=== PATIENT | female | born 1955 | race Two or more races ===

== ENCOUNTER 2024-09-15 20:29 | Emergency (ER) | payer OTHER, MEDICAID ==
[~2024-09-15] VITALS: Ht 162.6 cm; Wt 68.1 kg
--- NOTE | 2024-09-15 20:43 | ED.PDOC ---
History of Present Illness HPI Comments 69-year-old female who came to ER via EMS for hyperglycemia. Patient does have history of diabetes. Patient was picked at urgent care, were in patient was being checked up or episodes of nausea and vomiting for the past 4 days, along with some upper back pains. Currently being treated for urinary tract infe ction. Blood sugar was 331. 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 Family History Family History: Reviewed,noncontributory to illness Social History Smoker: Non-Smoker Alcohol: Denies ETOH Use Drugs: Denies Drug Use Lives In: Home Constitutional: reports: fatigue, weakness; denies: chills, diaphoresis, fever, malaise, sweats, others EENTM: denies: blurred vision, double vision, ear bleeding, ear discharge, ear drainage, ear pain, ear ringing, eye pain, eye redness, hearing loss, mouth pain, mouth swelling, nasal discharge, nose bleeding, nose congestion, nose pain, photophobia, tearing, throat pain, throat swelling, voice changes, others Respiratory: denies: cough, hemoptysis, orthopnea, SOB at rest, shortness of breath, SOB with excertion, stridor, wheezing, others Cardiovascular: denies: chest pain, dizzy spells, diaphoresis, Dyspnea on exertion, edema, irregular heart beat, left arm pain, lightheadedness, palpitations, PND, syncope, others Gastrointestinal: reports: nausea, vomiting; denies: abdomen distended, a bdominal pain, blood streaked bowels, constipated, diarrhea, dysphagia, difficulty swallowing, hematemesis, melena, poor appetite, poor fluid intake, rectal bleeding, rectal pain, others Genitourinary: denies: abnormal vagina bleeding, burning, dyspareunia, dysuria, flank pain, frequency, hematuria, incontinence, pain, , vagina discharge, urgency, others Neurological: denies: dizziness, fainting, headache, left sided numbness, left sided weakness, numbness, paresthesia, pre-existing deficit, right sided numbness, right sided weakness, seizure, speech problems, tingling, tremors, we akness, others Musculoskeletal: reports: back pain; denies: gout, joint pain, joint swelling, muscle pain, muscle stiffness, neck pain, others Integumetry: denies: bruises, change in color, change in hair/nails, dryness, laceration, lesions, lumps, rash, wounds, others Allergic/Immunocompromised: denies: Difficulty Healing, Frequent Infections, Hives, Itching, others Hematologic/Lymphatic: denies: anemia, blood clots, easy bleeding, easy bruising, swollen glands, others Endocrine: denies: excessive hunger, excessive sweating, excessive thirst, excessive urination, flushing, intolerance to cold, intolerance to heat, unexplained weight gain, unexplained weight loss, others Psychiatric: denies: anxiety, bipolar disorder, depression, hopeless, panic disorder, schizophrenia, sleepless, suicidal, others Physical Exam General Appearance: No Apparent Distress, Normal HEENT: Normal ENT Inspection, Pharynx Normal, TMs Normal Neck: Full Range of Motion, Non-Tender, Normal, Normal Inspection Respiratory: Chest Non-Tender, Lungs Clear, No Accessory Muscle Use, No Respiratory Distress, Normal Breath Sounds Cardiovascular: No Edema, No JVD, No Murmur, No Gallop, Normal Peripheral Pulses, Regular Rate/Rhythm Breast Exam: Deferred Gastrointestinal: No Organomegaly, Non Tender, No Pulsatile Mass, Normal Bowel Sounds, Soft Genitalia: Deferred Pelvic: Deferred Rectal: Deferred Extremities: No calf tenderness, Normal capillary refill, Normal inspection, Normal range of motion, Non-tender, No pedal edema Musculoskeletal : Apperance: Normal Neurologic: Alert, 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 Was a procedure done?: No Differential Dx Considerations may include: Gastritis, urinary tract infection, hyperglycemia, diabetic ketoacidosis, electrolyte imbalance X-Ray, Labs, Meds, VS Vital Signs Date Time Temp Pulse Resp B/P (MAP) Pulse Ox O2 Delivery O2 Flow Rate FiO2 09/15/24 22:13 81 20 100 Room Air 09/15/24 22:13 98.8 81 20 146/83 (104) 100 98.8 09/15/24 20:35 99.1 83 16 152/58 (89) 95 Lab Test 09/15/24 21:51 09/15/24 20:56 Range/Units Troponin I High Sensitivity < 3 L < 3 L </=34 ng/L White Blood Count 9.4 4.4-10.8 10^3/uL Red Blood Count 5.39 H 4.0-5.20 10^6/uL Hemoglobin 15.5 12.2-16.2 g/dL Hematocrit 45.5 36.0-46.0 % Mean Corpuscular Volume 84.3 80.0-100.0 fL Mean Corpuscular Hemoglobin 28.7 28.0-32.0 pg Mean Corpuscular Hemoglobin Concent 34.0 32.0-36.0 g/dL Red Cell Distribution Width 14.4 H 11.8-14.3 % Platelet Count 255 140-450 10^3/uL Mean Platelet Volume 7.5 6.9-10.8 fL Neutrophils (%) (Auto) 57.6 37.0-80.0 % Lymphocytes (%) (Auto) 36.6 10.0-50.0 % Monocytes (%) (Auto) 4.4 0.0-12.0 % Eosinophils (%) (Auto) 0.7 0.0-7.0 % Basophils (%) (Auto) 0.7 0.0-2.0 % Neutrophils # (Auto) 5.4 1.6-8.6 10 ^3/uL Lymphocytes # (Auto) 3.4 0.4-5.4 10 ^3/uL Monocytes # (Auto) 0.4 0-1.3 10 ^3/uL Eosinophils # (Auto) 0.1 0-0.8 10 ^3/uL Basophils # (Auto) 0.1 0-0.2 10 ^3/uL Nucleated Red Blood Cells 0.0 % Sodium Level 135 L 136-145 mmol/L Potassium Level 3.7 3.5-5.1 mmol/L Chloride Level 97 L 98-107 mmol/L Carbon Dioxide Level 24 20-31 mmol/L Anion Gap 14 5-15 Blood Urea Nitrogen 18 9-23 mg/dL Creatinine 0.82 0.550-1.02 mg/dL Glomerular Filtration Rate Calc 78 >90 mL/min BUN/Creatinine Ratio 22.0 H 10.0-20.0 Serum Glucose 289 H 74-106 mg/dL Calcium Level 10.7 H 8.7-10.4 mg/dL Total Bilirubin 0.8 0.2-1.0 mg/dL Aspartate Amino Transferase (AST) 27 13-40 U/L Alanine Aminotransferase (ALT) 35 7-40 U/L Alkaline Phosphatase 123 H 46-116 U/L Total Protein 7.6 5.7-8.2 g/dL Albumin 4.7 3.2-4.8 g/dL Current Medications Medications (Trade) Dose Ordered Sig/Tim Route Start Time Stop Time Status Last Admin Sodium Chloride 1,000 ml @ 1,000 mls/hr Q1H ONCE IV 09/15/24 20:45 09/15/24 21:44 DC 09/15/24 22:00 Ondansetron HCl (Zofran) 4 mg ONCE ONCE IV 09/15/24 20:45 09/15/24 20:46 DC 09/15/24 21:59 Ceftriaxone Sodium 50 ml @ 100 mls/hr ONCE ONCE IV 09/15/24 20:45 09/15/24 21:14 DC 09/15/24 22:00 Ketorolac Tromethamine (Toradol Injection) 30 mg ONCE ONCE IV 09/15/24 20:45 09/15/24 20:46 DC 09/15/24 22:00 Acetaminophen (Tylenol Tablet) 650 mg ONCE ONCE PO 09/15/24 20:45 09/15/24 20:46 DC 09/15/24 22:00 Exam: CT CT AB PEL WO CON-NO ORAL OR IV Findings: Lung Bases: No acute or significant lung base finding. Normal heart size. No pleural or pericardial effusion. Liver: The liver is normal in size. No focal lesions. Gallbladder and Biliary Tree: Gallbladder is been surgically removed. Spleen: Unremarkable Pancreas: The pancreas is grossly normal in appearance. Adrenal Glands: Unremarkable Kidneys: Kidneys are grossly normal without calculi or hydronephrosis. Small 2 cm hypodense cortical lesion left kidney most likely a cyst. Bladder: Grossly unremarkable for degree of distention. Bowel: The stomach is grossly normal in appearance. Small bowel and colon are normal in caliber and distribution. The appendix is not visualized; however, no secondary findings of acute appendicitis identified. Ascites: Absent Lymphadenopathy: No mesenteric, retroperitoneal or periportal lymphadenopathy. Abdominal Wall and Mesentery: Unremarkable. Vasculature: The visualized abdominal aorta is normal in size and caliber. Evaluation of abdominal and pelvic vessels is limited due to lack of intravenous contrast. Pelvic Organs: Unremarkable Musculoskeletal: No aggressive focal bony lesions, acute fractures or dislocation. Soft tissues: Unremarkable IMPRESSION: 1. Gallbladder has been surgically removed. 2. No abnormally dilated bowel to suggest bowel obstruction. 3. Small 2 cm cyst left kidney 4. No nephrolithiasis or hydronephrosis. CHEST RADIOGRAPH FINDINGS: Lines and Tubes: None Lungs: Clear Pleura: No effusion. No pneumothorax. Cardiomediastinal contours: Unremarkable Bones: Unremarkable IMPRESSION: 1. Clear lungs. First and 2nd troponin is three. EKG shows no signs of ischemia. CBC is normal. CMP is essentially normal. Itself the blood sugar is 289 The patient will be discharged to follow up with the primary care physician she can return to the emergency room and continue antibiotics which she was given by the urgent care. Time of 1ST Reevaluation: 20:40 Reevaluation 1ST: Unchanged Patient Education/Counseling: Diagnosis, Treatment Family Education/Counseling: No Family Present Departure 1 Departure Time of Disposition: 23:19 Impression: Primary Impression: Hyperglycemia Additional Impressions: Gastroenteritis UTI (urinary tract infection) Disposition: 01 HOME / SELF CARE / HOMELESS Condition: Stable Additional Instructions: Reassessed patient, vital signs stable. Denies any new symptoms. Patient is able to tolerate PO and ambulate/be mobile at their baseline without concern. Risks and benefits of all medications given or prescribed, if any, discussed. All lab work, imaging and diagnostic studies were reviewed by me. The patient was counseled extensively on my clinical impression, diagnosis, expected course of the disease, and plan, including their follow-up care. Will discharge patient. Patient instructed to follow up with Primary Care Physician within 24-48 hours. Strict return precautions given for further exacerbation of symptoms or for new symptoms. The patient was given the opportunity to ask questions and all questions were answered by myself and the nursing/tech staff. Patient is in agreement with the care plan. The patient verbally expressed understanding of the discharge instructions, including the reasons to return to the Emergency Department. Discharged With: Self Critical Care Note Critical Care Time?: Yes (35 min-critical care time only) Critical care comment: Hyperglycemia Stability Stability form required: No Heart Score Heart Score: Heart Score Response (Comments) Value History N/A 0 EKG N/A 0 Age N/A 0 Risk Factors N/A 0 Troponin N/A 0 Total 0 I personally scribed for BUCK MARTI MD ([email or web address]) on 09/15/24 at 20:43. Electronically submitted by Kendell Piedra ([email or web address]). I personally scribed for BUCK MARTI MD ([email or web address]) on 09/15/24 at 22:43. Electronically submitted by Kendell Piedra ([email or web address]). BUCK MARTI MD Sep 15, 2024 20:43
[2024-09-15 21:13] LABS: Basophils # (auto) 0.1 10 ^3/uL (0-0.2); Basophils % (auto) 0.7 % (0.0-2.0); Eosinophils # (auto) 0.1 10 ^3/uL (0-0.8); Eosinophils % (auto) 0.7 % (0.0-7.0); Hematocrit 45.5 % (36.0-46.0); Hemoglobin 15.5 g/dL (12.2-16.2); Lymphocytes # (auto) 3.4 10 ^3/uL (0.4-5.4); Lymphocytes % (auto) 36.6 % (10.0-50.0); Mean Corpuscular Hemoglobin 28.7 pg (28.0-32.0); Mean Corpuscular Volume 84.3 fL (80.0-100.0); Monocytes # (auto) 0.4 10 ^3/uL (0-1.3); Monocytes % (auto) 4.4 % (0.0-12.0); Neutrophils # (auto) 5.4 10 ^3/uL (1.6-8.6); Neutrophils % (auto) 57.6 % (37.0-80.0); Platelet Count (auto) 255 10^3/uL (140-450); Red Blood Cells 5.39 10^6/uL (4.0-5.20); Red Cell Distribution Width 14.4 % (11.8-14.3); White Blood Cell 9.4 10^3/uL (4.4-10.8)
[2024-09-15 21:34] LABS: Alanine Aminotransferase 35 U/L (7-40); Albumin 4.7 g/dL (3.2-4.8); Anion Gap 14 (5-15); Aspartate Aminotransferase 27 U/L (13-40); Bilirubin, Total 0.8 mg/dL (0.2-1.0); Blood Urea Nitrogen 18 mg/dL (9-23); Carbon Dioxide 24 mmol/L (20-31); Potassium 3.7 mmol/L (3.5-5.1)
[2024-09-15 21:35] LABS: Total Protein 7.6 g/dL (5.7-8.2)
[2024-09-15 21:42] LABS: Chloride 97 mmol/L (98-107); Sodium 135 mmol/L (136-145)
--- NOTE | 2024-09-15 21:46 | DVH ---
CHEST RADIOGRAPH Indication: N/V Technique: Single frontal view of the chest was obtained Comparison: None FINDINGS: Lines and Tubes: None Lungs: Clear Pleura: No effusion. No pneumothorax. Cardiomediastinal contours: Unremarkable Bones: Unremarkable IMPRESSION: 1. Clear lungs.
[2024-09-15 21:48] LABS: Alkaline Phosphatase 123 U/L (46-116); Calcium 10.7 mg/dL (8.7-10.4); Glucose 289 mg/dL (74-106)
[2024-09-15] MEDS: ONDANSETRON HCL 4 MG/2 ML VIAL IV ONE (21:59)
[2024-09-15] MEDS: ACETAMINOPHEN 325 MG TAB PO ONE (22:00)
[2024-09-15] MEDS: SODIUM CHLORIDE 0.9% 1,000 ML IV ONE (22:00)
[2024-09-15] MEDS: cefTRIAXone 1GM/50ML D5W 50 ML IV ONE (22:00)
[2024-09-15] MEDS: KETOROLAC TROMETH 30 MG/ML 1ML VIAL IV ONE (22:00)
--- NOTE | 2024-09-15 22:03 | DVH ---
Exam: CT CT AB PEL WO CON-NO ORAL OR IV History: n/v Comparison Study: None available at time of dictation. TECHNIQUE: Multidetector CT of the abdomen was performed from lung bases to pubic symphysis. Imaging was performed without IV contrast. Axial, coronal and sagittal multiplanar reformats were obtained fr om the axial data set by the technologist. Radiation Dose Information: CT Dose: CTDI volume is 11.72 mGy. Dose-length product is 672.48 mGy*cm FINDINGS: Evaluation of solid organs is limited due to lack of intravenous contrast use. Findings: Lung Bases: No acute or significant lung base finding. Normal heart size. No pleural or pericardial effusion. Liver: The liver is normal in size. No focal lesions. Gallbladder and Biliary Tree: Gallbladder is been surgically removed. Spleen: Unremarkable Pancreas: The pancreas is grossly normal in appearance. Adrenal Glands: Unremarkable Kidneys: Kidneys are grossly normal without calculi or hydronephrosis. Small 2 cm hypodense cortical lesion left kidney most likely a cyst. Bladder: Grossly unremarkable for degree of distention. Bowel: The stomach is grossly normal in appearance. Small bowel and colon are normal in caliber and d istribution. The appendix is not visualized; however, no secondary findings of acute appendicitis id entified. Ascites: Absent Lymphadenopathy: No mesenteric, retroperitoneal or periportal lymphadenopathy. Abdominal Wall and Mesentery: Unremarkable. Vasculature: The visualized abdominal aorta is normal in size and caliber. Evaluation of abdominal a nd pelvic vessels is limited due to lack of intravenous contrast. Pelvic Organs: Unremarkable Musculoskeletal: No aggressive focal bony lesions, acute fractures or dislocation. Soft tissues: Unremarkable IMPRESSION: 1. Gallbladder has been surgically removed. 2. No abnormally dilated bowel to suggest bowel obstruction. 3. Small 2 cm cyst left kidney 4. No nephrolithiasis or hydronephrosis. Radiation optimization: All CT scans at this facility use at least one of these dose optimization te chniques: automated exposure control mA and/or kV adjustment per patient size (includes targeted exa ms where dose is matched to clinical indication) or iterative reconstruction.
[2024-09-15 22:13] VITALS: BP 146/83; PULSE 81; RESP 20; TEMP 98.8; O2SAT 100
[2024-09-16] MEDS ORDERED: LEVO500T91 PO (01:20)
[2024-09-16] MEDS ORDERED: ZOFR4T SL (01:20)
== END 2024-09-16 01:35 | disposition home or self-care (01) ==
LOC: EDBD 20:29 → EDUNIT# 20:29 → ER 20:36
DX: E11.65 Type 2 diabetes mellitus with hyperglycemia (principal); K52.9 Noninfective gastroenteritis and colitis, unspecified; N39.0 Urinary tract infection, site not specified; Z88.1 Allergy status to other antibiotic agents; Z90.49 Acquired absence of other specified parts of digestive tract; Z90.710 Acquired absence of both cervix and uterus
CPT/HCPCS: 36415; 71045; 74176; 80053; 82947; 84484; 85025; 96365; 96375; 99285; J0696; J1885; J2405; J7030

== ENCOUNTER 2025-02-05 20:41 | Inpatient (IN) | payer OTHER, MEDICAID ==
[~2025-02-05] VITALS: Ht 165.1 cm; Wt 79.8 kg
[~2025-02-05 20:41] MED LIST: LEVO500T91 PO; ZOFR4T SL
--- NOTE | 2025-02-05 20:55 | ED.PDOC ---
History of Present Illness HPI Comments 69-year-old female brought in by EMS presents with a chief complaint of dizziness and headache x onset 0800 this morning. Patient states that she has been having dizziness since this morning and thought that it would go away on its own, but it has not. Patient denies any falls or trauma recently. Patient reports that she is nauseated, but denies any active vomiting. Patient also mentions that she is currently battling a UTI and as foul odor to her urine. Chief Complaint: Dizziness Time Seen by MD: 20:44 Primary Care Provider: Dr. Alicia Reviewed Notes: Medications, Allergies Allergies: Coded Allergies: Azithromycin (Verified Allergy, Unknown, 09/15/24) Cyclobenzaprine (Verified Allergy, Unknown, 02/05/25) Nitrofurantoin (Verified Allergy, Unknown, 02/05/25) Penicillins (Verified Allergy, Unknown, 02/05/25) Sulfa Antibiotics (Verified Allergy, Unknown, 02/05/25) Home Meds Active Scripts Ondansetron Odt 4MG Tab (ZOFRAN PO) 4 Mg Tb, 4 MG SL QIDPRN, #20 TAB ODT TAB-DISSOLVE IN MOUTH, THEN SWALLOW Prov:BUCK MARTI MD 09/16/24 Levofloxacin Hemihydrate (LEVAQUIN 500 MG) 500 Mg Tab, 500 MG PO DAILY for 7 Days, #7 TAB Prov:BUCK MARTI MD 09/16/24 Information Source: Patient, Emergency Med Personnel Mode of Arrival: EMS Severity: Moderate Timing: Hours Duration: Since onset 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 No acute distress. Skin: Skin in warm, dry and intact. Appropriate color for ethnicity. HEENT: The head is normocephalic and atraumatic. Conjunctivae are clear without exudates or hemorrhage. Sclera is non-icteric. EOM are intact. No signs of nystagmus. Eyelids are normal in appearance without swelling or lesions. Oral mucosa is pink and moist Neck: The neck is supple with normal range of motion. No JVD. Cardiac: Heart rate and rhythm are normal. No murmurs, gallops, or rubs are auscultated. Respiratory: No signs of respiratory distress. Lung sounds are clear in all lobes bilaterally without rales, rhonchi, or wheezes. Abdominal: Abdomen is soft, non-tender without distention. Bowel sounds are present and normoactive in all four quadrants. Extremities: Upper and lower extremities are atraumatic in appearance without deformity or edema. Neurological: The patient is awake, alert and oriented to person, place, and time with normal speech. Speech is clear. There is no facial asymmetry. No upper or lower extremity drift. Psychiatric: Appropriate mood and affect. Good judgement and insight. Review of Systems: REVIEW OF SYSTEMS: No fever, positive chills, or fatigue HEENT: No sore throat, no earache, no congestion, no neck pain. Cardiac: No chest pain. Positive palpitations. Lungs: No shortness of breath, no cough. GI: Positive nausea, no vomiting, no diarrhea, no constipation, no abdominal pain : Positive dysuria, frequency, or urgency. No hematuria. Positive urine odor. Musculoskeletal: No joint pain , no joint swelling, no extremity edema. Positive back pain Skin: No rash, no itching. 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 Was a procedure done?: No EKG EKG : Pulse Rate (adult): 69 [place]: Normal Cardiac Rhythm: NSR Block: None Hypertrophy: None ST: Normal Comments Nonspecific ST change. No STEMI Differential Dx Considerations may include: Differential diagnoses considered include but are not limited to cardiac structural disease, arrhythmia, acute coronary syndrome, orthostasis, pulmonary embolism, dissection, seizure, basilar stroke, other. X-Ray, Labs, Meds, VS Vital Signs Date Time Temp Pulse Resp B/P (MAP) Pulse Ox O2 Delivery O2 Flow Rate FiO2 02/05/25 21:16 98.6 89 16 127/87 (100) 96 98.6 02/05/25 20:56 69 02/05/25 20:49 98.8 66 16 139/83 (101) 99 98.8 02/05/25 20:45 69 Lab Test 02/05/25 22:06 02/05/25 21:06 02/05/25 00:00 Range/Units Troponin I High Sensitivity 3 L 3 L </=34 ng/L White Blood Count 7.0 4.4-10.8 10^3/uL Red Blood Count 4.78 4.0-5.20 10^6/uL Hemoglobin 13.3 12.2-16.2 g/dL Hematocrit 37.6 36.0-46.0 % Mean Corpuscular Volume 78.7 L 80.0-100.0 fL Mean Corpuscular Hemoglobin 27.8 L 28.0-32.0 pg Mean Corpuscular Hemoglobin Concent 35.3 32.0-36.0 g/dL Red Cell Distribution Width 14.3 11.8-14.3 % Platelet Count 235 140-450 10^3/uL Mean Platelet Volume 7.1 6.9-10.8 fL Neutrophils (%) (Auto) 59.9 37.0-80.0 % Lymphocytes (%) (Auto) 31.7 10.0-50.0 % Monocytes (%) (Auto) 5.1 0.0-12.0 % Eosinophils (%) (Auto) 2.5 0.0-7.0 % Basophils (%) (Auto) 0.8 0.0-2.0 % Neutrophils # (Auto) 4.2 1.6-8.6 10 ^3/uL Lymphocytes # (Auto) 2.2 0.4-5.4 10 ^3/uL Monocytes # (Auto) 0.4 0-1.3 10 ^3/uL Eosinophils # (Auto) 0.2 0-0.8 10 ^3/uL Basophils # (Auto) 0.1 0-0.2 10 ^3/uL Nucleated Red Blood Cells 0.0 % Sodium Level 137 136-145 mmol/L Potassium Level 3.7 3.5-5.1 mmol/L Chloride Level 99 98-107 mmol/L Carbon Dioxide Level 30 20-31 mmol/L Anion Gap 8 5-15 Blood Urea Nitrogen 13 9-23 mg/dL Creatinine 0.70 0.550-1.02 mg/dL Glomerular Filtration Rate Calc 95 >90 mL/min BUN/Creatinine Ratio 18.6 10.0-20.0 Serum Glucose 327 H 74-106 mg/dL Calcium Level 9.7 8.7-10.4 mg/dL Magnesium Level 1.4 L 1.6-2.6 mg/dL Total Bilirubin 0.7 0.2-1.0 mg/dL Aspartate Amino Transferase (AST) 23 13-40 U/L Alanine Aminotransferase (ALT) 37 7-40 U/L Alkaline Phosphatase 131 H 46-116 U/L B-Type Natriuretic Peptide 12.44 0-100 pg/mL Total Protein 6.8 5.7-8.2 g/dL Albumin 4.1 3.2-4.8 g/dL Urine Color Light-yellow Yellow Urine Clarity Clear Clear Urine pH 7.0 5.0-9.0 Urine Specific [place] 1.025 1.001-1.035 Urine Protein Negative Negative Urine Ketones Negative Negative Urine Blood Negative Negative /uL Urine Nitrite 2+ H Negative Urine Bilirubin Negative Negative Urine Urobilinogen Normal Negative mg/dL Urine Leukocyte Esterase 3+ Negative /uL Urine RBC 3 0 - 4 /hpf Urine Microscopic WBC 64 H 0-5 /HPF Urine Squamous Epithelial Cells Few <5 /hpf Urine Bacteria Few H None Seen /hpf Urine Mucus Few None Seen Urine Glucose 4+ H Normal mg/dL Current Medications Medications (Trade) Dose Ordered Sig/Tim Route Start Time Stop Time Status Last Admin Sodium Chloride 1,000 ml @ 1,000 mls/hr Q1H ONCE IV 02/05/25 21:00 02/05/25 21:59 DC 02/05/25 21:13 Meclizine HCl (Antivert Tablet) 50 mg ONCE ONCE PO 02/05/25 21:00 02/05/25 21:01 DC 02/05/25 21:16 Magnesium Sulfate/ Dextrose 100 ml @ 100 mls/hr ONCE ONCE IV 02/05/25 22:15 02/05/25 23:14 DC 02/05/25 22:34 Time of 1ST Reevaluation: 21:14 Reevaluation 1ST: Unchanged Patient Education/Counseling: Need For Follow Up Family Education/Counseling: No Family Present Departure 1 Departure Time of Disposition: 23:21 Impression: Primary Impression: UTI (urinary tract infection) Additional Impression: Dizziness Disposition: 09 ADMITTED INPATIENT Condition: Stable Comments PATIENT ADMITTED TO HOSPITALIST SERVICE FOR FURTHER TREATMENT, EVALUATION AND MONITORING. Critical Care Note Critical Care Time?: No Stability Stability form required: No Heart Score Heart Score: Heart Score Response (Comments) Value History N/A 0 EKG N/A 0 Age N/A 0 Risk Factors N/A 0 Troponin N/A 0 Total 0 I personally scribed for UGO SOTELO MD ([email or web address]) on 02/05/25 at 20:55. Electronically submitted by Khris Smith ([email or web address]). I personally scribed for UGO SOTELO MD ([email or web address]) on 02/05/25 at 20:56. Elec tronically submitted by Khris Smith ([email or web address]). UGO SOTELO MD February 05, 2025 20:55
[2025-02-05] MEDS: SODIUM CHLORIDE 0.9% 1,000 ML IV ONE (21:13)
[2025-02-05 21:14] LABS: Basophils # (auto) 0.1 10 ^3/uL (0-0.2); Basophils % (auto) 0.8 % (0.0-2.0); Eosinophils # (auto) 0.2 10 ^3/uL (0-0.8); Eosinophils % (auto) 2.5 % (0.0-7.0); Hematocrit 37.6 % (36.0-46.0); Hemoglobin 13.3 g/dL (12.2-16.2); Lymphocytes # (auto) 2.2 10 ^3/uL (0.4-5.4); Lymphocytes % (auto) 31.7 % (10.0-50.0); Mean Corpuscular Hemoglobin 27.8 pg (28.0-32.0); Mean Corpuscular Hgb Conc. 35.3 g/dL (32.0-36.0); Mean Corpuscular Volume 78.7 fL (80.0-100.0); Monocytes # (auto) 0.4 10 ^3/uL (0-1.3); Monocytes % (auto) 5.1 % (0.0-12.0); Neutrophils # (auto) 4.2 10 ^3/uL (1.6-8.6); Neutrophils % (auto) 59.9 % (37.0-80.0); Platelet Count (auto) 235 10^3/uL (140-450); Red Blood Cells 4.78 10^6/uL (4.0-5.20); Red Cell Distribution Width 14.3 % (11.8-14.3)
[2025-02-05] MEDS: MECLIZINE HCL 25 MG TAB PO ONE (21:16)
[2025-02-05 21:32] LABS: Alanine Aminotransferase 37 U/L (7-40); Albumin 4.1 g/dL (3.2-4.8); Anion Gap 8 (5-15); Aspartate Aminotransferase 23 U/L (13-40); BUN/Creatinine Ratio 18.6 (10.0-20.0); Bilirubin, Total 0.7 mg/dL (0.2-1.0); Blood Urea Nitrogen 13 mg/dL (9-23); Calcium 9.7 mg/dL (8.7-10.4); Carbon Dioxide 30 mmol/L (20-31); Chloride 99 mmol/L (98-107); Potassium 3.7 mmol/L (3.5-5.1); Sodium 137 mmol/L (136-145); Total Protein 6.8 g/dL (5.7-8.2)
[2025-02-05 21:34] LABS: Alkaline Phosphatase 131 U/L (46-116); Glucose 327 mg/dL (74-106)
[2025-02-05] MEDS: MAGNESIUM SULFATE 1GM/100ML 100 ML IV ONE (22:34)
[2025-02-05 23:01] LABS: Urine Bacteria FEW /hpf (None Seen); Urine Blood Negative /uL (Negative); Urine Clarity Clear (Clear); Urine Color Light-Yellow (Yellow); Urine Mucus FEW (None Seen); Urine Protein, UAD Negative (Negative); Urine Specific Gravity 1.025 (1.001-1.035); Urine Squamous Epithelial Cell FEW /hpf (<5); Urine Urobilinogen Normal (Negative); Urine WBC 64 /HPF (0-5)
[2025-02-06] MEDS: levoFLOXacin 500MG 100 ML IV ONE (00:27)
[2025-02-06] MEDS ORDERED: ACETAMINOPHEN 325 MG TAB PO PRN (01:45)
[2025-02-06] MEDS ORDERED: DEXTROSE (50%) 50ML SYRG IV PRN (01:45)
[2025-02-06] MEDS ORDERED: ONDANSETRON HCL 4 MG/2 ML VIAL IV PRN (01:45)
[2025-02-06] MEDS ORDERED: HYDROcodone-ACET 5/325MG TAB PO PRN (01:45)
[2025-02-06] MEDS ORDERED: MORPHINE SULFATE INJ 2 MG/ml SYRG IV PRN (01:45)
[2025-02-06] MEDS ORDERED: NITROGLYCERIN 0.4 MG SL TAB SL PRN (01:45)
[2025-02-06] MEDS: SODIUM CHLORIDE 0.9% 1,000 ML IV SCH (02:20)
[2025-02-06 02:27] VITALS: RESP 20; O2SAT 96
--- NOTE | 2025-02-06 04:17 | DVHHP2 ---
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 States she has been dealing with UTI for the past four months. Is scheduled for bladder biopsy with Dr. Mandujano on . At this time patient denies any fevers, chills, headaches, falls, shortness of breath, chest pain,Nausea, vomiting. Cardiovascular: HTN Endocrine: Diabetes Smoke: No Review of Systems Constitutional: Yes: Weakness, Malaise; No: Fever, Chills, Sweats, Other Eyes: No: Pain, Vision change, Conjunctivae inflammation, Eyelid inflammation, Other, Redness ENT: No: Ear pain, Ear discharge, Nose pain, Nose discharge, Nose congestion, Mouth pain, Mouth swelling, Throat pain, Throat swelling, Other Respiratory: No: Cough, Dry, Shortness of breath, SOB with excertion, Wheezing, Hemoptysis, Pleuritic Pain, Sputum, Wheezing, Other Cardiovascular: No: Chest Pain, Palpitations, Orthopnea, Paroxysmal Noc. Dyspnea, Edema, Lt Headedness, Other Gastrointestinal: No: Nausea, Vomiting, Abdominal Pain, Diarrhea, Constipation, Melena, Hematochezia, Other Genitourinary: Dysuria; No Frequency, No Incontinence, No Hematuria, No Retention, No Other Musculoskeletal: No: other, neck pain, shoulder pain, arm pain, back pain, hand pain, leg pain, foot pain Skin: No: Rash, Lesions, Jaundice, Bruising, Other Neurological: Weakness; No: Numbness, Incoordination, Change in speech, Confusion, Seizures, Other Allergies: Coded Allergies: Azithromycin (Verified Allergy, Unknown, 09/15/24) Cyclobenzaprine (Verified Allergy, Unknown, 02/05/25) Nitrofurantoin (Verified Allergy, Unknown, 02/05/25) Penicillins (Verified Allergy, Unknown, 02/05/25) Sulfa Antibiotics (Verified Allergy, Unknown, 02/05/25) Medications Current Medications Medications Dose Ordered Sig/Tim Route Start Time Stop Time Status Last Admin Dose Admin Sodium Chloride 1,000 ml @ 75 mls/hr [id number] IV 02/06/25 01:45 Acetaminophen 650 mg Q6HP PRN PO 02/06/25 01:45 Acetaminophen/ Hydrocodone Bitart 1 tab Q4HP PRN PO 02/06/25 01:45 Ondansetron HCl 4 mg Q4HP PRN IV 02/06/25 01:45 Nitroglycerin 0.4 mg Q5MINP PRN SL 02/06/25 01:45 Morphine Sulfate 2 mg Q30M PRN IV 02/06/25 01:45 Diagnostic Test (Pha) 1 strip ACHS 02/06/25 07:00 Insulin Human Regular HS SC 02/06/25 22:00 Insulin Human Regular AC SC 02/06/25 07:00 Dextrose 50 ml UD PRN IV 02/06/25 01:45 Meclizine HCl 25 mg TIDP PRN PO 02/06/25 01:45 Levofloxacin/ Dextrose 100 ml @ 100 mls/hr DAILY IV 02/06/25 10:00 UNV Exam Vital Signs Vital Signs Date Time Temp Pulse Resp B/P (MAP) Pulse Ox O2 Delivery O2 Flow Rate FiO2 02/06/25 02:33 98.3 72 20 136/56 (82) 96 98.3 02/06/25 02:27 Room Air* 0 21 General Appearance: Alert, Oriented X3, Cooperative, mild distress, Other (Ill appearing) HEENT: Atraumatic, PERRLA, EOMI Respiratory: Clear to auscultation, Normal air movement Cardiovascular: Regular rate, Normal S1, Normal S2 Abdominal: Normal bowel sounds, Soft, No tenderness Extremities: No clubbing, No cyanosis, No edema Skin: No rashes, No breakdown Neuro: Normal speech, Strength at 02/05 X4 ext Psych/Mental Status: Mental status NL, Mood NL Labs/Xrays Labs Test 02/05/25 22:06 02/05/25 21:06 02/05/25 00:00 Range/Units Troponin I High Sensitivity 3 L </=34 ng/L White Blood Count 7.0 4.4-10.8 10^3/uL Red Blood Count 4.78 4.0-5.20 10^6/uL Hemoglobin 13.3 12.2-16.2 g/dL Hematocrit 37.6 36.0-46.0 % Mean Corpuscular Volume 78.7 L 80.0-100.0 fL Mean Corpuscular Hemoglobin 27.8 L 28.0-32.0 pg Mean Corpuscular Hemoglobin Concent 35.3 32.0-36.0 g/dL Red Cell Distribution Width 14.3 11.8-14.3 % Platelet Count 235 140-450 10^3/uL Mean Platelet Volume 7.1 6.9-10.8 fL Neutrophils (%) (Auto) 59.9 37.0-80.0 % Lymphocytes (%) (Auto) 31.7 10.0-50.0 % Monocytes (%) (Auto) 5.1 0.0-12.0 % Eosinophils (%) (Auto) 2.5 0.0-7.0 % Basophils (%) (Auto) 0.8 0.0-2.0 % Neutrophils # (Auto) 4.2 1.6-8.6 10 ^3/uL Lymphocytes # (Auto) 2.2 0.4-5.4 10 ^3/uL Monocytes # (Auto) 0.4 0-1.3 10 ^3/uL Eosinophils # (Auto) 0.2 0-0.8 10 ^3/uL Basophils # (Auto) 0.1 0-0.2 10 ^3/uL Nucleated Red Blood Cells 0.0 % Sodium Level 137 136-145 mmol/L Potassium Level 3.7 3.5-5.1 mmol/L Chloride Level 99 98-107 mmol/L Carbon Dioxide Level 30 20-31 mmol/L Anion Gap 8 5-15 Blood Urea Nitrogen 13 9-23 mg/dL Creatinine 0.70 0.550-1.02 mg/dL Glomerular Filtration Rate Calc 95 >90 mL/min BUN/Creatinine Ratio 18.6 10.0-20.0 Serum Glucose 327 H 74-106 mg/dL Calcium Level 9.7 8.7-10.4 mg/dL Magnesium Level 1.4 L 1.6-2.6 mg/dL Total Bilirubin 0.7 0.2-1.0 mg/dL Aspartate Amino Transferase (AST) 23 13-40 U/L Alanine Aminotransferase (ALT) 37 7-40 U/L Alkaline Phosphatase 131 H 46-116 U/L B-Type Natriuretic Peptide 12.44 0-100 pg/mL Total Protein 6.8 5.7-8.2 g/dL Albumin 4.1 3.2-4.8 g/dL Urine Color Light-yellow Yellow Urine Clarity Clear Clear Urine pH 7.0 5.0-9.0 Urine Specific [place] 1.025 1.001-1.035 Urine Protein Negative Negative Urine Ketones Negative Negative Urine Blood Negative Negative /uL Urine Nitrite 2+ H Negative Urine Bilirubin Negative Negative Urine Urobilinogen Normal Negative mg/dL Urine Leukocyte Esterase 3+ Negative /uL Urine RBC 3 0 - 4 /hpf Urine Microscopic WBC 64 H 0-5 /HPF Urine Squamous Epithelial Cells Few <5 /hpf Urine Bacteria Few H None Seen /hpf Urine Mucus Few None Seen Urine Glucose 4+ H Normal mg/dL Assessment/Plan Assessment/Plan Dizziness Complicated UTI Hypomanesemia DM with hyperglycemia Plan Admit to telemetry Urology consult ( pt scheduled for bladder biopsy with dr mandujano) Monitor BMP. Correct electrolytes as needed. Urine culture pending. IVF. As needed meclizine. IV ABX Blood glucose checks ACHS with regular insulin sliding scale coverage GI ppx pepcid / dvt ppx scd Plan discussed with: Patient My Orders Orders - NOE GLASGOW NP Procedure Category Date Status Time Admit ADMIT 02/06/25 Transmitted 01:35 Code Status CODE 02/06/25 Transmitted 01:35 Vital Signs OFELIA 02/06/25 In Process 01:35 Review Orders With OFELIA 02/06/25 In Process Adm. 01:35 Encourage Activity As OFELIA 02/06/25 In Process Tolerate 01:35 Consistent DIET 02/06/25 Transmitted Carb(Ccho)Diabetes Breakfast Sodium Chloride 0.9% PHA 02/06/25 In Process 01:45 Oxygen By Face Mask RT 02/06/25 Transmitted 01:35 Acetaminophen Tablet PHA 02/06/25 In Process (Tylenol Tablet) 01:45 Notify Of Changes OFELIA 02/06/25 In Process From Base 01:35 Advance Directive OFELIA 02/06/25 In Process 01:35 Basic Metabolic Panel LAB 02/06/25 Logged 05:00 Basic Metabolic Panel LAB 02/07/25 Verified 05:00 Basic Metabolic Panel LAB 02/08/25 Verified 05:00 Basic Metabolic Panel LAB 02/09/25 Verified 05:00 Basic Metabolic Panel LAB 02/10/25 Verified 05:00 Complete Blood Count LAB 02/06/25 Logged 05:00 Complete Blood Count LAB 02/07/25 Verified 05:00 Complete Blood Count LAB 02/08/25 Verified 05:00 Complete Blood Count LAB 02/09/25 Verified 05:00 Complete Blood Count LAB 02/10/25 Verified 05:00 Patient Condition ORDERS 02/06/25 Transmitted 01:35 Allergies OFELIA 02/06/25 In Process 01:35 Hydrocodone-Acet PHA 02/06/25 In Process 5/325mg Tab ([place] 01:45 Ondansetron Hcl PHA 02/06/25 In Process (Zofran) 01:45 Nitroglycerin PHA 02/06/25 In Process Sublingual (Ntrostat 01:45 Morphine Sulfate PHA 02/06/25 In Process Injection 01:45 Stat Ekg For Chest OFELIA 02/06/25 In Process Pain 01:35 Notify Md Of Changes OFELIA 02/06/25 In Process From Base 01:35 Milking Machine Technician For OFELIA 02/06/25 In Process 24 Hours 01:35 Emergency Dysrhythmia OFEILA 02/06/25 In Process Protocol 01:35 Rhythm Strips Once OFELIA 02/06/25 In Process Every Shift 01:35 Oxygen By Nasal RT 02/06/25 Transmitted Cannula 01:35 Glucose Blood PHA 02/06/25 In Process (Accu-Chek Comfort 07:00 Insulin R (Human) PHA 02/06/25 In Process (Insulin R) 22:00 Insulin R (Human) PHA 02/06/25 In Process (Insulin R) 07:00 Dextrose 50% Syringe PHA 02/06/25 In Process 01:45 Urine Bacterial AUBREY 02/06/25 In Process Culture 01:35 * Urology Consult CONS 02/06/25 Transmitted 01:35 Meclizine Tablet PHA 02/06/25 In Process (Antivert Tablet) 01:45 Levofloxacin 500mg PHA 02/06/25 Pending (Levaquin 500mg/ 100m 10:[address] 02/06/25 Logged 04:07 Date of Service: February 06, 2025 Billing Provider: RACHEL HAZEL MD Common Visit Codes: NOT BILLABLE RACHEL HAZEL MD 02/06/25 1225: Review of Systems Allergies: Coded Allergies: Azithromycin (Verified Allergy, Unknown, 09/15/24) Cyclobenzaprine (Verified Allergy, Unknown, 02/05/25) Nitrofurantoin (Verified Allergy, Unknown, 02/05/25) Penicillins (Verified Allergy, Unknown, 02/05/25) Sulfa Antibiotics (Verified Allergy, Unknown, 02/05/25) Assessment/Plan Assessment/Plan Patient's chart is reviewed and discussed with the nurse practitioner. I agree with the nurse practitioner's evaluation, documentation, assessment and care plan as outlined. NOE GLASGOW NP February 06, 2025 04:17 RACHEL HAZEL MD February 06, 2025 12:25
[2025-02-06 05:31] LABS: Basophils # (auto) 0 10 ^3/uL (0-0.2); Basophils % (auto) 0.2 % (0.0-2.0); Eosinophils # (auto) 0.2 10 ^3/uL (0-0.8); Eosinophils % (auto) 2.4 % (0.0-7.0); Hematocrit 35.2 % (36.0-46.0); Hemoglobin 12.7 g/dL (12.2-16.2); Lymphocytes # (auto) 2.4 10 ^3/uL (0.4-5.4); Lymphocytes % (auto) 28.8 % (10.0-50.0); Mean Corpuscular Hemoglobin 28.3 pg (28.0-32.0); Mean Corpuscular Hgb Conc. 36.1 g/dL (32.0-36.0); Mean Corpuscular Volume 78.4 fL (80.0-100.0); Monocytes # (auto) 0.5 10 ^3/uL (0-1.3); Neutrophils # (auto) 5.1 10 ^3/uL (1.6-8.6); Neutrophils % (auto) 62.6 % (37.0-80.0); Nucleated Red Blood Cells % 0.1 %; Platelet Count (auto) 233 10^3/uL (140-450); Red Blood Cells 4.49 10^6/uL (4.0-5.20); Red Cell Distribution Width 14.1 % (11.8-14.3); White Blood Cell 8.2 10^3/uL (4.4-10.8)
[2025-02-06 05:48] LABS: Calcium 9.3 mg/dL (8.7-10.4); Chloride 104 mmol/L (98-107); Sodium 139 mmol/L (136-145)
[2025-02-06 05:49] LABS: Anion Gap 7 (5-15); Carbon Dioxide 28 mmol/L (20-31)
--- NOTE | 2025-02-06 05:52 | DVH ---
EXAM: CT Head Without Intravenous Contrast CLINICAL INDICATION: dizziness TECHNIQUE: Axial computed tomography images of the head/brain without intravenous contrast. This CT exam was performed using one or more of the following dose reduction techniques: automated exposure control, adjustment of the mA and/or kV according to patient size, and/or use of iterative reconstru ction technique. CONTRAST: RADIATION DOSE: CTDIvol = 56.61 mGy, DLP = 794.27 mGy-cm COMPARISON: None FINDINGS: BRAIN AND EXTRA-AXIAL SPACES: No acute intracranial hemorrhage, midline shift or mass effect. If sy mptoms persist, further evaluation with MRI is recommended. No significant white matter disease. BONES/JOINTS: Unremarkable. No acute fracture. SOFT TISSUES: Unremarkable. SINUSES: Unremarkable as visualized. No acute sinusitis. MASTOID AIR CELLS: Unremarkable as visualized. No mastoid effusion. OTHER FINDINGS: . IMPRESSION: No acute intracranial hemorrhage, midline shift or mass effect. If symptoms persist, further evaluat ion with MRI is recommended.
[2025-02-06 05:54] LABS: BUN/Creatinine Ratio 18.3 (10.0-20.0); Blood Urea Nitrogen 11 mg/dL (9-23)
[2025-02-06 06:05] LABS: Glucose 216 mg/dL (74-106)
--- NOTE | 2025-02-06 06:58 | ECG ---
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
[2025-02-06] MEDS: InsuLIN REG 1unit/0.01ml Soln (100units/ml) SC SCH ×2 (07:19→21:37)
[2025-02-06] MEDS: ACCU-CHEK COMFORT CURVE STRIP VI SCH (07:19)
[2025-02-06 08:41] VITALS: PULSE 61; RESP 13; O2SAT 94
[2025-02-06 10:54] LABS: Cholesterol 143 mg/dL (< 200)
[2025-02-06 10:56] LABS: HDL Cholesterol 34 mg/dL (40-59); Triglycerides 489 mg/dL (< 150)
[2025-02-06] MEDS: IOHEXOL 300 MG/ML 100ML BOTTLE IJ ONE (11:10)
[2025-02-06 11:50] LABS: INR 1.03 (0.9-1.15); Partial Thromboplastin Time 28.9 SEC (24.5-34.5); Prothrombin Time 10.9 sec (9.3-11.8)
--- NOTE | 2025-02-06 11:54 | DVH ---
Exam: CT CT AB PEL WITH IV CON ONLY History: bladder problem with hx of hematuria COMPARISON: None Technique: Multidetector spiral CT of the abdomen and pelvis was performed from lung bases to pubic symphysis. Intravenous contrast was administered during this examination. Portal venous imaging was obtained. Axial, coronal and sagittal multiplanar reformats were performed by the technologist on a separate workstation. Radiation Dose : Abdomen/Pelvis: CTDIvol 14.1 mGy, DLP 842.49 mGy*cm. CONTRAST: Type of contrast: Omni 300 Contrast injected: 80 mL Findings: Lung Bases: No acute or significant lung base finding. Normal heart size. No pleural or pericardial effusion. Liver: The liver is normal in size. No focal lesions. Normal hepatic vascular enhancement. Gallbladder and biliary Tree: Gallbladder is surgically absent. Spleen: Unremarkable Pancreas: The pancreas is normal in appearance without focal lesions or abnormal enhancement. Adrenal Glands: Unremarkable Kidneys: Bilateral renal cysts. No hydronephrosis. Bladder: Unremarkable Bowel: The stomach is grossly normal in appearance. Small bowel and colon are normal in caliber and d istribution. The appendix is not visualized; however, no secondary findings of acute appendicitis christiano ntified. Ascites: Absent Lymphadenopathy: No mesenteric, retroperitoneal or periportal lymphadenopathy. Abdominal wall and Mesentery: Fat containing bilateral inguinal hernia. Vasculature: The visualized abdominal aorta is normal in size and caliber. Abdominal and pelvic vess els demonstrate normal enhancement. Pelvic Organs: Right ovarian cyst measuring up to 29 mm. Musculoskeletal: Grade 1 anterolisthesis of L4 on L5. Multilevel degenerative disease. IMPRESSION: 1. No acute abdominal or pelvic finding. Bilateral renal cysts. No hydronephrosis. Fat containing serina ateral inguinal hernias. Right ovarian cyst. Radiation optimization: All CT scans at this facility use at least one of these dose optimization carol hniques: Automated exposure control mA and/or kV adjustment per patient size (includes targeted exams where dose is matched to clinical indication) or iterative reconstruction. HS:Y
[2025-02-06 17:25] VITALS: BP 159/70; PULSE 68; RESP 16; TEMP 98.8; O2SAT 95
[2025-02-06 17:32] VITALS: BP 159/70; PULSE 68; RESP 16; TEMP 98.8; O2SAT 95
[2025-02-06] MEDS ORDERED: TRAZ-181 PO (18:04)
[2025-02-06] MEDS ORDERED: SITA100T7 PO (18:04)
[2025-02-06] MEDS ORDERED: LISI20TA56 PO (18:04)
[2025-02-06] MEDS ORDERED: LEVO175T4 PO (18:04)
[2025-02-06] MEDS ORDERED: ATOR20TA50 PO (18:04)
[2025-02-06 20:00] VITALS: PULSE 68; PULSE 69; RESP 17; O2SAT 95
[2025-02-06 21:00] VITALS: BP 148/65; PULSE 68; RESP 17; TEMP 98.1; O2SAT 95
[2025-02-06] MEDS: levoFLOXacin 500MG 100 ML IV SCH (21:21)
[2025-02-07] VITALS (10 sets, daily range): BP systolic 133–163; BP diastolic 66–92; PULSE 18–75; RESP 16–18; TEMP 97.9–98.5; O2SAT 97–99
[2025-02-07 08:04] LABS: Basophils # (auto) 0 10 ^3/uL (0-0.2); Basophils % (auto) 0.2 % (0.0-2.0); Eosinophils # (auto) 0.2 10 ^3/uL (0-0.8); Eosinophils % (auto) 3.5 % (0.0-7.0); Hemoglobin 12.7 g/dL (12.2-16.2); Lymphocytes # (auto) 2.7 10 ^3/uL (0.4-5.4); Lymphocytes % (auto) 37.7 % (10.0-50.0); Mean Corpuscular Hemoglobin 27.8 pg (28.0-32.0); Mean Corpuscular Hgb Conc. 35.3 g/dL (32.0-36.0); Mean Corpuscular Volume 78.7 fL (80.0-100.0); Monocytes # (auto) 0.4 10 ^3/uL (0-1.3); Monocytes % (auto) 5.5 % (0.0-12.0); Neutrophils # (auto) 3.8 10 ^3/uL (1.6-8.6); Neutrophils % (auto) 53.1 % (37.0-80.0); Nucleated Red Blood Cells % 0.3 %; Platelet Count (auto) 226 10^3/uL (140-450); Red Blood Cells 4.58 10^6/uL (4.0-5.20); Red Cell Distribution Width 14.3 % (11.8-14.3); White Blood Cell 7.2 10^3/uL (4.4-10.8)
[2025-02-07 08:09] LABS: Calcium 9.4 mg/dL (8.7-10.4); Chloride 105 mmol/L (98-107); Potassium 3.9 mmol/L (3.5-5.1); Sodium 140 mmol/L (136-145)
[2025-02-07 08:10] LABS: Anion Gap 8 (5-15); Carbon Dioxide 27 mmol/L (20-31)
[2025-02-07 08:15] LABS: BUN/Creatinine Ratio 15.5 (10.0-20.0); Blood Urea Nitrogen 9 mg/dL (9-23)
[2025-02-07 08:16] LABS: Glucose 172 mg/dL (74-106)
--- NOTE | 2025-02-07 14:16 | DVHPN2 ---
Progress Note - Dictate Date Seen: February 07, 2025 Medical Necessity Reason Pt with a Central, PICC or Fol: No Subjective She is clinically stable. Dizziness is resolved. Had a small bowel movement but complains of constipation. Scheduled to undergo bladder cystoscopy with a apparently biopsy by Urology tomorrow. No complaints of chest pain dizziness or lightheadedness. No shortness a breath. Other review of systems reviewed normal. vital signs Vital Sign Date Time Temp Pulse Resp B/P (MAP) Pulse Ox O2 Delivery O2 Flow Rate FiO2 02/07/25 13:10 75 142/73 (96) 02/07/25 13:00 98.5 16 97 98.5 02/07/25 08:15 Room Air* 0 21 Total Intake and Output 02/06/25 02/06/25 02/07/25 15:00 23:00 07:00 Intake Total 175 ml 1100 ml Balance 175 ml 1100 ml medications Current Medications Medications Dose Ordered Sig/Tim Route Start Time Stop Time Status Last Admin Dose Admin Sodium Chloride 1,000 ml @ 75 mls/hr [id number] IV 02/06/25 01:45 02/07/25 06:17 75 MLS/HR Acetaminophen 650 mg Q6HP PRN PO 02/06/25 01:45 Acetaminophen/ Hydrocodone Bitart 1 tab Q4HP PRN PO 02/06/25 01:45 Ondansetron HCl 4 mg Q4HP PRN IV 02/06/25 01:45 Nitroglycerin 0.4 mg Q5MINP PRN SL 02/06/25 01:45 Morphine Sulfate 2 mg Q30M PRN IV 02/06/25 01:45 Diagnostic Test (Pha) 1 strip ACHS 02/06/25 07:00 02/07/25 11:30 1 STRIP Insulin Human Regular HS SC 02/06/25 22:00 02/06/25 21:37 4 UNITS Insulin Human Regular AC SC 02/06/25 07:00 02/07/25 11:30 9 UNITS Dextrose 50 ml UD PRN IV 02/06/25 01:45 Meclizine HCl 25 mg TIDP PRN PO 02/06/25 01:45 Levofloxacin/ Dextrose 100 ml @ 100 mls/hr HS IV 02/06/25 22:00 02/06/25 21:21 100 MLS/HR objective Comfortable in bed without distress. HEENT neck supple no JVD. Heart regular rate and rhythm S1-S2. Lungs fair air movement without rales wheezes. Abdomen soft nontender positive bowel sounds. Extremities no edema positive pulses. Neurologically no deficits. laboratory and microbiology Laboratory Tests 02/07/25 06:06 Test 02/07/25 06:06 Range/Units Serum Glucose 172 H 74-106 mg/dL Assessment/Plan Patient is medically stable. She is at average risk for perioperative and postop complications. Discussed this with the patient. She does not have any acute cardiac or pulmonary issues at present. We will order a 2D echocardiogram and a preop cardiac evaluation today. NPO after midnight. Proceed with a urological procedure as scheduled for tomorrow. I will give her laxatives for constipation. Otherwise continue rest of supportive care and treatment and further clinical management per clinical course and postop recovery. Discussed with the patient as well as the nurse regarding care plan. Problems(with codes): (1) Hyperglycemia (2) Dizziness (3) UTI (urinary tract infection) Plan discussed with: Patient, Other RACHEL HAZEL MD February 07, 2025 14:16
[2025-02-07] MEDS: LACTULOSE 20Gm/30ML SOLN PO ONE (15:05)
--- NOTE | 2025-02-07 15:30 | DVH ---
EXAM: XY CHEST PORTABLE TECHNIQUE: Single frontal chest radiograph CLINICAL HISTORY: preop eval COMPARISON: XY CHEST PORTABLE on DOS: 09/15/24 Findings/Impression: Frontal chest radiograph demonstrates no acute osseous or superficial soft tissue abnormalities. The trachea is midline. The cardiac silhouette and mediastinum are within normal limits. No pneumothorax, pleural effusions, or consolidations.
--- NOTE | 2025-02-07 15:47 | DVHSR ---
APPROVED REPORT EXAM: Two-dimensional and M-mode echocardiogram with Doppler, color Doppler and Bubble Study. Blood Pressure: 160/71 mmHg INDICATION Hypertension RISK FACTORS Height: 5'5", Weight: 163 DIMENSIONS LVDd4.9 (3.8-5.7cm)LA (2D)3.7 (1.9-4.0cm)Aortic Root2.7 (2.0-3.7cm) LVDs2.9 (2.5-4.0cm)LA (MM) (1.9-4.0cm)Aortic Cusp Exc1.9 (1.5-2.0cm) EF (%) 70.0 (55-70%)Rt. Atrium3.7 (1.9-4.0cm)Asc. Aorta2.9 cm IVSd0.8 (0.7-1.1cm)RV (D)3.3 (1.8-2.4cm) PWd0.8 (0.7-1.1cm) Mitral Valve MitralMitral Stenosis E wave0.90m/sMV Mean GR.mmHg A wave0.96m/sMV Peak GR.mmHg E/A ratio0.92D MVAcm2 DECEL [id number] 1/2 Timems Aortic Valve Aortic ValveAortic Stenosis V11.06m/Jameel Mean GR.4mmHg V21.44m/Jameel Peak GR.8mmHg LVOT Diameter1.9 (1.8-2.4cm)Doppler AVA2.09cm2 Pulmonic Valve V20.84m/s Tricuspid Valve TR Velocity2.29m/s [id number] Other Information Quality : Technically LimitedRhythm : Technically limited study due to body habitus. Conclusion Technically good study. Sinus rhythm. Normal chamber sizes. Valves are normal. EF of 60% with normal RV function. Dopplers unremarkable. No pericardial effusion masses or vegetations.
--- NOTE | 2025-02-07 16:21 | DVHINCON2 ---
Date Seen: February 07, [address] Resendez Reason for Consultation Cardiac clearance History of Present Illness History of recurrent UTIs. Patient require cystoscopy. No cardiac anomalies noted. Past Medical History History of recurrent UTIs. Hypertension diabetes. No history of angina or congestive heart failure. Past Surgical History Noncontributory. Family History: Diabetes mellitus G8 MOTHER G8 FATHER Hypertension G8 MOTHER G8 FATHER Allergies: Coded Allergies: Azithromycin (Verified Allergy, Unknown, 09/15/24) Cyclobenzaprine (Verified Allergy, Unknown, 02/05/25) Nitrofurantoin (Verified Allergy, Unknown, 02/05/25) Penicillins (Verified Allergy, Unknown, 02/05/25) Sulfa Antibiotics (Verified Allergy, Unknown, 02/05/25) Home Meds Active Scripts Ondansetron Odt 4MG Tab (ZOFRAN PO) 4 Mg Tb, 4 MG SL QIDPRN, #20 TAB ODT TAB-DISSOLVE IN MOUTH, THEN SWALLOW Prov:BUCK MARTI MD 09/16/24 Levofloxacin Hemihydrate (LEVAQUIN 500 MG) 500 Mg Tab, 500 MG PO DAILY for 7 Days, #7 TAB Prov:BUCK MARTI MD 09/16/24 Reported Medications Sitagliptin Phosphate (Januvia) 100 Mg Tab, 1 TAB PO DAILY, #30 TAB 5 Refills 02/06/25 Atorvastatin Calcium (ATORVASTATIN CALCIUM) 20 Mg Tab, 1 TAB PO DAILY, #30 TAB 5 Refills 02/06/25 Lisinopril (Lisinopril) 20 Mg Tab, 1 TAB PO DAILY, #30 TAB 5 Refills 02/06/25 Trazodone HCl (Trazodone Hydrochloride) 50 Mg Tab, 50 MG PO HS, TAB 02/06/25 Levothyroxine Sodium (Levothyroxine Sodium) 175 Mcg Tab, 175 MCG PO QAM for 30 Days, MCG 02/06/25 Current Medications Current Medications Medications (Trade) Dose Ordered Sig/Tim Route PRN Reason Start Time Stop Time Status Last Admin Insulin Human Regular (InsuLIN R) HS SC 02/06/25 22:00 02/06/25 21:37 Levofloxacin/ Dextrose 100 ml @ 100 mls/hr HS IV 02/06/25 22:00 02/06/25 21:21 Review of Systems No constitutional symptoms of fevers chills or weight loss. Cardiac and respiratory negative. GI negative. as noted above with a history of recurrent UTIs requiring cystoscopy. Musculoskeletal hematologic and oncologic negative. Endocrine noted for history of diabetes mellitus. Vital Signs Vital Signs Date Time Temp Pulse Resp B/P (MAP) Pulse Ox O2 Delivery O2 Flow Rate FiO2 02/07/25 13:10 75 142/73 (96) 02/07/25 13:00 98.5 16 97 98.5 02/07/25 08:15 Room Air* 0 21 Physical Exam Awake alert oriented in no acute distress. HEENT examination is unremarkable. Lungs are clear. Heart exam is regular. Extremities are well perfused. Neurologically intact. Integumentary is normal. Labs/Diagnostic Data Labs Test 02/07/25 11:59 02/07/25 06:06 02/06/25 11:05 02/06/25 05:13 Range/Units POC Glucose 271 H 70-106 mg/dl White Blood Count 7.2 4.4-10.8 10^3/uL Red Blood Count 4.58 4.0-5.20 10^6/uL Hemoglobin 12.7 12.2-16.2 g/dL Hematocrit 36.0 36.0-46.0 % Mean Corpuscular Volume 78.7 L 80.0-100.0 fL Mean Corpuscular Hemoglobin 27.8 L 28.0-32.0 pg Mean Corpuscular Hemoglobin Concent 35.3 32.0-36.0 g/dL Red Cell Distribution Width 14.3 11.8-14.3 % Platelet Count 226 140-450 10^3/uL Mean Platelet Volume 7.2 6.9-10.8 fL Neutrophils (%) (Auto) 53.1 37.0-80.0 % Lymphocytes (%) (Auto) 37.7 10.0-50.0 % Monocytes (%) (Auto) 5.5 0.0-12.0 % Eosinophils (%) (Auto) 3.5 0.0-7.0 % Basophils (%) (Auto) 0.2 0.0-2.0 % Neutrophils # (Auto) 3.8 1.6-8.6 10 ^3/uL Lymphocytes # (Auto) 2.7 0.4-5.4 10 ^3/uL Monocytes # (Auto) 0.4 0-1.3 10 ^3/uL Eosinophils # (Auto) 0.2 0-0.8 10 ^3/uL Basophils # (Auto) 0 0-0.2 10 ^3/uL Nucleated Red Blood Cells 0.3 % Sodium Level 140 136-145 mmol/L Potassium Level 3.9 3.5-5.1 mmol/L Chloride Level 105 98-107 mmol/L Carbon Dioxide Level 27 20-31 mmol/L Anion Gap 8 5-15 Blood Urea Nitrogen 9 9-23 mg/dL Creatinine 0.58 0.550-1.02 mg/dL Glomerular Filtration Rate Calc 99 >90 mL/min BUN/Creatinine Ratio 15.5 10.0-20.0 Serum Glucose 172 H 74-106 mg/dL Calcium Level 9.4 8.7-10.4 mg/dL Prothrombin Time 10.9 9.3-11.8 sec Prothrombin Time INR 1.03 0.9-1.15 Activated Partial Thromboplast Time 28.9 24.5-34.5 SEC Hemoglobin A1c 9.8 H <5.7 % A1C Triglycerides Level 489 H < 150 mg/dL Cholesterol Level 143 < 200 mg/dL LDL Cholesterol < 100 mg/dL HDL Cholesterol 34 L 40-59 mg/dL Test 02/05/25 22:06 02/05/25 21:06 02/05/25 00:00 Range/Units Troponin I High Sensitivity 3 L </=34 ng/L Magnesium Level 1.4 L 1.6-2.6 mg/dL Total Bilirubin 0.7 0.2-1.0 mg/dL Aspartate Amino Transferase (AST) 23 13-40 U/L Alanine Aminotransferase (ALT) 37 7-40 U/L Alkaline Phosphatase 131 H 46-116 U/L B-Type Natriuretic Peptide 12.44 0-100 pg/mL Total Protein 6.8 5.7-8.2 g/dL Albumin 4.1 3.2-4.8 g/dL Urine Color Light-yellow Yellow Urine Clarity Clear Clear Urine pH 7.0 5.0-9.0 Urine Specific [place] 1.025 1.001-1.035 Urine Protein Negative Negative Urine Ketones Negative Negative Urine Blood Negative Negative /uL Urine Nitrite 2+ H Negative Urine Bilirubin Negative Negative Urine Urobilinogen Normal Negative mg/dL Urine Leukocyte Esterase 3+ Negative /uL Urine RBC 3 0 - 4 /hpf Urine Microscopic WBC 64 H 0-5 /HPF Urine Squamous Epithelial Cells Few <5 /hpf Urine Bacteria Few H None Seen /hpf Urine Mucus Few None Seen Urine Glucose 4+ H Normal mg/dL Microbiology Date/Time Source Procedure Growth Status 02/05/25 00:00 Urine - Midstream Clean Catch Urine Culture - Preliminary Resulted EKG shows sinus rhythm nonspecific changes. Echocardiogram shows normal left ventricular function. EF of 60%. Assessment Recurrent UTIs. Rule out bladder anomaly. Rule out structural defects. Associated history of diabetes and hypertension that has been stable. Asymptomatic cardiac status. No chest pain or congestive heart failure with an excellent functional capacity. Plan/Recommendation Given her asymptomatic condition of the recommend proceeding with urologic evaluation and cystoscopy if need be. No further cardiac testing needed at this time. Plan discussed with: Patient, Daughter NYHA Physical activity limitations: Class1(None)absent sob, Date of Service: February 07, 2025 Billing Provider: TUNG MULTANI Sr., MD Cardiology Common Codes: 74058-QRSRIAP INP/OBS CARE (High) TUNG MULTANI Sr., MD February 07, 2025 16:20
--- NOTE | 2025-02-07 19:22 | DVHINCON2 ---
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 She has had multiple Urinary tract infections in the recent past. She is here for discussion of treatment options. CT A/P NC was negative for findings. Multiple cultures postive past few months. ESBL E coli. Patient underwent cystoscopy with suspicious lesion found and scheduled for cystoscopy with biopsy on 02/07/25. But, patient is admitted to [facility] for dizziness. She has been cleared by her admitting physician to proceed with surgery. Urinary Incontinence Q: Assessment Assessment: Absent. Q: Plan of care documented Plan of care documented: No, reason not specified. Past Medical History Type 2 diabetes mellitus with other diabetic kidney complication Hypertensive heart disease without heart failure Allergies/Intolerance: Sulfa Antibiotics Erythromycin Macrobid Past Surgical History neck surgery gallbladder removal Family History: Diabetes mellitus G8 MOTHER G8 FATHER Hypertension G8 MOTHER G8 FATHER Allergies: Coded Allergies: Azithromycin (Verified Allergy, Unknown, 09/15/24) Cyclobenzaprine (Verified Allergy, Unknown, 02/05/25) Nitrofurantoin (Verified Allergy, Unknown, 02/05/25) Penicillins (Verified Allergy, Unknown, 02/05/25) Sulfa Antibiotics (Verified Allergy, Unknown, 02/05/25) Home Meds Active Scripts Ondansetron Odt 4MG Tab (ZOFRAN PO) 4 Mg Tb, 4 MG SL QIDPRN, #20 TAB ODT TAB-DISSOLVE IN MOUTH, THEN SWALLOW Prov:BUCK MARTI MD 09/16/24 Levofloxacin Hemihydrate (LEVAQUIN 500 MG) 500 Mg Tab, 500 MG PO DAILY for 7 Days, #7 TAB Prov:BUCK MARTI MD 09/16/24 Reported Medications Sitagliptin Phosphate (Januvia) 100 Mg Tab, 1 TAB PO DAILY, #30 TAB 5 Refills 02/06/25 Atorvastatin Calcium (ATORVASTATIN CALCIUM) 20 Mg Tab, 1 TAB PO DAILY, #30 TAB 5 Refills 02/06/25 Lisinopril (Lisinopril) 20 Mg Tab, 1 TAB PO DAILY, #30 TAB 5 Refills 02/06/25 Trazodone HCl (Trazodone Hydrochloride) 50 Mg Tab, 50 MG PO HS, TAB 02/06/25 Levothyroxine Sodium (Levothyroxine Sodium) 175 Mcg Tab, 175 MCG PO QAM for 30 Days, MCG 02/06/25 Current Medications Current Medications Medications (Trade) Dose Ordered Sig/Tim Route PRN Reason Start Time Stop Time Status Last Admin Insulin Human Regular (InsuLIN R) HS SC 02/06/25 22:00 02/06/25 21:37 Levofloxacin/ Dextrose 100 ml @ 100 mls/hr HS IV 02/06/25 22:00 02/06/25 21:21 Review of Systems ROS: General/Constitutional Chills denies. Fatigue denies. Fever denies. Weight loss denies. Ophthalmologic Blurred vision denies. Discharge denies. Itching and redness denies. Pain denies. ENT Decreased hearing denies. Respiratory Cough denies. Shortness of breath at rest denies. Shortness of breath with exertion denies. Wheezing denies. Cardiovascular Chest pain at rest denies. Chest pain with exertion denies. Palpitations denies. Gastrointestinal Abdominal pain denies. Diarrhea denies. Nausea denies. Hematology Dizziness denies. Prolonged bleeding denies. Weight loss denies. Urinary Blood in urine denies. Frequent urination admits. Painful urination denies. Musculoskeletal Painful joints denies. Swollen joints denies. Peripheral Vascular Cold extremities denies. Pain/cramping in legs after exertion denies. Skin Rash denies. Skin lesion(s) denies. Skin oozing denies. Neurologic Gait abnormality denies. Tingling/Numbness denies. Vital Signs Vital Signs Date Time Temp Pulse Resp B/P (MAP) Pulse Ox O2 Delivery O2 Flow Rate FiO2 02/07/25 17:00 97.9 54 16 150/66 (94) 97 97.9 02/07/25 08:15 Room Air* 0 21 Physical Exam * General Examination GENERAL APPEARANCE: pleasant, in no acute distress, well nourished. HEAD: normocephalic, atraumatic. EYES* pupils equal, round, reactive to light and accommodation, sclera non-icteric. EARS: normal. ORAL CAVITY: mucosa moist. NECK/THYROID: neck supple, full range of motion, thyroid normal. LYMPH NODES: no lymphadenopathy. SKIN: warm and dry, no suspicious lesions. HEART: regular rate and rhythm, no murmurs, rubs, gallops. LUNGS: clear to auscultation bilaterally. ABDOMEN: soft, nontender, nondistended, bowel sounds present, normal; PELVIC: deferred until time of cystoscopy. EXTREMITIES: no edema. NEUROLOGIC: alert and oriented, normal exam. PVR 0ML. Labs/Diagnostic Data Labs Test 02/07/25 17:52 02/07/25 06:06 02/06/25 11:05 02/06/25 05:13 Range/Units POC Glucose 187 H 70-106 mg/dl White Blood Count 7.2 4.4-10.8 10^3/uL Red Blood Count 4.58 4.0-5.20 10^6/uL Hemoglobin 12.7 12.2-16.2 g/dL Hematocrit 36.0 36.0-46.0 % Mean Corpuscular Volume 78.7 L 80.0-100.0 fL Mean Corpuscular Hemoglobin 27.8 L 28.0-32.0 pg Mean Corpuscular Hemoglobin Concent 35.3 32.0-36.0 g/dL Red Cell Distribution Width 14.3 11.8-14.3 % Platelet Count 226 140-450 10^3/uL Mean Platelet Volume 7.2 6.9-10.8 fL Neutrophils (%) (Auto) 53.1 37.0-80.0 % Lymphocytes (%) (Auto) 37.7 10.0-50.0 % Monocytes (%) (Auto) 5.5 0.0-12.0 % Eosinophils (%) (Auto) 3.5 0.0-7.0 % Basophils (%) (Auto) 0.2 0.0-2.0 % Neutrophils # (Auto) 3.8 1.6-8.6 10 ^3/uL Lymphocytes # (Auto) 2.7 0.4-5.4 10 ^3/uL Monocytes # (Auto) 0.4 0-1.3 10 ^3/uL Eosinophils # (Auto) 0.2 0-0.8 10 ^3/uL Basophils # (Auto) 0 0-0.2 10 ^3/uL Nucleated Red Blood Cells 0.3 % Sodium Level 140 136-145 mmol/L Potassium Level 3.9 3.5-5.1 mmol/L Chloride Level 105 98-107 mmol/L Carbon Dioxide Level 27 20-31 mmol/L Anion Gap 8 5-15 Blood Urea Nitrogen 9 9-23 mg/dL Creatinine 0.58 0.550-1.02 mg/dL Glomerular Filtration Rate Calc 99 >90 mL/min BUN/Creatinine Ratio 15.5 10.0-20.0 Serum Glucose 172 H 74-106 mg/dL Calcium Level 9.4 8.7-10.4 mg/dL Prothrombin Time 10.9 9.3-11.8 sec Prothrombin Time INR 1.03 0.9-1.15 Activated Partial Thromboplast Time 28.9 24.5-34.5 SEC Hemoglobin A1c 9.8 H <5.7 % A1C Triglycerides Level 489 H < 150 mg/dL Cholesterol Level 143 < 200 mg/dL LDL Cholesterol < 100 mg/dL HDL Cholesterol 34 L 40-59 mg/dL Test 02/05/25 22:06 02/05/25 21:06 02/05/25 00:00 Range/Units Troponin I High Sensitivity 3 L </=34 ng/L Magnesium Level 1.4 L 1.6-2.6 mg/dL Total Bilirubin 0.7 0.2-1.0 mg/dL Aspartate Amino Transferase (AST) 23 13-40 U/L Alanine Aminotransferase (ALT) 37 7-40 U/L Alkaline Phosphatase 131 H 46-116 U/L B-Type Natriuretic Peptide 12.44 0-100 pg/mL Total Protein 6.8 5.7-8.2 g/dL Albumin 4.1 3.2-4.8 g/dL Urine Color Light-yellow Yellow Urine Clarity Clear Clear Urine pH 7.0 5.0-9.0 Urine Specific [place] 1.025 1.001-1.035 Urine Protein Negative Negative Urine Ketones Negative Negative Urine Blood Negative Negative /uL Urine Nitrite 2+ H Negative Urine Bilirubin Negative Negative Urine Urobilinogen Normal Negative mg/dL Urine Leukocyte Esterase 3+ Negative /uL Urine RBC 3 0 - 4 /hpf Urine Microscopic WBC 64 H 0-5 /HPF Urine Squamous Epithelial Cells Few <5 /hpf Urine Bacteria Few H None Seen /hpf Urine Mucus Few None Seen Urine Glucose 4+ H Normal mg/dL Microbiology Date/Time Source Procedure Growth Status 02/05/25 00:00 Urine - Midstream Clean Catch Urine Culture - Preliminary Resulted Assessment Urethral syndrome, 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
[2025-02-08] VITALS (9 sets, daily range): BP systolic 144–158; BP diastolic 62–72; PULSE 62–89; RESP 13–17; TEMP 97.5–98.7; O2SAT 97–100
[2025-02-08 06:59] LABS: Basophils # (auto) 0 10 ^3/uL (0-0.2); Basophils % (auto) 0.2 % (0.0-2.0); Eosinophils # (auto) 0.2 10 ^3/uL (0-0.8); Eosinophils % (auto) 3.4 % (0.0-7.0); Hematocrit 36.1 % (36.0-46.0); Hemoglobin 12.5 g/dL (12.2-16.2); Lymphocytes # (auto) 2.3 10 ^3/uL (0.4-5.4); Lymphocytes % (auto) 30.7 % (10.0-50.0); Mean Corpuscular Hemoglobin 27.2 pg (28.0-32.0); Mean Corpuscular Hgb Conc. 34.8 g/dL (32.0-36.0); Mean Corpuscular Volume 78.4 fL (80.0-100.0); Monocytes # (auto) 0.4 10 ^3/uL (0-1.3); Monocytes % (auto) 5.4 % (0.0-12.0); Neutrophils # (auto) 4.5 10 ^3/uL (1.6-8.6); Neutrophils % (auto) 60.3 % (37.0-80.0); Nucleated Red Blood Cells % 0.1 %; Platelet Count (auto) 221 10^3/uL (140-450); Red Cell Distribution Width 14.4 % (11.8-14.3); White Blood Cell 7.4 10^3/uL (4.4-10.8)
[2025-02-08 07:10] LABS: Anion Gap 9 (5-15); Carbon Dioxide 26 mmol/L (20-31); Chloride 104 mmol/L (98-107); Potassium 3.9 mmol/L (3.5-5.1); Sodium 139 mmol/L (136-145)
[2025-02-08 07:12] LABS: Calcium 9.6 mg/dL (8.7-10.4)
[2025-02-08 07:17] LABS: Blood Urea Nitrogen 11 mg/dL (9-23)
[2025-02-08 07:19] LABS: Glucose 217 mg/dL (74-106)
[2025-02-08] MEDS ORDERED: fentaNYL CITRATE 100 MCG/2 ML VL ONE (07:33)
[2025-02-08] MEDS ORDERED: MIDAZOLAM HCL 2MG/2ML 2ml VIAL (1mg/ml) ONE (07:33)
[2025-02-08] MEDS ORDERED: ePHEDrine SULFATE 50 MG/ML AMP ONE (07:34)
[2025-02-08] MEDS ORDERED: LIDOCAINE 2% (LOCAL ANESTH.) PF 5ml SDV ONE (07:34)
[2025-02-08] MEDS ORDERED: KETOROLAC TROMETH 30 MG/ML 1ML VIAL ONE (07:34)
[2025-02-08] MEDS ORDERED: GLYCOPYRROLATE 0.2 MG/ML 1ML VIAL ONE (07:34)
[2025-02-08] MEDS ORDERED: PROPOFOL 10 MG/ML 20 ML IV ONE (07:34)
[2025-02-08] MEDS ORDERED: ONDANSETRON HCL 4 MG/2 ML VIAL ONE (07:34)
--- NOTE | 2025-02-08 09:29 | DVHNC2 ---
Procedure - OPERATIVE REPORT Pre-op. Diagnosis: Bladder lesion Recurrent UTIs Post-op. Diagnosis: Same as pre-op diagnosis Operation: Cystoscopy with biopsy and fulguration of minor lesions Anesthesia: General Indications: Patient has recurrent UTIs and irritative voiding symptoms. Recent cystoscopy showed suspicious lesion. Indications, risks, complications, alternatives and benefits of cystoscopy with biopsy of bladder and other indicated procedures are discussed with patient. All questions were encouraged and answered. Details of Procedure: Patient is taken to Operating suite and given appropriate anesthesia. After prepping and draping the patient in the lithotomy position, a 21F rigid cystoscope is utilized to inspect the bladder. Biopsy of the lesion in question is taken and area is fulgurated for hemostasis. Patient tolerated the procedure well. Specimens: Posterior wall cystic lesion Complications: None Findings: DISPOSITION: Await for the pathology report. PARKER KOHLER MD February 08, 2025 09:29
[2025-02-08] MEDS ORDERED: HYDROmorphone HCL 2 MG/ML VL/or syr IV PRN (09:30)
--- NOTE | 2025-02-08 14:52 | DVHDS2 ---
Discharge Summary Date of Admission February 06, 2025 at 01:35 Date of Discharge: February 08, 2025 Admitting Diagnosis 69-year-old female with past history of DM, hypertension Presents with complaints of Dizziness and generalized weakness times one day.Patient endorses having difficulty trying to stand up. States she has been dealing with UTI for the past four months. Is scheduled for bladder biopsy with Dr. Redman on . At this time patient denies any fevers, chills, headaches, falls, shortness of breath, chest pain,Nausea, vomiting. Labs/Diagnostic Data: Laboratory Results Test 02/08/25 12:17 02/08/25 06:39 02/06/25 11:05 02/06/25 05:13 POC Glucose 220 mg/dl (70-106) White Blood Count 7.4 10^3/uL (4.4-10.8) Red Blood Count 4.60 10^6/uL (4.0-5.20) Hemoglobin 12.5 g/dL (12.2-16.2) Hematocrit 36.1 % (36.0-46.0) Mean Corpuscular Volume 78.4 fL (80.0-100.0) Mean Corpuscular Hemoglobin 27.2 pg (28.0-32.0) Mean Corpuscular Hemoglobin Concent 34.8 g/dL (32.0-36.0) Red Cell Distribution Width 14.4 % (11.8-14.3) Platelet Count 221 10^3/uL (140-450) Mean Platelet Volume 6.9 fL (6.9-10.8) Neutrophils (%) (Auto) 60.3 % (37.0-80.0) Lymphocytes (%) (Auto) 30.7 % (10.0-50.0) Monocytes (%) (Auto) 5.4 % (0.0-12.0) Eosinophils (%) (Auto) 3.4 % (0.0-7.0) Basophils (%) (Auto) 0.2 % (0.0-2.0) Neutrophils # (Auto) 4.5 10 ^3/uL (1.6-8.6) Lymphocytes # (Auto) 2.3 10 ^3/uL (0.4-5.4) Monocytes # (Auto) 0.4 10 ^3/uL (0-1.3) Eosinophils # (Auto) 0.2 10 ^3/uL (0-0.8) Basophils # (Auto) 0 10 ^3/uL (0-0.2) Nucleated Red Blood Cells 0.1 % Sodium Level 139 mmol/L (136-145) Potassium Level 3.9 mmol/L (3.5-5.1) Chloride Level 104 mmol/L (98-107) Carbon Dioxide Level 26 mmol/L (20-31) Anion Gap 9 (5-15) Blood Urea Nitrogen 11 mg/dL (9-23) Creatinine 0.55 mg/dL (0.550-1.02) Glomerular Filtration Rate Calc 100 mL/min (>90) BUN/Creatinine Ratio 20.0 (10.0-20.0) Serum Glucose 217 mg/dL (74-106) Calcium Level 9.6 mg/dL (8.7-10.4) Prothrombin Time 10.9 sec (9.3-11.8) Prothrombin Time INR 1.03 (0.9-1.15) Activated Partial Thromboplast Time 28.9 SEC (24.5-34.5) Hemoglobin A1c 9.8 % A1C (<5.7) Triglycerides Level 489 mg/dL (< 150) Cholesterol Level 143 mg/dL (< 200) LDL Cholesterol mg/dL (< 100) HDL Cholesterol 34 mg/dL (40-59) Test 02/05/25 22:06 02/05/25 21:06 02/05/25 00:00 Troponin I High Sensitivity 3 ng/L (</=34) Magnesium Level 1.4 mg/dL (1.6-2.6) Total Bilirubin 0.7 mg/dL (0.2-1.0) Aspartate Amino Transferase (AST) 23 U/L (13-40) Alanine Aminotransferase (ALT) 37 U/L (7-40) Alkaline Phosphatase 131 U/L (46-116) B-Type Natriuretic Peptide 12.44 pg/mL (0-100) Total Protein 6.8 g/dL (5.7-8.2) Albumin 4.1 g/dL (3.2-4.8) Urine Color Light-yellow (Yellow) Urine Clarity Clear (Clear) Urine pH 7.0 (5.0-9.0) Urine Specific [place] 1.025 (1.001-1.035) Urine Protein Negative (Negative) Urine Ketones Negative (Negative) Urine Blood Negative /uL (Negative) Urine Nitrite 2+ (Negative) Urine Bilirubin Negative (Negative) Urine Urobilinogen Normal mg/dL (Negative) Urine Leukocyte Esterase 3+ /uL (Negative) Urine RBC 3 /hpf (0 - 4) Urine Microscopic WBC 64 /HPF (0-5) Urine Squamous Epithelial Cells Few /hpf (<5) Urine Bacteria Few /hpf (None Seen) Urine Mucus Few (None Seen) Urine Glucose 4+ mg/dL (Normal) Other Laboratory Tests 02/08/25 06:39 Brief Hx & Hospital Course: 69-year-old female with past history of DM, hypertension Presents with complaints of Dizziness and generalized weakness times one day.Patient endorses having difficulty trying to stand up. States she has been dealing with UTI for the past four months. Is scheduled for bladder biopsy with Dr. Redman on . At this time patient denies any fevers, chills, headaches, falls, shortness of breath, chest pain,Nausea, vomiting. She is admitted and evaluated by her urologist. Patient received empiric IV fluids antibiotics while in the hospital. She underwent successful bladder biopsy procedure per Urology recommendations. Postop her hospital clinical course is uneventful/unremarkable. Patient is clinically stable. Therefore it is felt she could be safely discharged home with close outpatient follow up with Dr. Cote her urologist for bladder biopsy results and further evaluation and management as deemed appropriate. Patient has verbalized understanding of this, verbalized understanding over hospital diagnosis, treatment she received, discharge medications, discharge instructions and agree with the follow up plan of care as outlined. Consults/Reason for consult CONSULTATION REPORT . ................................................................................ ............................................................................... 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 She has had multiple Urinary tract infections in the recent past. She is here for discussion of treatment options. CT A/P NC was negative for findings. Multiple cultures postive past few months. ESBL E coli. Patient underwent cystoscopy with suspicious lesion found and scheduled for cystoscopy with biopsy on 02/07/25. But, patient is admitted to [facility] for dizziness. She has been cleared by her admitting physician to proceed with surgery. 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 Blood Pressure: 160/71 mmHg INDICATION Hypertension RISK FACTORS Height: 5'5", Weight: 163 DIMENSIONS LVDd 4.9 (3.8-5.7cm) LA (2D) 3.7 (1.9-4.0cm) Aortic Root 2.7 (2.0- 3.7cm) LVDs 2.9 (2.5-4.0cm) LA (MM) (1.9-4.0cm) Aortic Cusp Exc 1.9 (1.5- 2.0cm) EF (%) 70.0 (55-70%) Rt. Atrium 3.7 (1.9-4.0cm) Asc. Aorta 2.9 cm IVSd 0.8 (0.7-1.1cm) RV (D) 3.3 (1.8-2.4cm) PWd 0.8 (0.7-1.1cm) Mitral Valve Mitral Mitral Stenosis E wave 0.90m/s MV Mean GR. mmHg A wave 0.96m/s MV Peak GR. mmHg E/A ratio 0.9 2D MVA cm2 DECEL Time 149ms PRESS 1/2 Time ms Aortic Valve Aortic Valve Aortic Stenosis V1 1.06m/s AO Mean GR. 4mmHg V2 1.44m/s AO Peak GR. 8mmHg LVOT Diameter 1.9 (1.8-2.4cm) Doppler ALVIN 2.09cm2 Pulmonic Valve V2 0.84m/s Tricuspid Valve TR Velocity 2.29m/s RVSP 24mmHg Other Information Quality : Technically Limited Rhythm : Technically limited study due to body habitus. Conclusion Technically good study. Sinus rhythm. Normal chamber sizes. Valves are normal. EF of 60% with normal RV function. Dopplers unremarkable. No pericardial effusion masses or vegetations. SIGNED BY: TUNG MULTANI Sr., MD SIGNED DATE/TIME: 02/07/25 6551 Operations or Procedures Procedure - OPERATIVE REPORT Pre-op. Diagnosis: Bladder lesion Recurrent UTIs Post-op. Diagnosis: Same as pre-op diagnosis Operation: Cystoscopy with biopsy and fulguration of minor lesions Anesthesia: General Indications: Patient has recurrent UTIs and irritative voiding symptoms. Recent cystoscopy showed suspicious lesion. Indications, risks, complications, alternatives and benefits of cystoscopy with biopsy of bladder and other indicated procedures are discussed with patient. All questions were encouraged and answered. Details of Procedure: Patient is taken to Operating suite and given appropriate anesthesia. After prepping and draping the patient in the lithotomy position, a 21F rigid cystoscope is utilized to inspect the bladder. Biopsy of the lesion in question is taken and area is fulgurated for hemostasis. Patient tolerated the procedure well. Specimens: Posterior wall cystic lesion Complications: None Findings: DISPOSITION: Await for the pathology report. 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) Urinary tract infection, site not specified - N39.0 Feeling of incomplete bladder emptying - R39.14 Acute cystitis without hematuria - N30.00 Discharge Disposition: Home Discharge Instruct/Medications Diet: Consistent carbohydrate, Cardiac 2g Na,low cholest Activity: No Restrictions, As Tolerated Follow Up/Referral: Dr.Samuel Redman urologist in 10-14 days for bladder biopsy results and management of UTIs Medications: home meds Continued Medications: Atorvastatin Calcium (Atorvastatin Calcium) 20 Mg Tab 1 TAB PO DAILY, #30 TAB 5 Refills Levothyroxine Sodium (Levothyroxine Sodium) 175 Mcg Tab 175 MCG PO QAM for 30 Days, MCG Lisinopril (Lisinopril) 20 Mg Tab 1 TAB PO DAILY, #30 TAB 5 Refills Ondansetron Odt 4MG Tab (Zofran Po) 4 Mg Tb 4 MG SL QIDPRN, #20 TAB ODT TAB-DISSOLVE IN MOUTH, THEN SWALLOW Sitagliptin Phosphate (Januvia) 100 Mg Tab 1 TAB PO DAILY, #30 TAB 5 Refills Trazodone HCl (Trazodone Hydrochloride) 50 Mg Tab 50 MG PO HS, TAB Discontinued Medications: Levofloxacin Hemihydrate (Levaquin 500 Mg) 500 Mg Tab 500 MG PO DAILY for 7 Days, #7 TAB Discharge Statement: "Patient was advised to return to the ER or call 911 if any headaches, dizziness, shortness of breath, chest pain, abdominal pain, bleeding, fevers, or worsening of medical condition. Patient was counseled about treatment plan, medications, possible side effects, patient�verbalized understanding. All questions were answered to the best of my ability. This discharge took greater then 30 minutes in planning, reviewing documentation, counseling the patient, and discussing with other team members." ASSESSMENT ASSESSMENT Assessment recurrent utis s/p cystoscopy with bladder biopsy RACHEL HAZEL MD February 08, 2025 14:51
[2025-02-08] MEDS: MECLIZINE HCL 25 MG TAB PO PRN (16:41)
== END 2025-02-08 18:40 | disposition home or self-care (01) | DRG 670 ==
LOC: ER 20:41 → EDUNIT# 20:41 → EDBD 20:41 → OVERFLOW 02-06 01:35 → TELE-WESTW 02-06 17:13
PROVIDERS: ADMIT Nurse Practitioner Family; ATTEND Nurse Practitioner Family
PROC: 0T5B8ZZ Destruction of Bladder, Via Natural or Artificial Opening Endoscopic (ICD-10-PCS; 2025-02-08)
PROC: 0TBB8ZX Excision of Bladder, Via Natural or Artificial Opening Endoscopic, Diagnostic (ICD-10-PCS; principal; 2025-02-08 08:29)
DX: N30.00 Acute cystitis without hematuria (principal); N32.9 Bladder disorder, unspecified; N34.3 Urethral syndrome, unspecified; R39.14 Feeling of incomplete bladder emptying; E11.65 Type 2 diabetes mellitus with hyperglycemia; E83.42 Hypomagnesemia; K59.00 Constipation, unspecified; Z88.1 Allergy status to other antibiotic agents; Z88.0 Allergy status to penicillin; Z88.8 Allergy status to other drugs, medicaments and biological substances; Z79.899 Other long term (current) drug therapy; Z82.49 Family history of ischemic heart disease and other diseases of the circulatory system; Z83.3 Family history of diabetes mellitus; Z90.710 Acquired absence of both cervix and uterus
CPT/HCPCS: 36415; 70450; 71045; 74177; 80048; 80053; 80061; 81001; 82962; 83036; 83735; 83880; 84484; 85025; 85610; 85730; 87086; 93005; 93306; 96360; G0378; J1815; J1885; J1956; J2003; J2250; J2405; J2704

== ENCOUNTER 2025-07-14 16:25 | Emergency (ER) | payer OTHER, MEDICAID ==
[~2025-07-14] VITALS: Ht 165.1 cm; Wt 72.0 kg
[~2025-07-14 16:25] MED LIST changes: +ATOR20TA50 PO; +LEVO175T4 PO; -LEVO500T91 PO; +LISI20TA56 PO; +SITA100T7 PO; +TRAZ-181 PO
[2025-07-14 17:29] LABS: Hematocrit 36.5 % (36.0-46.0); Hemoglobin 12.9 g/dL (12.2-16.2); Mean Corpuscular Hemoglobin 28.0 pg (28.0-32.0); Mean Corpuscular Volume 79.6 fL (80.0-100.0); Nucleated Red Blood Cells % 0.0 %
--- NOTE | 2025-07-14 17:35 | ED.PDOC ---
History of Present Illness HPI Comments 70 y/o F presents with c/c of nonradiating, RUQ abdominal pain, nausea, vomiting, poor appetite, and generalized weakness for 1x week. Significant history for DM, UTI's, cholecystectomy, and hysterectomy. She reports becoming sick during her trip to [place] [facility] 1x week ago. No reported known sick contact, spoiled food consumption, or further pertinent events or history. Denial of further acute symptoms. Patient was hypertensive at arrival. Chief Complaint: Nausea/Vomiting Time Seen by MD: 17:00 Primary Care Provider: Dr. Alicia Reviewed Notes: Nurses Notes, Medications, Allergies Allergies: Coded Allergies: Azithromycin (Verified Allergy, Unknown, 09/15/24) Cyclobenzaprine (Verified Allergy, Unknown, 02/05/25) Erythromycin (Verified Allergy, Unknown, rash, 02/08/25) Nitrofurantoin (Verified Allergy, Unknown, 02/05/25) Penicillins (Verified Allergy, Unknown, 02/05/25) Sulfa Antibiotics (Verified Allergy, Unknown, 02/05/25) Home Meds Active Scripts Ondansetron Odt 4MG Tab (ZOFRAN PO) 4 Mg Tb, 4 MG SL QIDPRN, #20 TAB ODT TAB-DISSOLVE IN MOUTH, THEN SWALLOW Prov:BUCK MARTI MD 09/16/24 Reported Medications Sitagliptin Phosphate (Januvia) 100 Mg Tab, 1 TAB PO DAILY, #30 TAB 5 Refills 02/06/25 Atorvastatin Calcium (ATORVASTATIN CALCIUM) 20 Mg Tab, 1 TAB PO DAILY, #30 TAB 5 Refills 25 Lisinopril (Lisinopril) 20 Mg Tab, 1 TAB PO DAILY, #30 TAB 5 Refills 25 Trazodone HCl (Trazodone Hydrochloride) 50 Mg Tab, 50 MG PO HS, TAB 02/06/25 Levothyroxine Sodium (Levothyroxine Sodium) 175 Mcg Tab, 175 MCG PO QAM for 30 Days, MCG 02/06/25 Information Source: Patient, Friend Mode of Arrival: Ambulatory Severity: Moderate Timing: Hours Duration: Since onset Prehospital treatment: None Past Medical History PAST MEDICAL HISTORY: DM, UTI'S Surgical History: Cholecystectomy, Hysterectomy UNHAIRER History: Denies all UNHAIRER Hx Family History Family History: Reviewed,noncontributory to illness Social History Smoker: Non-Smoker Alcohol: Denies ETOH Use Drugs: Denies Drug Use Lives In: Home Constitutional: reports: fatigue, weakness; denies: chills, diaphoresis, fever, malaise, sweats, others EENTM: denies: blurred vision, double vision, ear bleeding, ear discharge, ear drainage, ear pain, ear ringing, eye pain, eye redness, hearing loss, mouth pain, mouth swelling, nasal discharge, nose bleeding, nose congestion, nose pain, photophobia, tearing, throat pain, throat swelling, voice changes, others Respiratory: denies: cough, hemoptysis, orthopnea, SOB at rest, shortness of breath, SOB with excertion, stridor, wheezing, others Cardiovascular: denies: chest pain, dizzy spells, diaphoresis, Dyspnea on exertion, edema, irregular heart beat, left arm pain, lightheadedness, palpitations, PND, syncope, others Gastrointestinal: reports: abdominal pain, nausea, vomiting; denies: abdomen distended, blood streaked bowels, constipated, diarrhea, dysphagia, difficulty swallowing, hematemesis, melena, poor appetite, poor fluid intake, rectal bleeding, rectal pain, others Genitourinary: denies: abnormal vagina bleeding, burning, dyspareunia, dysuria, flank pain, frequency, hematuria, incontinence, pain, , vagina discharge, urgency, others Neurological: reports: dizziness; denies: fainting, headache, left sided numbness, left sided weakness, numbness, paresthesia, pre-existing deficit, right sided numbness, right sided weakness, seizure, speech problems, tingling, tremors, weakness, others Musculoskeletal: denies: back pain, gout, joint pain, joint swelling, muscle pain, muscle stiffness, neck pain, others Integumetry: denies: bruises, change in color, change in hair/nails, dryness, laceration, lesions, lumps, rash, wounds, others Allergic/Immunocompromised: denies: Difficulty Healing, Frequent Infections, Hives, Itching, others Hematologic/Lymphatic: denies: anemia, blood clots, easy bleeding, easy bruising, swollen glands, others Endocrine: denies: excessive hunger, excessive sweating, excessive thirst, excessive urination, flushing, intolerance to cold, intolerance to heat, unexplained weight gain, unexplained weight loss, others Psychiatric: denies: anxiety, bipolar disorder, depression, hopeless, panic disorder, schizophrenia, sleepless, suicidal, others All Other Systems: Reviewed and Negative (Comprehensive review of systems are negative unless stated in HPI) Physical Exam General Appearance: Moderate Distress (Moderate distress due to abdominal pain concerns.), Obese HEENT: Normal ENT Inspection, Pharynx Normal, TMs Normal Neck: Full Range of Motion, Non-Tender, Normal, Normal Inspection Respiratory: Chest Non-Tender, Lungs Clear, No Accessory Muscle Use, No Respiratory Distress, Normal Breath Sounds Cardiovascular: No Edema, No JVD, No Murmur, No Gallop, Normal Peripheral Pulses, Regular Rate/Rhythm Breast Exam: Deferred Gastrointestinal: Other (Diffuse nonspecific right-sided upper and lower quadrant pain that extends throughout the pelvic region. Right-sided CVA tenderness appreciated. Difficult to assess due to body habitus. No pulsatile masses.) Genitalia: Deferred Pelvic: Deferred Rectal: Deferred Extremities: Normal capillary refill, Non-tender Neurologic: Alert Cerebellar Function: NOT DONE Reflexes: NOT DONE Skin: Dry, Normal Color, Warm Lymphatic: No Adenopathy Was a procedure done? Was a procedure done?: No Differential Dx Considerations may include: gastritis, gastroenteritis, GERD, cholelithiasis, cystitis, pyelonephritis, nephrolithiasis, viral syndrome, among others X-Ray, Labs, Meds, VS Vital Signs Date Time Temp Pulse Resp B/P (MAP) Pulse Ox O2 Delivery O2 Flow Rate FiO2 07/14/25 20:32 98.6 76 16 147/73 (97) 97 98.6 07/14/25 16:31 98.2 89 18 176/78 99 98.2 Lab Test 07/14/25 20:35 07/14/25 20:31 07/14/25 18:12 07/14/25 17:06 Range/Units Urine Color Light-orange Yellow Urine Clarity Turbid H Clear Urine pH 5.5 5.0-9.0 Urine Specific [place] 1.016 1.001-1.035 Urine Protein Trace H Negative Urine Ketones Negative Negative Urine Blood Negative Negative /uL Urine Nitrite 2+ H Negative Urine Bilirubin Negative Negative Urine Urobilinogen Normal Negative mg/dL Urine Leukocyte Esterase 3+ Negative /uL Urine RBC 1 0 - 4 /hpf Urine WBC Clumps Present None Seen /hpf Urine Microscopic WBC 253 H 0-5 /HPF Urine Squamous Epithelial Cells Few <5 /hpf Urine Bacteria Many H None Seen /hpf Urine Hyaline Casts Few 0 - 2 /lpf Urine Mucus Few None Seen Urine Glucose Trace Normal mg/dL POC Glucose 179 H 70-106 mg/dl Troponin I High Sensitivity 5 5 </=34 ng/L White Blood Count 7.1 4.4-10.8 10^3/uL Red Blood Count 4.59 4.0-5.20 10^6/uL Hemoglobin 12.9 12.2-16.2 g/dL Hematocrit 36.5 36.0-46.0 % Mean Corpuscular Volume 79.6 L 80.0-100.0 fL Mean Corpuscular Hemoglobin 28.0 28.0-32.0 pg Mean Corpuscular Hemoglobin Concent 35.2 32.0-36.0 g/dL Red Cell Distribution Width 14.6 H 11.8-14.3 % Platelet Count 266 140-450 10^3/uL Mean Platelet Volume 7.2 6.9-10.8 fL Neutrophils (%) (Auto) 67.5 37.0-80.0 % Lymphocytes (%) (Auto) 26.0 10.0-50.0 % Monocytes (%) (Auto) 5.2 0.0-12.0 % Eosinophils (%) (Auto) 1.0 0.0-7.0 % Basophils (%) (Auto) 0.3 0.0-2.0 % Neutrophils # (Auto) 4.8 1.6-8.6 10 ^3/uL Lymphocytes # (Auto) 1.8 0.4-5.4 10 ^3/uL Monocytes # (Auto) 0.4 0-1.3 10 ^3/uL Eosinophils # (Auto) 0.1 0-0.8 10 ^3/uL Basophils # (Auto) 0 0-0.2 10 ^3/uL Nucleated Red Blood Cells 0.0 % Sodium Level 138 136-145 mmol/L Potassium Level 3.7 3.5-5.1 mmol/L Chloride Level 98 98-107 mmol/L Carbon Dioxide Level 28 20-31 mmol/L Anion Gap 12 5-15 Blood Urea Nitrogen 10 9-23 mg/dL Creatinine 0.71 0.550-1.02 mg/dL Glomerular Filtration Rate Calc 93 >90 mL/min BUN/Creatinine Ratio 14.1 10.0-20.0 Serum Glucose 228 H 74-106 mg/dL Calcium Level 9.8 8.7-10.4 mg/dL B-Type Natriuretic Peptide 4.00 0-100 pg/mL X-Ray, Labs, Meds, VS Comment All studies performed the ED were evaluated by me personally. Serum studies were unremarkable for any systemic concerns other than poorly controlled glucose levels, but urinalysis confirmed a large bacterial content indicative of a pyelonephritis. Patient was given 1st dose of antibiotics tonight before discharge. Advised patient utilize antibiotics as directed until completion as well as additional medication as needed. Good hydration and healthy nutrition throughout. Patient should follow up with the primary care provider for discussions related to improved blood sugar management. Time of 1ST Reevaluation: 22:09 Reevaluation 1ST: Improved Consultation: PCP Patient Education/Counseling: Diagnosis, Treatment Family Education/Counseling: Diagnosis, Treatment, No Family Present SEPSIS Sepsis Screen Date sepsis recognized/suspect: Jul 14, 2025 Time Sepsis recognized/suspect: 1633 Recent Procedure: No On Antibiotic Therapy: No Respiratory Rate >20: No Heart Rate >90: No Temp<36 C (96.8 F) or >38.3 C: No SBP <90 or MAP <65 mmHG: No New Acute Mental Status Change: No Is the patient on CPAP, BIPAP,: No Physician Orders Chest Portable (07/14/25 16:58) Heplock Iv (07/14/25 16:58) Electrocardigram (07/14/25 16:58) Vital Signs Date Time Temp Pulse Resp B/P (MAP) Pulse Ox O2 Delivery O2 Flow Rate FiO2 07/14/25 20:32 98.6 76 16 147/73 (97) 97 98.6 07/14/25 16:31 98.2 89 18 176/78 99 98.2 Laboratory Tests Test 07/14/25 17:06 White Blood Count 7.1 10^3/uL (4.4-10.8) Departure 1 Departure Time of Disposition: 22:10 Impression: Primary Impression: Pyelonephritis Disposition: 01 HOME / SELF CARE / HOMELESS Condition: Stable Additional Instructions: Advised patient utilize antibiotics as directed until completion as well as additional medication as needed. Patient should practice good hydration and healthy nutrition throughout. e-Prescriptions Acetaminophen (Acetaminophen) 500 Mg Tab 500 MG PO Q4HP PRN, #30 TAB Prov: STACY,ROMI Inocente PAC 07/14/25 Ondansetron Odt 4MG Tab (ZOFRAN PO) 4 Mg Tb 4 MG PO Q6HP PRN, #15 TAB ODT TAB-DISSOLVE IN MOUTH, THEN SWALLOW Prov: ROMI KUMAR PAC 07/14/25 Ciprofloxacin Hcl (Cipro) 500 Mg Tab 1 TAB PO BID for 10 Days, #20 TAB Prov: STACYROMI AGUERO PAC 07/14/25 Discharged With: Self, Relative Critical Care Note Critical Care Time?: No Stability Stability form required: No Heart Score Heart Score: Heart Score Response (Comments) Value History N/A 0 EKG N/A 0 Age N/A 0 Risk Factors N/A 0 Troponin N/A 0 Total 0 I personally scribed for ROMI KUMAR PAC ([email or web address]) on 07/14/25 at 17:35. Electronically submitted by Alonso Potts [email or web address]). I personally scribed for ROMI KUMAR PAC ([email or web address]) on 07/14/25 at 17:54. Electronically submitted by Alonso Potts [email or web address]). ROMI KUMAR PAC Jul 14, 2025 17:35
[2025-07-14 17:49] LABS: Chloride 98 mmol/L (98-107); Potassium 3.7 mmol/L (3.5-5.1); Sodium 138 mmol/L (136-145)
[2025-07-14 17:50] LABS: Anion Gap 12 (5-15); Calcium 9.8 mg/dL (8.7-10.4); Carbon Dioxide 28 mmol/L (20-31)
[2025-07-14 17:55] LABS: BUN/Creatinine Ratio 14.1 (10.0-20.0); Blood Urea Nitrogen 10 mg/dL (9-23)
[2025-07-14 18:02] LABS: Glucose 228 mg/dL (74-106)
--- NOTE | 2025-07-14 18:45 | DVH ---
EXAM: XY CHEST PORTABLE CLINICAL HISTORY: Shortness of breath TECHNIQUE: Single AP view of the chest WID: COMPARISON: XY CHEST PORTABLE on DOS: 02/07/25 FINDINGS: Lines and tubes: None Chest: The heart size and pulmonary vasculature is within normal limits. No pleural effusion, pneumothorax, or consolidation. Linear bibasilar scarring or atelectasis. The osseous structures are grossly intact. IMPRESSION: 1. No acute cardiopulmonary abnormality.
[2025-07-14 20:32] VITALS: BP 147/73; PULSE 76; RESP 16; TEMP 98.6; O2SAT 97
[2025-07-14 21:48] LABS: Urine Protein, UAD TRACE (Negative); Urine WBC Clumps PRESENT /hpf (None Seen)
[2025-07-14] MEDS ORDERED: ACET500T58 PO (22:12)
[2025-07-14] MEDS ORDERED: CIPR-173 PO (22:12)
[2025-07-14] MEDS ORDERED: ZOFR4T PO (22:12)
[2025-07-14] MEDS: ONDANSETRON HCL 4 MG/2 ML VIAL IM ONE (22:15)
[2025-07-14] MEDS: CIPROFLOXACIN HCL 500 MG TAB PO ONE (22:15)
[2025-07-14] MEDS: SODIUM CHLORIDE 0.9% 1,000 ML IV ONE (22:30)
== END 2025-07-14 23:32 | disposition home or self-care (01) ==
LOC: ER 16:28
DX: N12 Tubulo-interstitial nephritis, not specified as acute or chronic (principal); E11.9 Type 2 diabetes mellitus without complications; I10 Essential (primary) hypertension; Z79.84 Long term (current) use of oral hypoglycemic drugs; Z79.899 Other long term (current) drug therapy; Z87.440 Personal history of urinary (tract) infections; Z90.49 Acquired absence of other specified parts of digestive tract; Z90.710 Acquired absence of both cervix and uterus; Z88.0 Allergy status to penicillin; Z88.1 Allergy status to other antibiotic agents; Z88.2 Allergy status to sulfonamides; Z88.8 Allergy status to other drugs, medicaments and biological substances
CPT/HCPCS: 36415; 71045; 80048; 81001; 82947; 83880; 84484; 85025; 96360; 96372; 99284; J2405; J7030; 82962

== ENCOUNTER 2025-07-23 17:42 | Inpatient (IN) | payer MEDICARE, MEDICAID ==
[~2025-07-23] VITALS: Ht 165.1 cm; Wt 80.8 kg
[~2025-07-23 17:42] MED LIST changes: +ACET500T58 PO; +CIPR-173 PO; +ZOFR4T PO
--- NOTE | 2025-07-23 19:28 | ED.PDOC ---
History of Present Illness HPI Comments Ms. Valdez a 70-year-old female with prior medical history of type 2 diabetes mellitus, hypertension, hyperlipidemia, cholelithiasis, and UTIs, who presents today with chief complaint of right-sided abdominal pain and nausea. The patient states that 2 weeks ago onset of stabbing pain in right lumbar region, n onradiating, 7-8/10 intensity, associated with fatigue, vomit, nausea, strong smelling urine. She denies visible hematuria, diarrhea, palpitations, chest pain, vomiting, chills, flank pain, and diaphoresis. She was seen at this institution on 07/14/2025, where she was sent home with patient of ciprofloxacin 500 mg p.o. b.i.d.. Additionally she states that her urologist, Dr. Redman, has her on Keflex 250 mg p.o. daily. Patient states that she had an appointment with her urologist today, who sent her to the ED for imaging. Chief Complaint: Abdominal Pain Time Seen by MD: 19:10 Primary Care Provider: Dr. Alicia Allergies: Coded Allergies: Azithromycin (Verified Allergy, Unknown, 09/15/24) Cyclobenzaprine (Verified Allergy, Unknown, 02/05/25) Erythromycin (Verified Allergy, Unknown, rash, 02/08/25) Nitrofurantoin (Verified Allergy, Unknown, 02/05/25) Penicillins (Verified Allergy, Unknown, 02/05/25) Sulfa Antibiotics (Verified Allergy, Unknown, 02/05/25) Home Meds Active Scripts Acetaminophen (Acetaminophen) 500 Mg Tab, 500 MG PO Q4HP PRN, #30 TAB Prov:ROMI KUMAR 07/14/25 Ondansetron Odt 4MG Tab (ZOFRAN PO) 4 Mg Tb, 4 MG PO Q6HP PRN, #15 TAB ODT TAB-DISSOLVE IN MOUTH, THEN SWALLOW Prov:ROMI KUMAR 07/14/25 Ciprofloxacin Hcl (Cipro) 500 Mg Tab, 1 TAB PO BID for 10 Days, #20 TAB Prov:ROMI KUMAR 07/14/25 Ondansetron Odt 4MG Tab (ZOFRAN PO) 4 Mg Tb, 4 MG SL QIDPRN, #20 TAB ODT TAB-DISSOLVE IN MOUTH, THEN SWALLOW Prov:BUCK MARTI MD 09/16/24 Reported Medications Sitagliptin Phosphate (Januvia) 100 Mg Tab, 1 TAB PO DAILY, #30 TAB 5 Refills 02/06/25 Atorvastatin Calcium (ATORVASTATIN CALCIUM) 20 Mg Tab, 1 TAB PO DAILY, #30 TAB 5 Refills 02/06/25 Lisinopril (Lisinopril) 20 Mg Tab, 1 TAB PO DAILY, #30 TAB 5 Refills 02/06/25 Trazodone HCl (Trazodone Hydrochloride) 50 Mg Tab, 50 MG PO HS, TAB 02/06/25 Levothyroxine Sodium (Levothyroxine Sodium) 175 Mcg Tab, 175 MCG PO QAM for 30 Days, MCG 02/06/25 Information Source: Patient Mode of Arrival: Ambulatory Severity: Mild Timing: Weeks Duration: Since onset Past Medical History PAST MEDICAL HISTORY: DM, High Lipids, HTN, Kidney Stones, UTI'S Surgical History: Appendectomy, Cholecystectomy, Hysterectomy, Tonsillectomy 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 FINISHER History: Uterine Fibroids Family History Family History: Reviewed,noncontributory to illness Social History Smoker: Non-Smoker Alcohol: Denies ETOH Use Drugs: Denies Drug Use Lives In: Home Constitutional: reports: fatigue EENTM: denies: blurred vision, double vision, ear bleeding, ear discharge, ear drainage, ear pain, ear ringing, eye pain, eye redness, hearing loss, mouth pain, mouth swelling, nasal discharge, nose bleeding, nose congestion, nose pain, photophobia, tearing, throat pain, throat swelling, voice changes, others Respiratory: denies: cough, hemoptysis, orthopnea, SOB at rest, shortness of breath, SOB with excertion, stridor, wheezing, others Cardiovascular: denies: chest pain, dizzy spells, diaphoresis, Dyspnea on exertion, edema, irregular heart beat, left arm pain, lightheadedness, palpitations, PND, syncope, others Gastrointestinal: reports: nausea, vomiting Genitourinary: reports: dysuria, urgency, others (Right lumbar region pain) Neurological: denies: dizziness, fainting, headache, left sided numbness, left sided weakness, numbness, paresthesia, pre-existing deficit, right sided numbness, right sided weakness, seizure, speech problems, tingling, tremors, weakness, others Musculoskeletal: denies: back pain, gout, joint pain, joint swelling, muscle pain, muscle stiffness, neck pain, others Integumetry: denies: bruises, change in color, change in hair/nails, dryness, laceration, lesions, lumps, rash, wounds, others Endocrine: denies: excessive hunger, excessive sweating, excessive thirst, excessive urination, flushing, intolerance to cold, intolerance to heat, unexplained weight gain, unexplained weight loss, others Physical Exam General Appearance: Mild Distress HEENT: Normal ENT Inspection, PERRL/EOMI, Pharynx Normal Neck: Full Range of Motion, Non-Tender, Normal, Normal Inspection Respiratory: Chest Non-Tender, Lungs Clear, No Accessory Muscle Use, No Respiratory Distress, Normal Breath Sounds Cardiovascular: No Edema, No JVD, No Murmur, No Gallop, Normal Peripheral Pulses, Regular Rate/Rhythm Breast Exam: Deferred Gastrointestinal: No Organomegaly, Non Tender, No Pulsatile Mass, Normal Bowel Sounds, Soft Genitalia: Deferred Pelvic: Deferred Rectal: Deferred Extremities: No calf tenderness, Normal capillary refill, Normal inspection, Normal range of motion, Non-tender, No pedal edema Neurologic: No Motor Deficits, Normal Affect, No Sensory Deficits Cerebellar Function: Normal Reflexes: Normal Skin: Normal Color Lymphatic: No Adenopathy Was a procedure done? Was a procedure done?: No Differential Dx Considerations may include: UTI, nephrolithiasis, ureterolithiasis, perinephric abscess, muscle strain X-Ray, Labs, Meds, VS Vital Signs Date Time Temp Pulse Resp B/P (MAP) Pulse Ox O2 Delivery O2 Flow Rate FiO2 07/23/25 21:11 97 Room Air* 0 21 07/23/25 20:43 97.9 70 16 156/79 (104) 95 97.9 07/23/25 17:43 98.3 84 16 158/87 98 98.3 Lab Test 07/23/25 19:39 07/23/25 19:32 Range/Units Urine Color Colorless Yellow Urine Clarity Turbid H Clear Urine pH 5.5 5.0-9.0 Urine Specific [place] 1.015 1.001-1.035 Urine Protein Trace H Negative Urine Ketones 1+ H Negative Urine Blood Trace H Negative /uL Urine Nitrite Negative Negative Urine Bilirubin Negative Negative Urine Urobilinogen 2 H Negative mg/dL Urine Leukocyte Esterase 3+ Negative /uL Urine RBC 13 0 - 4 /hpf Urine WBC Clumps Present None Seen /hpf Urine Microscopic WBC 262 H 0-5 /HPF Urine Squamous Epithelial Cells Few <5 /hpf Urine Bacteria Many H None Seen /hpf Urine Mucus Many None Seen Urine Glucose 4+ H Normal mg/dL White Blood Count 7.6 4.4-10.8 10^3/uL Red Blood Count 4.69 4.0-5.20 10^6/uL Hemoglobin 13.2 12.2-16.2 g/dL Hematocrit 37.7 36.0-46.0 % Mean Corpuscular Volume 80.4 80.0-100.0 fL Mean Corpuscular Hemoglobin 28.1 28.0-32.0 pg Mean Corpuscular Hemoglobin Concent 34.9 32.0-36.0 g/dL Red Cell Distribution Width 14.7 H 11.8-14.3 % Platelet Count 281 140-450 10^3/uL Mean Platelet Volume 6.7 L 6.9-10.8 fL Neutrophils (%) (Auto) 70.1 37.0-80.0 % Lymphocytes (%) (Auto) 23.3 10.0-50.0 % Monocytes (%) (Auto) 5.0 0.0-12.0 % Eosinophils (%) (Auto) 1.2 0.0-7.0 % Basophils (%) (Auto) 0.4 0.0-2.0 % Neutrophils # (Auto) 5.3 1.6-8.6 10 ^3/uL Lymphocytes # (Auto) 1.8 0.4-5.4 10 ^3/uL Monocytes # (Auto) 0.4 0-1.3 10 ^3/uL Eosinophils # (Auto) 0.1 0-0.8 10 ^3/uL Basophils # (Auto) 0 0-0.2 10 ^3/uL Nucleated Red Blood Cells 0.1 % Sodium Level 137 136-145 mmol/L Potassium Level 3.7 3.5-5.1 mmol/L Chloride Level 98 98-107 mmol/L Carbon Dioxide Level 29 20-31 mmol/L Anion Gap 10 5-15 Blood Urea Nitrogen 9 9-23 mg/dL Creatinine 0.73 0.550-1.02 mg/dL Glomerular Filtration Rate Calc 90 >90 mL/min BUN/Creatinine Ratio 12.3 10.0-20.0 Serum Glucose 285 H 74-106 mg/dL Calcium Level 10.3 8.7-10.4 mg/dL Current Medications Medications (Trade) Dose Ordered Sig/Tim Route Start Time Stop Time Status Last Admin Ceftriaxone Sodium 50 ml @ 100 mls/hr ONCE ONCE IV 07/23/25 20:45 07/23/25 21:14 DC 07/23/25 21:05 Time of 1ST Reevaluation: 20:30 Reevaluation 1ST: Unchanged Patient Education/Counseling: Diagnosis, Treatment Family Education/Counseling: No Family Present SEPSIS Sepsis Screen Date sepsis recognized/suspect: Jul 23, 2025 Time Sepsis recognized/suspect: 1742 Recent Procedure: No On Antibiotic Therapy: No Respiratory Rate >20: No Heart Rate >90: No Temp<36 C (96.8 F) or >38.3 C: No SBP <90 or MAP <65 mmHG: No New Acute Mental Status Change: No Is the patient on CPAP, BIPAP,: No Physician Orders Ct Ab Pel With Iv Con Only (07/23/25 19:25) Urine Bacterial Culture (07/23/25 20:58) Vital Signs Date Time Temp Pulse Resp B/P (MAP) Pulse Ox O2 Delivery O2 Flow Rate FiO2 07/23/25 21:11 97 Room Air* 0 21 07/23/25 20:43 97.9 70 16 156/79 (104) 95 97.9 07/23/25 17:43 98.3 84 16 158/87 98 98.3 Laboratory Tests Test 07/23/25 19:32 White Blood Count 7.6 10^3/uL (4.4-10.8) Medications Medications Dose Ordered Sig/Tim Route Start Time Stop Time Status Last Admin Dose Admin Ceftriaxone Sodium 50 ml @ 100 mls/hr ONCE ONCE IV 07/23/25 20:45 07/23/25 21:14 DC 07/23/25 21:05 Departure 1 Departure Time of Disposition: 20:39 (With lumbar region pain in the context of chronic UTI for any for possible nephrolithiasis and perinephric abscess. 1. I ordered and I reviewed the results of at least 3 labs including a CBC, BMP, and urinalysis. Patient with history of recurrent urinary tract infections for which she recently has taken numerous courses of antibiotics. Unfortunately also has numerous antibiotic allergies. Despite being on oral antibiotics currently her urinalysis today once again shows many white blood cells, leukocyt e esterase, hematuria which seems consistent with persistent UTI. Patient was given IV ceftriaxone for signs of persisting UTI. A CT of the abdomen and pelvis was also performed to ensure that she has no signs of perinephric abscess or other intra-abdominal complications. CT of the abdomen and pelvis is within normal limits. Patient will be admitted for further IV antibiotics given what appears to be failed outpatient treatment with oral antibiotics.) Impression: Primary Impression: Urinary tract infection Disposition: ADMITTED INPATIENT Admit to: Med Surg Condition: Stable Additional Instructions: Presented today right lumbar region pain context of chronic UTI. The patient was previously seen at this institution on 07/14/2025 where she was sent home with prescription for ciprofloxacin, which she states she has completed. The patient has also been on long-term treatment with Keflex 250 mg p.o. as per her urologist. CBC within normal range BMP within normal range Urinalysis significant for UTI Due to failure of multiple courses of oral antibiotics, the patient will be admitted for further workup and management. Critical Care Note Critical Care Time?: No Stability Stability form required: AMOL Jara RESIDENT Jul 23, 2025 19:28 BARBIE REAL MD Jul 24, 2025 00:31
[2025-07-23 19:39] LABS: Hematocrit 37.7 % (36.0-46.0); Hemoglobin 13.2 g/dL (12.2-16.2); Mean Corpuscular Hemoglobin 28.1 pg (28.0-32.0); Mean Corpuscular Volume 80.4 fL (80.0-100.0); Nucleated Red Blood Cells % 0.1 %
[2025-07-23 19:53] LABS: Potassium 3.7 mmol/L (3.5-5.1); Sodium 137 mmol/L (136-145)
[2025-07-23 19:54] LABS: Anion Gap 10 (5-15); Calcium 10.3 mg/dL (8.7-10.4); Carbon Dioxide 29 mmol/L (20-31)
[2025-07-23 19:57] LABS: Chloride 98 mmol/L (98-107)
[2025-07-23 19:59] LABS: BUN/Creatinine Ratio 12.3 (10.0-20.0)
[2025-07-23 20:01] LABS: Blood Urea Nitrogen 9 mg/dL (9-23); Glucose 285 mg/dL (74-106)
[2025-07-23 20:17] LABS: Urine Protein, UAD TRACE (Negative); Urine WBC Clumps PRESENT /hpf (None Seen)
[2025-07-23 21:11] VITALS: O2SAT 97
[2025-07-23] MEDS: IOHEXOL 300 MG/ML 100ML BOTTLE IJ ONE (23:11)
--- NOTE | 2025-07-23 23:41 | DVH ---
Exam: CT CT AB PEL WITH IV CON ONLY History: Rule out perinephric abscess Comparison Study: CT CT AB PEL WITH IV CON ONLY on DOS: 02/06/25, CT CT AB PEL WO CON-NO ORAL OR IV on DOS: 09/15/24 TECHNIQUE: A digital web sizer image was obtained. During the uneventful, intravenous administration of c ontrast material, multislice data acquisition was obtained through the abdomen and pelvis. The data s et was subsequently reconstructed into multiplanar reformats. RADIATION DOSE: CTDI vol 19.0 mGy. DLP 1036.57 mGy.cm Findings: Lungs: Mild basilar atelectasis/scarring. Liver: Unremarkable. Spleen: Unremarkable. Pancreas: Unremarkable. Gallbladder: Prior cholecystectomy. Adrenals: Unremarkable Kidneys: Left renal cyst and additional too small to characterize renal lesions. No hydronephrosis. Pelvic Viscera: Prior hysterectomy. 3.2 cm cystic right adnexal lesion. Vasculature: Unremarkable. Retroperitoneum: Unremarkable. Bowel: Colonic diverticulosis without CT evidence of diverticulitis. No bowel obstruction. Musculoskeletal: Unremarkable. Soft tissues: Unremarkable Impression: 1. No acute abdominopelvic abnormality. No evidence of perinephric abscess. 2. 3.2 cm cystic right adnexal lesion, which may be further evaluated with a nonemergent pelvic ultra sound as clinically indicated. 3. Incidental findings as detailed.
[2025-07-24] VITALS (7 sets, daily range): BP systolic 129–157; BP diastolic 60–69; PULSE 59–79; RESP 14–18; TEMP 98–98.6; O2SAT 95–98
[2025-07-24] MEDS ORDERED: MORPHINE SULFATE INJ 2 MG/ml SYRG IV PRN (00:15)
[2025-07-24] MEDS ORDERED: DEXTROSE (50%) 50ML SYRG IV PRN (00:15)
[2025-07-24] MEDS ORDERED: NITROGLYCERIN 0.4 MG SL TAB SL PRN (00:15)
[2025-07-24] MEDS: SODIUM CHLORIDE 0.9% 1,000 ML IV SCH (01:29)
--- NOTE | 2025-07-24 02:00 | DVHHP2 ---
NOE GLASGOW DUST BOX TENDER 07/24/25 0200: History of Present Illness Reason for Visit: Urinary symptoms History of Present Illness 70-year-old female with past medical history of hypertension, uncontrolled DM presents with complaints of urinary symptoms worsening over the previous 3 weeks. Patient 1st began to experience urinary symptoms in February of 2025. She is being followed by Urology. Was sent into the emergency department per her urologist for imaging. Patient was recently at this facility on July 14, 2025 at which time she was prescribed ciprofloxacin. Patient endorses that she took her home prescription as ordered. Patient has also been on a continuous Keflex regimen per Urology. She states that she also went to [facility] urgent care and was treated with IV Rocephin. At this time patient is endorsing generalized weakness, poor appetite, nausea, abdominal pain and hematuria. Denies fevers, chills, shortness of breath, chest pain, palpitations, leg swelling. Cardiovascular: HTN Endocrine: Diabetes Smoke: No ALCOHOL: none Drugs: None Lives: with Family Review of Systems Constitutional: Yes: Weakness, Malaise; No: Fever, Chills, Sweats, Other Eyes: No: Pain, Vision change, Conjunctivae inflammation, Eyelid inflammation, Other, Redness ENT: No: Ear pain, Ear discharge, Nose pain, Nose discharge, Nose congestion, Mouth pain, Mouth swelling, Throat pain, Throat swelling, Other Respiratory: No: Cough, Dry, Shortness of breath, SOB with excertion, Wheezing, Hemoptysis, Pleuritic Pain, Sputum, Wheezing, Other Cardiovascular: No: Chest Pain, Palpitations, Orthopnea, Paroxysmal Noc. Dyspnea, Edema, Lt Headedness, Other Gastrointestinal: Nausea, Abdominal Pain; No: Vomiting, Diarrhea, Constipation, Melena, Hematochezia, Other Genitourinary: Dysuria; No Frequency, No Incontinence; Hematuria; No Retention, No Other Musculoskeletal: No: other, neck pain, shoulder pain, arm pain, back pain, hand pain, leg pain, foot pain Skin: No: Rash, Lesions, Jaundice, Bruising, Other Neurological: No: Weakness, Numbness, Incoordination, Change in speech, Confusion, Seizures, Other Allergies: Coded Allergies: Azithromycin (Verified Allergy, Unknown, 09/15/24) Cyclobenzaprine (Verified Allergy, Unknown, 02/05/25) Erythromycin (Verified Allergy, Unknown, rash, 02/08/25) Nitrofurantoin (Verified Allergy, Unknown, 02/05/25) Penicillins (Verified Allergy, Unknown, 02/05/25) Sulfa Antibiotics (Verified Allergy, Unknown, 02/05/25) Medications Current Medications Medications Dose Ordered Sig/Tim Route Start Time Stop Time Status Last Admin Dose Admin Sodium Chloride 1,000 ml @ 75 mls/hr [id number] IV 07/24/25 00:15 07/24/25 01:29 75 MLS/HR Docusate Sodium 100 mg BIDPRN PRN PO 07/24/25 00:15 Acetaminophen 650 mg Q6HP PRN PO 07/24/25 00:15 Acetaminophen/ Hydrocodone Bitart 1 tab Q6HPRN PRN PO 07/24/25 00:15 Ondansetron HCl 4 mg Q4HP PRN IV 07/24/25 00:15 Nitroglycerin 0.4 mg Q5MINP PRN SL 07/24/25 00:15 Morphine Sulfate 2 mg Q30M PRN IV 07/24/25 00:15 Diagnostic Test (Pha) 1 strip ACHS 07/24/25 07:00 Insulin Human Regular HS SC 07/24/25 22:00 Insulin Human Regular AC SC 07/24/25 07:00 Dextrose 50 ml UD PRN IV 07/24/25 00:15 Ceftriaxone Sodium 50 ml @ 100 mls/hr DAILY IV 07/24/25 10:00 UNV Exam Vital Signs Vital Signs Date Time Temp Pulse Resp B/P (MAP) Pulse Ox O2 Delivery O2 Flow Rate FiO2 07/24/25 00:21 98.2 80 20 142/76 (98) 96 98.2 07/23/25 21:11 Room Air* 0 21 General Appearance: Alert, Oriented X3, moderate distress HEENT: Atraumatic, PERRLA, EOMI Respiratory: Clear to auscultation Cardiovascular: Regular rate, Normal S1, Normal S2 Abdominal: Normal bowel sounds, Soft Extremities: No clubbing, No cyanosis, No edema Skin: No rashes, No breakdown Neuro: Normal speech, Strength at 5/5 X4 ext Psych/Mental Status: Mental status NL, Mood NL Labs/Xrays Labs Test 07/23/25 19:39 07/23/25 19:32 Range/Units Urine Color Colorless Yellow Urine Clarity Turbid H Clear Urine pH 5.5 5.0-9.0 Urine Specific [place] 1.015 1.001-1.035 Urine Protein Trace H Negative Urine Ketones 1+ H Negative Urine Blood Trace H Negative /uL Urine Nitrite Negative Negative Urine Bilirubin Negative Negative Urine Urobilinogen 2 H Negative mg/dL Urine Leukocyte Esterase 3+ Negative /uL Urine RBC 13 0 - 4 /hpf Urine WBC Clumps Present None Seen /hpf Urine Microscopic WBC 262 H 0-5 /HPF Urine Squamous Epithelial Cells Few <5 /hpf Urine Bacteria Many H None Seen /hpf Urine Mucus Many None Seen Urine Glucose 4+ H Normal mg/dL White Blood Count 7.6 4.4-10.8 10^3/uL Red Blood Count 4.69 4.0-5.20 10^6/uL Hemoglobin 13.2 12.2-16.2 g/dL Hematocrit 37.7 36.0-46.0 % Mean Corpuscular Volume 80.4 80.0-100.0 fL Mean Corpuscular Hemoglobin 28.1 28.0-32.0 pg Mean Corpuscular Hemoglobin Concent 34.9 32.0-36.0 g/dL Red Cell Distribution Width 14.7 H 11.8-14.3 % Platelet Count 281 140-450 10^3/uL Mean Platelet Volume 6.7 L 6.9-10.8 fL Neutrophils (%) (Auto) 70.1 37.0-80.0 % Lymphocytes (%) (Auto) 23.3 10.0-50.0 % Monocytes (%) (Auto) 5.0 0.0-12.0 % Eosinophils (%) (Auto) 1.2 0.0-7.0 % Basophils (%) (Auto) 0.4 0.0-2.0 % Neutrophils # (Auto) 5.3 1.6-8.6 10 ^3/uL Lymphocytes # (Auto) 1.8 0.4-5.4 10 ^3/uL Monocytes # (Auto) 0.4 0-1.3 10 ^3/uL Eosinophils # (Auto) 0.1 0-0.8 10 ^3/uL Basophils # (Auto) 0 0-0.2 10 ^3/uL Nucleated Red Blood Cells 0.1 % Sodium Level 137 136-145 mmol/L Potassium Level 3.7 3.5-5.1 mmol/L Chloride Level 98 98-107 mmol/L Carbon Dioxide Level 29 20-31 mmol/L Anion Gap 10 5-15 Blood Urea Nitrogen 9 9-23 mg/dL Creatinine 0.73 0.550-1.02 mg/dL Glomerular Filtration Rate Calc 90 >90 mL/min BUN/Creatinine Ratio 12.3 10.0-20.0 Serum Glucose 285 H 74-106 mg/dL Calcium Level 10.3 8.7-10.4 mg/dL SEPSIS Sepsis Screen Date sepsis recognized/suspect: Jul 23, 2025 Time Sepsis recognized/suspect: 2112 Recent Procedure: No On Antibiotic Therapy: No Respiratory Rate >20: No Heart Rate >90: No Temp<36 C (96.8 F) or >38.3 C: No SBP <90 or MAP <65 mmHG: No New Acute Mental Status Change: No Is the patient on CPAP, BIPAP,: No Physician Orders Ct Ab Pel With Iv Con Only (07/23/25 19:25) Urine Bacterial Culture (07/23/25 20:58) Admit (07/24/25 00:01) Code Status (07/24/25 00:01) Vital Signs .PER UNIT PROTOCOL (07/24/25 00:01) Review Orders With Adm. (07/24/25 00:01) Encourage Activity As Tolerate (07/24/25 00:01) Consistent Carb(Ccho)Diabetes (07/24/25 Breakfast) Sodium Chloride 0.9% (07/24/25 00:15) Oxygen By Face Mask (07/24/25 00:01) Docusate Sodium Capsule (Colace Capsule) (07/24/25 00:15) Acetaminophen Tablet (Tylenol Tablet) (07/24/25 00:15) Notify Md Of Changes From Base (07/24/25 00:01) Advance Directive (07/24/25 00:01) Basic Metabolic Panel (07/24/25 05:00) Basic Metabolic Panel (07/25/25 05:00) Basic Metabolic Panel (07/26/25 05:00) Complete Blood Count (07/24/25 05:00) Complete Blood Count (07/25/25 05:00) Complete Blood Count (07/26/25 05:00) Patient Condition (07/24/25 00:01) Allergies (07/24/25 00:01) Hydrocodone-Acet 5/325mg Tab ([place] 5/32 (07/24/25 00:15) Ondansetron Hcl (Zofran) (07/24/25 00:15) Sequential Compression Device (07/24/25 ) Nitroglycerin Sublingual (Ntrostat Subli (07/24/25 00:15) Morphine Sulfate Injection (07/24/25 00:15) Stat Ekg For Chest Pain (07/24/25 00:01) Notify Of Changes From Base (07/24/25 00:01) Hand Grinder For 24 Hours (07/24/25 00:01) Emergency Dysrhythmia Protocol (07/24/25 00:) Rhythm Strips Once Every Shift (07/24/25 00:01) Oxygen By Nasal Cannula (07/24/25 00:01) Glucose Blood (Accu-Chek Comfort Curve T (07/24/25 07:00) Insulin R (Human) (Insulin R) (07/24/25 22:00) Insulin R (Human) (Insulin R) (07/24/25 07:00) Dextrose 50% Syringe (07/24/25 00:15) Ceftriaxone 1gm/50ml (Rocephin) (07/24/25 10:00) * Infectious [place]- Dr. Munoz (07/24/25 00:01) Melatonin (Melatonin) (07/24/25 22:00) Vital Signs Date Time Temp Pulse Resp B/P (MAP) Pulse Ox O2 Delivery O2 Flow Rate FiO2 07/24/25 00:21 98.2 80 20 142/76 (98) 96 98.2 07/23/25 21:11 97 Room Air* 0 21 07/23/25 20:43 97.9 70 16 156/79 (104) 95 97.9 Laboratory Tests Test 07/23/25 19:32 White Blood Count 7.6 10^3/uL (4.4-10.8) Medications Medications Dose Ordered Sig/Tim Route Start Time Stop Time Status Last Admin Dose Admin Ceftriaxone Sodium 50 ml @ 100 mls/hr ONCE ONCE IV 07/23/25 20:45 07/23/25 21:14 DC 07/23/25 21:05 100 MLS/HR Sodium Chloride 1,000 ml @ 75 mls/hr [id number] IV 07/24/25 00:15 07/24/25 01:29 75 MLS/HR Assessment/Plan Assessment/Plan Complicated UTI with failed outpatient treatment Uncontrolled DM with hyperglycemia Generalized weakness Plan Admit medical floor Consult infectious disease. Urine culture pending. IVF / IV ABX Blood glucose check with moderate dosing regular insulin sliding scale coverage 1800 jackelyn ADA diet Physical therapy evaluation. GI ppx Pepcid / DVT ppx SCD Plan discussed with: Patient My Orders Orders - NOE GLASGOW NP Procedure Category Date Status Time Admit ADMIT 07/24/25 Transmitted 00:01 Code Status CODE 07/24/25 Transmitted 00:01 Vital Signs OFELIA 07/24/25 In Process 00:01 Review Orders With OFELIA 07/24/25 In Process Adm. 00:01 Encourage Activity As OFELIA 07/24/25 In Process Tolerate 00:01 Consistent DIET 07/24/25 Transmitted Carb(Ccho)Diabetes Breakfast Sodium Chloride 0.9% PHA 07/24/25 In Process 00:15 Oxygen By Face Mask RT 07/24/25 Transmitted 00:01 Docusate Sodium PHA 07/24/25 In Process Capsule (Colace 00:15 Acetaminophen Tablet PHA 07/24/25 In Process (Tylenol Tablet) 00:15 Notify Of Changes OFELIA 07/24/25 In Process From Base 00:01 Advance Directive OFELIA 07/24/25 In Process 00:01 Basic Metabolic Panel LAB 07/24/25 Logged 05:00 Basic Metabolic Panel LAB 07/25/25 Verified 05:00 Basic Metabolic Panel LAB 07/26/25 Verified 05:00 Complete Blood Count LAB 07/24/25 Logged 05:00 Complete Blood Count LAB 07/25/25 Verified 05:00 Complete Blood Count LAB 07/26/25 Verified 05:00 Patient Condition ORDERS 07/24/25 Transmitted 00:01 Allergies OFELIA 07/24/25 In Process 00:01 Hydrocodone-Acet PHA 07/24/25 In Process 5/325mg Tab ([place] 00:15 Ondansetron Hcl PHA 07/24/25 In Process (Zofran) 00:15 Sequential OFELIA 07/24/25 In Process Compression Device Nitroglycerin PHA 07/24/25 In Process Sublingual (Ntrostat 00:15 Morphine Sulfate PHA 07/24/25 In Process Injection 00:15 Stat Ekg For Chest OFELIA 07/24/25 In Process Pain 00:01 Notify Of Changes [facility] 07/24/25 In Process From Base 00:01 Hand Grinder For [facility] 07/24/25 In Process 24 Hours 00:01 Emergency Dysrhythmia [facility] 07/24/25 In Process Protocol 00:01 Rhythm Strips Once [facility] 07/24/25 In Process Every Shift 00:01 Oxygen By Nasal RT 07/24/25 Transmitted Cannula 00:01 Glucose Blood PHA 07/24/25 In Process (Accu-Chek Comfort 07:00 Insulin R (Human) PHA 07/24/25 In Process (Insulin R) 22:00 Insulin R (Human) PHA 07/24/25 In Process (Insulin R) 07:00 Dextrose 50% Syringe PHA 07/24/25 In Process 00:15 Ceftriaxone 1gm/50ml PHA 07/24/25 Pending (Rocephin) 10:00 * Infectious Greg- CONS 07/24/25 Transmitted [place]ad 00:01 Melatonin (Melatonin) PHA 07/24/25 In Process 22:00 Date of Service: Jul 24, 2025 Billing Provider: RACHEL HAZEL MD Common Visit Codes: NOT BILLABLE RACHEL HAZEL MD 07/24/25 1622: Review of Systems Allergies: Coded Allergies: Azithromycin (Verified Allergy, Unknown, 09/15/24) Cyclobenzaprine (Verified Allergy, Unknown, 02/05/25) Erythromycin (Verified Allergy, Unknown, rash, 02/08/25) Nitrofurantoin (Verified Allergy, Unknown, 02/05/25) Penicillins (Verified Allergy, Unknown, 02/05/25) Sulfa Antibiotics (Verified Allergy, Unknown, 02/05/25) Additional Comments Additional Comments Additional Comments Patient is seen and evaluated by me earlier today. Patient's chart is reviewed and discussed with the nurse practitioner. Patient is seen evaluated and admitted by DUST BOX TENDER this morning. I agree with his evaluation, documentation, assessment and care plan as outlined. NOE GLASGOW D[employer] B[employer] T[employer]ER Jul 24, 2025 02:00 RACHEL HAZEL MD Jul 24, 2025 16:22
[2025-07-24 04:35] LABS: Hematocrit 34.1 % (36.0-46.0); Hemoglobin 11.9 g/dL (12.2-16.2); Mean Corpuscular Hemoglobin 28.0 pg (28.0-32.0); Mean Corpuscular Volume 80.4 fL (80.0-100.0); Nucleated Red Blood Cells % 0.1 %
[2025-07-24 04:40] LABS: Chloride 100 mmol/L (98-107); Potassium 3.9 mmol/L (3.5-5.1); Sodium 138 mmol/L (136-145)
[2025-07-24 04:41] LABS: Anion Gap 8 (5-15); Carbon Dioxide 30 mmol/L (20-31)
[2025-07-24 04:42] LABS: Calcium 9.7 mg/dL (8.7-10.4)
[2025-07-24 04:46] LABS: BUN/Creatinine Ratio 12.5 (10.0-20.0); Blood Urea Nitrogen 9 mg/dL (9-23)
[2025-07-24 04:54] LABS: Glucose 219 mg/dL (74-106)
[2025-07-24] MEDS: ACCU-CHEK COMFORT CURVE STRIP VI SCH (06:45)
[2025-07-24] MEDS: InsuLIN REG 1unit/0.01ml Soln (100units/ml) SC SCH ×2 (07:01→22:08)
--- NOTE | 2025-07-24 10:30 | DVHINCON2 ---
Date of service: Jul 24, 2025 Referring Physician RACHEL HAZEL MD Reason for Consultation Recurrent UTI History of Present Illness Patient is 70-year-old female with past medical history of hypertension and poorly controlled DM, who presents with worsening urinary symptoms over the p ast 3 weeks. She initially developed urinary complaints in February of 2025 and has been under Urology follow up since then. The patient was evaluated in the Emergency department on July 14, 2025 at which she was prescribed ciprofloxacin. Patient endorses that she took her home prescription as ordered. Patient has also been on a continuous Keflex regimen per Urology. She states that she also went to [facility] urgent care and was treated with IV Rocephin. Currently, she reports generalized weakness, poor appetite, nausea, abdominal pain and hematuria. She denies fevers, chills, shortness of breath, chest pain, palpitations, leg swelling. Infectious disease service consulted for evaluation of recurrent UTI Past Medical History Cardiovascular: HTN Endocrine: Diabetes Family History: Diabetes mellitus G8 MOTHER G8 FATHER Hypertension G8 MOTHER G8 FATHER Social History Smoke: No ALCOHOL: none Drugs: None Lives: with Family Allergies: Coded Allergies: Azithromycin (Verified Allergy, Unknown, 09/15/24) Cyclobenzaprine (Verified Allergy, Unknown, 02/05/25) Erythromycin (Verified Allergy, Unknown, rash, 02/08/25) Nitrofurantoin (Verified Allergy, Unknown, 02/05/25) Penicillins (Verified Allergy, Unknown, 02/05/25) Sulfa Antibiotics (Verified Allergy, Unknown, 02/05/25) Home Meds Active Scripts Acetaminophen (Acetaminophen) 500 Mg Tab, 500 MG PO Q4HP PRN, #30 TAB Prov:ROMI KUMAR [facility] 07/14/25 Ondansetron Odt 4MG Tab (ZOFRAN PO) 4 Mg Tb, 4 MG PO Q6HP PRN, #15 TAB ODT TAB-DISSOLVE IN MOUTH, THEN SWALLOW Prov:ROMI KUMAR [facility] 07/14/25 Ciprofloxacin Hcl (Cipro) 500 Mg Tab, 1 TAB PO BID for 10 Days, #20 TAB Prov:ROMI KUMAR 07/14/25 Ondansetron Odt 4MG Tab (ZOFRAN PO) 4 Mg Tb, 4 MG SL QIDPRN, #20 TAB ODT TAB-DISSOLVE IN MOUTH, THEN SWALLOW Prov:BUCK MARTI MD 09/16/24 Reported Medications Cephalexin (KEFLEX CAPSULE) 250 Mg Cp, 250 MG PO DAILY 07/24/25 Sitagliptin Phosphate (Januvia) 100 Mg Tab, 1 TAB PO DAILY, #30 TAB 5 Refills 02/06/25 Atorvastatin Calcium (ATORVASTATIN CALCIUM) 20 Mg Tab, 1 TAB PO DAILY, #30 TAB 5 Refills 02/06/25 Lisinopril (Lisinopril) 20 Mg Tab, 1 TAB PO DAILY, #30 TAB 5 Refills 02/06/25 Trazodone HCl (Trazodone Hydrochloride) 50 Mg Tab, 50 MG PO HS, TAB 02/06/25 Levothyroxine Sodium (Levothyroxine Sodium) 175 Mcg Tab, 175 MCG PO QAM for 30 Days, MCG 02/06/25 Current Medications Current Medications Medications (Trade) Dose Ordered Sig/Tim Route PRN Reason Start Time Stop Time Status Last Admin Sodium Chloride 1,000 ml @ 75 mls/hr [id number] IV 07/24/25 00:15 07/24/25 01:29 Docusate Sodium (Colace Capsule) 100 mg BIDPRN PRN PO FOR CONSTIPATION 07/24/25 00:15 Acetaminophen (Tylenol Tablet) 650 mg Q6HP PRN PO PAIN SCALE 1-3 OR TEMP>100.4 07/24/25 00:15 Acetaminophen/ Hydrocodone Bitart ([place] 5/325MG Tab) 1 tab Q6HPRN PRN PO MODERATE PAIN (4-6 PAIN SCALE) 07/24/25 00:15 Ondansetron HCl (Zofran) 4 mg Q4HP PRN IV NAUSEA / VOMITING 07/24/25 00:15 Nitroglycerin (Ntrostat Sublingual) 0.4 mg Q5MINP PRN SL FOR CHEST PAIN 07/24/25 00:15 Morphine Sulfate 2 mg Q30M PRN IV FOR CHEST PAIN 07/24/25 00:15 Diagnostic Test (Pha) (Accu-Chek Comfort Curve T) 1 strip ACHS 07/24/25 07:00 07/24/25 06:45 Insulin Human Regular (InsuLIN R) HS SC 07/24/25 22:00 Insulin Human Regular (InsuLIN R) AC SC 07/24/25 07:00 07/24/25 07:01 Dextrose 50 ml UD PRN IV Blood Sugar LESS THAN 60 07/24/25 00:15 Ceftriaxone Sodium 50 ml @ 100 mls/hr DAILY IV 07/24/25 10:00 Review of Systems Constitutional: Yes: Weakness, Malaise; No: Fever, Chills, Sweats, Other Eyes: No: Pain, Vision change, Conjunctivae inflammation, Eyelid inflammation, Other, Redness ENT: No: Ear pain, Ear discharge, Nose pain, Nose discharge, Nose congestion, Mouth pain, Mouth swelling, Throat pain, Throat swelling, Other Respiratory: No: Cough, Dry, Shortness of breath, SOB with excertion, Wheezing, Hemoptysis, Pleuritic Pain, Sputum, Wheezing, Other Cardiovascular: No: Chest Pain, Palpitations, Orthopnea, Paroxysmal Noc. Dyspnea, Edema, Lt Headedness, Other Gastrointestinal: Nausea, Abdominal Pain; No: Vomiting, Diarrhea, Constipation, Melena, Hematochezia, Other Genitourinary: Dysuria; No Frequency, No Incontinence; Hematuria; No Retention, No Other Musculoskeletal: No: other, neck pain, shoulder pain, arm pain, back pain, hand pain, leg pain, foot pain Skin: No: Rash, Lesions, Jaundice, Bruising, Other Neurological: No: Weakness, Numbness, Incoordination, Change in speech, Confusion, Seizures, Other Vital Signs Vital Signs Date Time Temp Pulse Resp B/P (MAP) Pulse Ox O2 Delivery O2 Flow Rate FiO2 07/24/25 08:00 98.6 74 14 126/57 (80) 93 98.6 07/24/25 01:15 Room Air* 0 21 Physical Exam General Appearance: Alert, Oriented X3, moderate distress HEENT: Atraumatic, PERRLA, EOMI Respiratory: Clear to auscultation Cardiovascular: Regular rate, Normal S1, Normal S2 Abdominal: Normal bowel sounds, Soft Extremities: No clubbing, No cyanosis, No edema Skin: No rashes, No breakdown Neuro: Normal speech, Strength at 5/5 X4 ext Psych/Mental Status: Mental status NL, Mood NL Labs/Diagnostic Data Labs Test 07/24/25 04:00 07/23/25 19:39 Range/Units White Blood Count 8.5 4.4-10.8 10^3/uL Red Blood Count 4.25 4.0-5.20 10^6/uL Hemoglobin 11.9 L 12.2-16.2 g/dL Hematocrit 34.1 L 36.0-46.0 % Mean Corpuscular Volume 80.4 80.0-100.0 fL Mean Corpuscular Hemoglobin 28.0 28.0-32.0 pg Mean Corpuscular Hemoglobin Concent 34.8 32.0-36.0 g/dL Red Cell Distribution Width 14.7 H 11.8-14.3 % Platelet Count 260 140-450 10^3/uL Mean Platelet Volume 7.0 6.9-10.8 fL Neutrophils (%) (Auto) 65.3 37.0-80.0 % Lymphocytes (%) (Auto) 26.5 10.0-50.0 % Monocytes (%) (Auto) 6.2 0.0-12.0 % Eosinophils (%) (Auto) 1.7 0.0-7.0 % Basophils (%) (Auto) 0.3 0.0-2.0 % Neutrophils # (Auto) 5.6 1.6-8.6 10 ^3/uL Lymphocytes # (Auto) 2.3 0.4-5.4 10 ^3/uL Monocytes # (Auto) 0.5 0-1.3 10 ^3/uL Eosinophils # (Auto) 0.1 0-0.8 10 ^3/uL Basophils # (Auto) 0 0-0.2 10 ^3/uL Nucleated Red Blood Cells 0.1 % Sodium Level 138 136-145 mmol/L Potassium Level 3.9 3.5-5.1 mmol/L Chloride Level 100 98-107 mmol/L Carbon Dioxide Level 30 20-31 mmol/L Anion Gap 8 5-15 Blood Urea Nitrogen 9 9-23 mg/dL Creatinine 0.72 0.550-1.02 mg/dL Glomerular Filtration Rate Calc 91 >90 mL/min BUN/Creatinine Ratio 12.5 10.0-20.0 Serum Glucose 219 H 74-106 mg/dL Calcium Level 9.7 8.7-10.4 mg/dL Urine Color Colorless Yellow Urine Clarity Turbid H Clear Urine pH 5.5 5.0-9.0 Urine Specific [place] 1.015 1.001-1.035 Urine Protein Trace H Negative Urine Ketones 1+ H Negative Urine Blood Trace H Negative /uL Urine Nitrite Negative Negative Urine Bilirubin Negative Negative Urine Urobilinogen 2 H Negative mg/dL Urine Leukocyte Esterase 3+ Negative /uL Urine RBC 13 0 - 4 /hpf Urine WBC Clumps Present None Seen /hpf Urine Microscopic WBC 262 H 0-5 /HPF Urine Squamous Epithelial Cells Few <5 /hpf Urine Bacteria Many H None Seen /hpf Urine Mucus Many None Seen Urine Glucose 4+ H Normal mg/dL Assessment Patient is a 70years old female, presented to the hospital with Complicated UTI with failed outpatient treatment Uncontrolled DM with hyperglycemia Generalized weakness Recommendations: Patient is on Ceftriaxone sodium - IV, continue (Started on 07/23) Urine culture pending. CT of Abdomen and Pelvis revealed: No acute abdominopelvic abnormality. No evidence of perinephric abscess. 3.2 cm cystic right adnexal lesion, which may be further evaluated with a nonemergent pelvic ultrasound as clinically indicated. total time 80 minutes spent during encounter Thank you for the consult. Plan discussed with: MADIHA Kenny MD Jul 24, 2025 10:30
[2025-07-24] MEDS ORDERED: CEPH250C PO (13:31)
[2025-07-24] MEDS: MELATONIN 5 MG TAB PO ONE (22:10)
[2025-07-24] MEDS: HYDROcodone-ACET 5/325MG TAB PO PRN (22:11)
[2025-07-25 01:00] VITALS: BP 128/63; PULSE 76; RESP 18; TEMP 98.2; O2SAT 97
[2025-07-25 05:00] VITALS: BP 123/76; PULSE 63; RESP 18; TEMP 98.3; O2SAT 97
[2025-07-25] MEDS: LEVOTHYROXINE SODIUM 50 MCG TAB PO SCH (06:00)
[2025-07-25] MEDS ORDERED: LEVOTHYROXINE SODIUM 25 MCG TAB PO SCH (06:00)
[2025-07-25] MEDS: LEVOTHYROXINE SODIUM 25 MCG TAB PO SCH (06:11)
[2025-07-25] MEDS: LEVOTHYROXINE SODIUM 100 MCG TAB PO SCH (06:13)
[2025-07-25 07:30] LABS: Anion Gap 9 (5-15); Carbon Dioxide 28 mmol/L (20-31); Chloride 104 mmol/L (98-107); Potassium 4.0 mmol/L (3.5-5.1); Sodium 141 mmol/L (136-145)
[2025-07-25 07:31] LABS: Calcium 8.9 mg/dL (8.7-10.4); Hematocrit 31.5 % (36.0-46.0); Hemoglobin 11.0 g/dL (12.2-16.2); Mean Corpuscular Hemoglobin 28.2 pg (28.0-32.0); Mean Corpuscular Volume 80.5 fL (80.0-100.0); Nucleated Red Blood Cells % 0.1 %
[2025-07-25 07:35] LABS: BUN/Creatinine Ratio 19.6 (10.0-20.0); Blood Urea Nitrogen 11 mg/dL (9-23)
[2025-07-25 07:46] LABS: Glucose 148 mg/dL (74-106)
[2025-07-25] MEDS: ONDANSETRON HCL 4 MG/2 ML VIAL IV PRN (08:26)
[2025-07-25 08:43] VITALS: BP 139/77; PULSE 67; RESP 19; TEMP 98.2; O2SAT 100
[2025-07-25] MEDS: LISINOPRIL 20 MG TAB PO SCH (09:31)
--- NOTE | 2025-07-25 11:13 | DVHPN2 ---
Progress Note - Dictate Date Seen: Jul 25, 2025 Medical Necessity Reason Pt with a Central, PICC or Fol: No Subjective no new complaints vital signs Vital Sign Date Time Temp Pulse Resp B/P (MAP) Pulse Ox O2 Delivery O2 Flow Rate FiO2 07/25/25 09:31 139/77 07/25/25 08:43 98.2 67 19 100 98.2 07/24/25 20:00 Room Air* 0 21 Total Intake and Output 07/24/25 07/24/25 07/25/25 15:00 23:00 07:00 Intake Total 50 ml 100 ml 300 ml Balance 50 ml 100 ml 300 ml medications Current Medications Medications Dose Ordered Sig/Tim Route Start Time Stop Time Status Last Admin Dose Admin Sodium Chloride 1,000 ml @ 75 mls/hr [id number] IV 07/24/25 00:15 07/25/25 06:15 75 MLS/HR Docusate Sodium 100 mg BIDPRN PRN PO 07/24/25 00:15 Acetaminophen 650 mg Q6HP PRN PO 07/24/25 00:15 Acetaminophen/ Hydrocodone Bitart 1 tab Q6HPRN PRN PO 07/24/25 00:15 07/24/25 22:11 1 TAB Ondansetron HCl 4 mg Q4HP PRN IV 07/24/25 00:15 07/25/25 08:26 4 MG Nitroglycerin 0.4 mg Q5MINP PRN SL 07/24/25 00:15 Morphine Sulfate 2 mg Q30M PRN IV 07/24/25 00:15 Diagnostic Test (Pha) 1 strip ACHS 07/24/25 07:00 07/25/25 05:58 1 STRIP Insulin Human Regular HS SC 07/24/25 22:00 07/24/25 22:08 3 UNITS Insulin Human Regular AC SC 07/24/25 07:00 07/25/25 05:54 2 UNITS Dextrose 50 ml UD PRN IV 07/24/25 00:15 Ceftriaxone Sodium 50 ml @ 100 mls/hr DAILY IV 07/24/25 10:00 07/25/25 09:31 100 MLS/HR Atorvastatin Calcium 20 mg HS PO 07/25/25 22:00 Lisinopril 20 mg DAILY PO 07/25/25 10:00 07/25/25 09:31 20 MG Trazodone HCl 50 mg HS PO 07/24/25 22:00 Levothyroxine Sodium 100 mcg QAM@0600 PO 07/25/25 06:00 07/25/25 06:13 100 MCG Patient Own Medication 1 tab DAILY PO 07/25/25 10:00 Levothyroxine Sodium 50 mcg QAM@0600 PO 07/25/25 06:00 07/25/25 06:13 50 MCG Levothyroxine Sodium 25 mcg QAM@0600 PO 07/25/25 06:00 07/25/25 06:11 25 MCG objective General Appearance: Alert, Oriented X3, moderate distress HEENT: Atraumatic, PERRLA, EOMI Respiratory: Clear to auscultation Cardiovascular: Regular rate, Normal S1, Normal S2 Abdominal: Normal bowel sounds, Soft Extremities: No clubbing, No cyanosis, No edema Skin: No rashes, No breakdown Neuro: Normal speech, Strength at 5/5 X4 ext Psych/Mental Status: Mental status NL, Mood NL laboratory and microbiology Laboratory Tests 07/25/25 05:40 Test 07/25/25 05:40 Range/Units Serum Glucose 148 H 74-106 mg/dL Assessment/Plan Patient is a 70years old female, presented to the hospital with Complicated UTI with failed outpatient treatment gram negative rods in urine Uncontrolled DM with hyperglycemia Generalized weakness Recommendations: Patient is on Ceftriaxone sodium - IV, continue (Started on 07/23) Urine culture GNR: follow.. CT of Abdomen and Pelvis revealed: No acute abdominopelvic abnormality. No evidence of perinephric abscess. 3.2 cm cystic right adnexal lesion, which may be further evaluated with a nonemergent pelvic ultrasound as clinically indicated. Total time spent 50minutes during this encounter Thank you for the consult. Plan discussed with: MADIHA Kenny MD Jul 25, 2025 11:13
[2025-07-25 13:00] VITALS: BP 134/77; PULSE 68; RESP 16; TEMP 97.9; O2SAT 97
--- NOTE | 2025-07-25 14:51 | DVHPN2 ---
Progress Note - Dictate Date Seen: Jul 25, 2025 Medical Necessity Reason Pt with a Central, PICC or Fol: No Subjective Patient complains of an episode of nausea and some abdominal discomfort. Urine culture final results still pending. vital signs Vital Sign Date Time Temp Pulse Resp B/P (MAP) Pulse Ox O2 Delivery O2 Flow Rate FiO2 07/25/25 13:00 97.9 68 16 134/77 (96) 97 97.9 07/25/25 08:00 Room Air* 0 21 Total Intake and Output 07/24/25 07/24/25 07/25/25 15:00 23:00 07:00 Intake Total 50 ml 100 ml 300 ml Balance 50 ml 100 ml 300 ml medications Current Medications Medications Dose Ordered Sig/Tim Route Start Time Stop Time Status Last Admin Dose Admin Sodium Chloride 1,000 ml @ 75 mls/hr [id number] IV 07/24/25 00:15 07/25/25 06:15 75 MLS/HR Docusate Sodium 100 mg BIDPRN PRN PO 07/24/25 00:15 Acetaminophen 650 mg Q6HP PRN PO 07/24/25 00:15 Acetaminophen/ Hydrocodone Bitart 1 tab Q6HPRN PRN PO 07/24/25 00:15 07/24/25 22:11 1 TAB Ondansetron HCl 4 mg Q4HP PRN IV 07/24/25 00:15 07/25/25 12:42 4 MG Nitroglycerin 0.4 mg Q5MINP PRN SL 07/24/25 00:15 Morphine Sulfate 2 mg Q30M PRN IV 07/24/25 00:15 Diagnostic Test (Pha) 1 strip ACHS 07/24/25 07:00 07/25/25 11:30 1 STRIP Insulin Human Regular HS SC 07/24/25 22:00 07/24/25 22:08 3 UNITS Insulin Human Regular AC SC 07/24/25 07:00 07/25/25 11:30 9 UNITS Dextrose 50 ml UD PRN IV 07/24/25 00:15 Ceftriaxone Sodium 50 ml @ 100 mls/hr DAILY IV 07/24/25 10:00 07/25/25 09:31 100 MLS/HR Atorvastatin Calcium 20 mg HS PO 07/25/25 22:00 Lisinopril 20 mg DAILY PO 07/25/25 10:00 07/25/25 09:31 20 MG Trazodone HCl 50 mg HS PO 07/24/25 22:00 Levothyroxine Sodium 100 mcg QAM@0600 PO 07/25/25 06:00 07/25/25 06:13 100 MCG Patient Own Medication 1 tab DAILY PO 07/25/25 10:00 Levothyroxine Sodium 50 mcg QAM@0600 PO 07/25/25 06:00 07/25/25 06:13 50 MCG Levothyroxine Sodium 25 mcg QAM@0600 PO 07/25/25 06:00 07/25/25 06:11 25 MCG objective Alert awake oriented x3. HEENT neck supple no JVD. Heart regular rate and rhythm S1-S2. Lungs fair air movement without rales wheezes. Abdomen soft nontender nondistended positive bowel sounds obese. Extremities no edema positive pulses laboratory and microbiology Laboratory Tests 07/25/25 05:40 Test 07/25/25 05:40 Range/Units Serum Glucose 148 H 74-106 mg/dL Assessment/Plan I will add Protonix. Continue Zofran as needed. Continue current antibiotics till we have final urine culture results. Otherwise encouraged activity and ambulation. Discussed with the nurse/patient at bedside. Problems(with codes): (1) UTI (urinary tract infection) (2) Hyperglycemia Plan discussed with: Patient RACHEL HAZEL MD Jul 25, 2025 14:51
[2025-07-25 17:00] VITALS: BP 133/63; PULSE 57; RESP 19; TEMP 98.3; O2SAT 97
[2025-07-25 21:00] VITALS: BP 131/72; PULSE 67; RESP 16; TEMP 97; O2SAT 16; O2SAT 96; O2SAT 97
[2025-07-25] MEDS: PANTOPRAZOLE 40 MG/10 ML VIAL INJ IV SCH (22:32)
[2025-07-25] MEDS: ATORVASTATIN 20 MG TAB PO SCH (22:33)
[2025-07-26 01:00] VITALS: BP 125/65; PULSE 58; RESP 16; TEMP 96.5; O2SAT 97
[2025-07-26 04:57] VITALS: BP 138/72; PULSE 60; RESP 18; TEMP 96.3; O2SAT 98
[2025-07-26 07:59] LABS: Hematocrit 32.5 % (36.0-46.0); Hemoglobin 11.2 g/dL (12.2-16.2); Mean Corpuscular Hemoglobin 27.9 pg (28.0-32.0); Mean Corpuscular Volume 81.1 fL (80.0-100.0); Nucleated Red Blood Cells % 0.1 %
[2025-07-26 08:12] LABS: Alanine Aminotransferase 19 U/L (7-40); Albumin 3.5 g/dL (3.2-4.8); Alkaline Phosphatase 88 U/L (46-116); Anion Gap 10 (5-15); BUN/Creatinine Ratio 16.0 (10.0-20.0); Blood Urea Nitrogen 12 mg/dL (9-23); Calcium 8.7 mg/dL (8.7-10.4); Carbon Dioxide 28 mmol/L (20-31); Chloride 104 mmol/L (98-107); Potassium 4.1 mmol/L (3.5-5.1); Sodium 142 mmol/L (136-145); Total Protein 6.0 g/dL (5.7-8.2)
[2025-07-26 08:13] LABS: Bilirubin, Total 0.5 mg/dL (0.2-1.0)
[2025-07-26 08:41] LABS: Glucose 161 mg/dL (74-106)
[2025-07-26 09:00] VITALS: BP 139/60; PULSE 60; RESP 18; TEMP 97.9; O2SAT 97
--- NOTE | 2025-07-26 10:09 | DVHINCON2 ---
Date of service: Jul 26, 2025 Referring Physician hospitalist History of Present Illness History Source: Patient, Old Records Exam Limitations: No limitations HPI 70 yo female known to urology service for recurrent UTIs. Patient underwent cystoscopy with biopsy of suspicious lesions on 02/08/2025. 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 She has had multiple Urinary tract infections in the recent past.CT A/P NC was negative for findings.Multiple cultures positive in the past few months, ESBL E coli. She is on daily keflex. She had a phone consult with ID but expresses nothing was done. In office 07/23/25 for f/u she stated she has been feeling ill for two weeks. no appetite and vomiting, she was advised to seek ER evaluation if not improved. Urine culture 12/13/24 E Coli ESBL, 01/24/25 E Coli ESBL, 06/22/25 E Coli ESBL Home Meds Active Scripts Acetaminophen (Acetaminophen) 500 Mg Tab, 500 MG PO Q4HP PRN, #30 TAB Prov:ROMI KUMAR PAC 07/14/25 Ondansetron Odt 4MG Tab (ZOFRAN PO) 4 Mg Tb, 4 MG PO Q6HP PRN, #15 TAB ODT TAB-DISSOLVE IN MOUTH, THEN SWALLOW Prov:ROMI KUMAR [facility] 07/14/25 Ciprofloxacin Hcl (Cipro) 500 Mg Tab, 1 TAB PO BID for 10 Days, #20 TAB Prov:ROMI KUMAR [facility] 07/14/25 Ondansetron Odt 4MG Tab (ZOFRAN PO) 4 Mg Tb, 4 MG SL QIDPRN, #20 TAB ODT TAB-DISSOLVE IN MOUTH, THEN SWALLOW Prov:BUCK MARTI MD 09/16/24 Reported Medications Cephalexin (KEFLEX CAPSULE) 250 Mg Cp, 250 MG PO DAILY 07/24/25 Sitagliptin Phosphate (Januvia) 100 Mg Tab, 1 TAB PO DAILY, #30 TAB 5 Refills 02/06/25 Atorvastatin Calcium (ATORVASTATIN CALCIUM) 20 Mg Tab, 1 TAB PO DAILY, #30 TAB 5 Refills 02/06/25 Lisinopril (Lisinopril) 20 Mg Tab, 1 TAB PO DAILY, #30 TAB 5 Refills 02/06/25 Trazodone HCl (Trazodone Hydrochloride) 50 Mg Tab, 50 MG PO HS, TAB 02/06/25 Levothyroxine Sodium (Levothyroxine Sodium) 175 Mcg Tab, 175 MCG PO QAM for 30 Days, MCG 02/06/25 Past Medical History Renal/: UTI Patient Family History: Diabetes mellitus G8 MOTHER G8 FATHER, Hypertension G8 MOTHER G8 FATHER, Smoker: No Hx (Negative) Alocohol: None Drugs: None Domestic Violence: Neg Review of Systems Gastrointestinal: Nausea, Vomiting, Abdominal Pain H&P Exam Vital Signs Vital Signs Date Time Temp Pulse Resp B/P (MAP) Pulse Ox O2 Delivery O2 Flow Rate FiO2 07/26/25 09:42 139/60 07/26/25 09:00 97.9 60 18 97 97.9 07/26/25 08:00 Room Air* 0 21 General Appeara: Well developed, Well nourished, Normal Appearance Pulmonary/Respiratory: Normal inspection, Normal breath sounds, Chest non- tender, Lungs clear Cardiovascular/Chest: Normal inspection, Regular rate, Normal Rhythm Neuro/Mental St: Alert, Oriented Appearance: Appropriate appearance, Appropriate insight Eye contact/ Speech: Cooperative, Good eye contact, Normal speech Skin Exam: Normal inspection, Normal color, Warm/dry Labs/Xrays [place] [address] Ph: [phone] DIAGNOSTIC IMAGING Diagnostic Imaging Report : [id number] Signed PATIENT: STEFANIE ROLAND LACCT: [id number] UNIT: [id number] : 1955 LOC: ER ROOM / BED: / AGE / SEX: 70 / F ADM STATUS: REG ER SERVICE 24 ORDERING PHYSICIAN: AMOL ALONSO RESIDENT PROCEDURE(s): ABPLIV - CT AB PEL WITH IV CON ONLY REASON: Rule out perinephric abscess ORDER NUMBER(s): [id number], ACCESSION NUMBER(s): [id number] Exam: CT CT AB PEL WITH IV CON ONLY History: Rule out perinephric abscess Comparison Study: CT CT AB PEL WITH IV CON ONLY on DOS: 02/06/25, CT CT AB PEL WO CON-NO ORAL OR IV on DOS: 09/15/24 TECHNIQUE: A digital edge banding machine offbearer image was obtained. During the uneventful, intravenous administration of contrast material, multislice data acquisition was obtained through the abdomen and pelvis. The data set was subsequently reconstructed into multiplanar reformats. RADIATION DOSE: CTDI vol 19.0 mGy. DLP 1036.57 mGy.cm Findings: Lungs: Mild basilar atelectasis/scarring. Liver: Unremarkable. Spleen: Unremarkable. Pancreas: Unremarkable. Gallbladder: Prior cholecystectomy. Adrenals: Unremarkable Kidneys: Left renal cyst and additional too small to characterize renal lesions. No hydronephrosis. Pelvic Viscera: Prior hysterectomy. 3.2 cm cystic right adnexal lesion. Vasculature: Unremarkable. Retroperitoneum: Unremarkable. Bowel: Colonic diverticulosis without CT evidence of diverticulitis. No bowel obstruction. Musculoskeletal: Unremarkable. Soft tissues: Unremarkable Impression: 1. No acute abdominopelvic abnormality. No evidence of perinephric abscess. 2. 3.2 cm cystic right adnexal lesion, which may be further evaluated with a no nemergent pelvic ultrasound as clinically indicated. 3. Incidental findings as detailed. ATED BY: NORMA LOU MD DICTATED DATE/TIME: 07/23/252337 SIGNED BY: NORMA LOU MD SIGNED DATE/TIME: 07/23/252337 CC: Labs Test 07/26/25 06:45 07/26/25 05:01 07/23/25 19:39 Range/Units White Blood Count 5.8 4.4-10.8 10^3/uL Red Blood Count 4.01 4.0-5.20 10^6/uL Hemoglobin 11.2 L 12.2-16.2 g/dL Hematocrit 32.5 L 36.0-46.0 % Mean Corpuscular Volume 81.1 80.0-100.0 fL Mean Corpuscular Hemoglobin 27.9 L 28.0-32.0 pg Mean Corpuscular Hemoglobin Concent 34.4 32.0-36.0 g/dL Red Cell Distribution Width 14.8 H 11.8-14.3 % Platelet Count 232 140-450 10^3/uL Mean Platelet Volume 7.1 6.9-10.8 fL Neutrophils (%) (Auto) 56.5 37.0-80.0 % Lymphocytes (%) (Auto) 34.6 10.0-50.0 % Monocytes (%) (Auto) 5.9 0.0-12.0 % Eosinophils (%) (Auto) 2.8 0.0-7.0 % Basophils (%) (Auto) 0.2 0.0-2.0 % Neutrophils # (Auto) 3.3 1.6-8.6 10 ^3/uL Lymphocytes # (Auto) 2.0 0.4-5.4 10 ^3/uL Monocytes # (Auto) 0.3 0-1.3 10 ^3/uL Eosinophils # (Auto) 0.2 0-0.8 10 ^3/uL Basophils # (Auto) 0 0-0.2 10 ^3/uL Nucleated Red Blood Cells 0.1 % Sodium Level 142 136-145 mmol/L Potassium Level 4.1 3.5-5.1 mmol/L Chloride Level 104 98-107 mmol/L Carbon Dioxide Level 28 20-31 mmol/L Anion Gap 10 5-15 Blood Urea Nitrogen 12 9-23 mg/dL Creatinine 0.75 # 0.550-1.02 mg/dL Glomerular Filtration Rate Calc 87 >90 mL/min BUN/Creatinine Ratio 16.0 10.0-20.0 Serum Glucose 161 H 74-106 mg/dL Calcium Level 8.7 8.7-10.4 mg/dL Total Bilirubin 0.5 0.2-1.0 mg/dL Aspartate Amino Transferase (AST) 19 13-40 U/L Alanine Aminotransferase (ALT) 19 7-40 U/L Alkaline Phosphatase 88 46-116 U/L Total Protein 6.0 5.7-8.2 g/dL Albumin 3.5 3.2-4.8 g/dL POC Glucose 150 H 70-106 mg/dl Urine Color Colorless Yellow Urine Clarity Turbid H Clear Urine pH 5.5 5.0-9.0 Urine Specific [place] 1.015 1.001-1.035 Urine Protein Trace H Negative Urine Ketones 1+ H Negative Urine Blood Trace H Negative /uL Urine Nitrite Negative Negative Urine Bilirubin Negative Negative Urine Urobilinogen 2 H Negative mg/dL Urine Leukocyte Esterase 3+ Negative /uL Urine RBC 13 0 - 4 /hpf Urine WBC Clumps Present None Seen /hpf Urine Microscopic WBC 262 H 0-5 /HPF Urine Squamous Epithelial Cells Few <5 /hpf Urine Bacteria Many H None Seen /hpf Urine Mucus Many None Seen Urine Glucose 4+ H Normal mg/dL Microbiology Date/Time Source Procedure Growth Status 07/23/25 19:39 Voided Urine Urine Culture - Final Complete Assessment/Plan Problem List: (1) Gastroenteritis (2) Dizziness (3) Pyelonephritis (4) Urinary tract infection (5) Hyperglycemia (6) UTI (urinary tract infection) Plan urine culture IVF continue vaginal estrogen upon discharge outpt urology f/u as scheduled Plan discussed with: Patient, Other STEFANIE PORTER NP Jul 26, 2025 10:09
[2025-07-26 11:14] LABS: Lipase 31 U/L (12-53)
--- NOTE | 2025-07-26 11:42 | DVHPN2 ---
Progress Note - Dictate Date Seen: Jul 26, 2025 Medical Necessity Reason Pt with a Central, PICC or Fol: No Subjective no new complaints vital signs Vital Sign Date Time Temp Pulse Resp B/P (MAP) Pulse Ox O2 Delivery O2 Flow Rate FiO2 07/26/25 09:42 139/60 07/26/25 09:00 97.9 60 18 97 97.9 07/26/25 08:00 Room Air* 0 21 Total Intake and Output 07/25/25 07/25/25 07/26/25 15:00 23:00 07:00 Intake Total 50 ml 800 ml 480 ml Balance 50 ml 800 ml 480 ml medications Current Medications Medications Dose Ordered Sig/Tim Route Start Time Stop Time Status Last Admin Dose Admin Sodium Chloride 1,000 ml @ 75 mls/hr [id number] IV 07/24/25 00:15 07/25/25 22:48 75 MLS/HR Docusate Sodium 100 mg BIDPRN PRN PO 07/24/25 00:15 Acetaminophen 650 mg Q6HP PRN PO 07/24/25 00:15 Acetaminophen/ Hydrocodone Bitart 1 tab Q6HPRN PRN PO 07/24/25 00:15 07/26/25 09:42 1 TAB Ondansetron HCl 4 mg Q4HP PRN IV 07/24/25 00:15 07/25/25 12:42 4 MG Nitroglycerin 0.4 mg Q5MINP PRN SL 07/24/25 00:15 Morphine Sulfate 2 mg Q30M PRN IV 07/24/25 00:15 Diagnostic Test (Pha) 1 strip ACHS 07/24/25 07:00 07/26/25 10:58 1 STRIP Insulin Human Regular HS SC 07/24/25 22:00 07/25/25 22:29 3 UNITS Insulin Human Regular AC SC 07/24/25 07:00 07/26/25 10:58 6 UNITS Dextrose 50 ml UD PRN IV 07/24/25 00:15 Ceftriaxone Sodium 50 ml @ 100 mls/hr DAILY IV 07/24/25 10:00 07/26/25 10:00 100 MLS/HR Atorvastatin Calcium 20 mg HS PO 07/25/25 22:00 07/25/25 22:33 20 MG Lisinopril 20 mg DAILY PO 07/25/25 10:00 07/26/25 09:42 20 MG Trazodone HCl 50 mg HS PO 07/24/25 22:00 Levothyroxine Sodium 100 mcg QAM@0600 PO 07/25/25 06:00 07/26/25 05:31 100 MCG Patient Own Medication 1 tab DAILY PO 07/25/25 10:00 Levothyroxine Sodium 50 mcg QAM@0600 PO 07/25/25 06:00 07/26/25 05:31 50 MCG Levothyroxine Sodium 25 mcg QAM@0600 PO 07/25/25 06:00 07/26/25 05:31 25 MCG Pantoprazole Sodium 40 mg BID IV 07/25/25 22:00 07/26/25 10:00 40 MG objective General Appearance: Alert, Oriented X3, moderate distress HEENT: Atraumatic, PERRLA, EOMI Respiratory: Clear to auscultation Cardiovascular: Regular rate, Normal S1, Normal S2 Abdominal: Normal bowel sounds, Soft Extremities: No clubbing, No cyanosis, No edema Skin: No rashes, No breakdown Neuro: Normal speech, Strength at 5/5 X4 ext Psych/Mental Status: Mental status NL, Mood NL laboratory and microbiology Laboratory Tests 07/26/25 06:45 Test 07/26/25 06:45 Range/Units Serum Glucose 161 H 74-106 mg/dL Assessment/Plan Patient is a 70years old female, presented to the hospital with Complicated UTI with failed outpatient treatment gram negative rods in urine Uncontrolled DM with hyperglycemia Generalized weakness Recommendations: Patient is on Ceftriaxone sodium - IV, continue (Started on 07/23) Urine culture GNR: follow..prelim shows mixed abdirahman CT of Abdomen and Pelvis revealed: No acute abdominopelvic abnormality. No evidence of perinephric abscess. 3.2 cm cystic right adnexal lesion, which may be further evaluated with a nonemergent pelvic ultrasound as clinically indicated. Total time spent 50minutes during this encounter Thank you for the consult. Plan discussed with: MADIHA Kenny MD Jul 26, 2025 11:42
[2025-07-26 12:32] VITALS: BP 121/59; PULSE 59; RESP 16; TEMP 97.8; O2SAT 96
[2025-07-26] MEDS ORDERED: CEFD300C2 PO (12:52)
[2025-07-26] MEDS: ERTAPENEM SOD INJ 1 GM in SODIUM CHL 0.9% 50 ML IV ONE (13:15)
--- NOTE | 2025-07-26 14:55 | DVHPN2 ---
Progress Note - Dictate Date Seen: Jul 26, 2025 Medical Necessity Reason Pt with a Central, PICC or Fol: No Subjective Patient is clinically stable. Wants to go home. Urine cultures are growing mixed organisms. discussed with the Urology apparently patient has ESBL E coli on previous cultures done less than few weeks ago at urology office sensitive to ertapenem and imipenem.. vital signs Vital Sign Date Time Temp Pulse Resp B/P (MAP) Pulse Ox O2 Delivery O2 Flow Rate FiO2 07/26/25 12:32 97.8 59 16 121/59 (79) 96 97.8 07/26/25 08:00 Room Air* 0 21 Total Intake and Output 07/25/25 07/25/25 07/26/25 15:00 23:00 07:00 Intake Total 50 ml 800 ml 480 ml Balance 50 ml 800 ml 480 ml medications Current Medications Medications Dose Ordered Sig/Tim Route Start Time Stop Time Status Last Admin Dose Admin Sodium Chloride 1,000 ml @ 75 mls/hr [id number] IV 07/24/25 00:15 07/25/25 22:48 75 MLS/HR Docusate Sodium 100 mg BIDPRN PRN PO 07/24/25 00:15 Acetaminophen 650 mg Q6HP PRN PO 07/24/25 00:15 Acetaminophen/ Hydrocodone Bitart 1 tab Q6HPRN PRN PO 07/24/25 00:15 07/26/25 09:42 1 TAB Ondansetron HCl 4 mg Q4HP PRN IV 07/24/25 00:15 07/25/25 12:42 4 MG Nitroglycerin 0.4 mg Q5MINP PRN SL 07/24/25 00:15 Morphine Sulfate 2 mg Q30M PRN IV 07/24/25 00:15 Diagnostic Test (Pha) 1 strip ACHS 07/24/25 07:00 07/26/25 10:58 1 STRIP Insulin Human Regular HS SC 07/24/25 22:00 07/25/25 22:29 3 UNITS Insulin Human Regular AC SC 07/24/25 07:00 07/26/25 10:58 6 UNITS Dextrose 50 ml UD PRN IV 07/24/25 00:15 Ceftriaxone Sodium 50 ml @ 100 mls/hr DAILY IV 07/24/25 10:00 07/26/25 10:00 100 MLS/HR Atorvastatin Calcium 20 mg HS PO 07/25/25 22:00 07/25/25 22:33 20 MG Lisinopril 20 mg DAILY PO 07/25/25 10:00 07/26/25 09:42 20 MG Trazodone HCl 50 mg HS PO 07/24/25 22:00 Levothyroxine Sodium 100 mcg QAM@0600 PO 07/25/25 06:00 07/26/25 05:31 100 MCG Patient Own Medication 1 tab DAILY PO 07/25/25 10:00 Levothyroxine Sodium 50 mcg QAM@0600 PO 07/25/25 06:00 07/26/25 05:31 50 MCG Levothyroxine Sodium 25 mcg QAM@0600 PO 07/25/25 06:00 07/26/25 05:31 25 MCG Pantoprazole Sodium 40 mg BID IV 07/25/25 22:00 07/26/25 10:00 40 MG Ertapenem 1 gm/ Sodium Chloride 50 ml @ 100 mls/hr DAILY IV 07/27/25 10:00 objective Alert awake oriented x3. HEENT neck supple no JVD. Heart regular rate and rhythm S1-S2. Lungs fair air movement without rales wheezes. Abdomen soft nontender nondistended positive bowel sounds obese. Extremities no edema positive pulses laboratory and microbiology Laboratory Tests 07/26/25 06:45 Test 07/26/25 06:45 Range/Units Serum Glucose 161 H 74-106 mg/dL Assessment/Plan Based on prior cultures with sensitivities I will start her on Invanz. Discussed with the patient regarding cross-reactivity given she has allergy to penicillins however she tells me penicillin allergy is mild with the nausea that was many many years ago. I told her we can always treat with a nausea medication, steroids and antihistamines if she has any adverse reaction. Patient willing to try the Invanz given all the other already other antibiotics she tried so far orally did not work. I will get a midline placed today and start her on Invanz monitor overnight. If patient's does well can be discharged home in a.m. with seven days of antibiotics at home with home health. Discussed with the patient at length along with the nurse at bedside regarding care plan. Problems(with codes): (1) Urinary tract infection (2) Gastroenteritis Plan discussed with: Patient, Other RACHEL HAZEL MD Jul 26, 2025 14:55
[2025-07-26 17:00] VITALS: BP 126/71; PULSE 59; RESP 18; TEMP 98.3; O2SAT 96
[2025-07-26] MEDS ORDERED: ARTIFICIAL TEARS 15ml EACHEYE PRN (19:15)
[2025-07-26 21:00] VITALS: BP 144/73; PULSE 57; RESP 18; TEMP 98.6; O2SAT 99
[2025-07-26] MEDS: ACETAMINOPHEN 325 MG TAB PO PRN (21:30)
[2025-07-27 01:00] VITALS: BP 137/73; PULSE 99; RESP 18; TEMP 98.2; O2SAT 99
[2025-07-27 05:00] VITALS: BP 135/73; PULSE 70; RESP 18; TEMP 97.8; O2SAT 94
[2025-07-27 08:30] VITALS: BP 137/64; PULSE 62; RESP 17; TEMP 98; O2SAT 96
[2025-07-27] MEDS: ERTAPENEM SOD INJ 1 GM in SODIUM CHL 0.9% 50 ML IV SCH (09:48)
[2025-07-27] MEDS: DOCUSATE SOD 100 MG CAP PO PRN (09:57)
--- NOTE | 2025-07-27 11:58 | DVHPN2 ---
Progress Note - Dictate Date Seen: Jul 27, 2025 Medical Necessity Reason Pt with a Central, PICC or Fol: No Subjective No new complaints. patient is clinically stable. vital signs Vital Sign Date Time Temp Pulse Resp B/P (MAP) Pulse Ox O2 Delivery O2 Flow Rate FiO2 07/27/25 09:58 142/72 07/27/25 08:30 98.0 62 17 96 98.0 07/27/25 08:28 Room Air* 0 21 Total Intake and Output 07/26/25 07/26/25 07/27/25 15:00 23:00 07:00 Intake Total 800 ml 1220 ml Balance 800 ml 1220 ml medications Current Medications Medications Dose Ordered Sig/Tim Route Start Time Stop Time Status Last Admin Dose Admin Sodium Chloride 1,000 ml @ 75 mls/hr [id number] IV 07/24/25 00:15 07/27/25 06:08 75 MLS/HR Docusate Sodium 100 mg BIDPRN PRN PO 07/24/25 00:15 07/27/25 09:57 100 MG Acetaminophen 650 mg Q6HP PRN PO 07/24/25 00:15 07/27/25 09:58 650 MG Acetaminophen/ Hydrocodone Bitart 1 tab Q6HPRN PRN PO 07/24/25 00:15 07/26/25 09:42 1 TAB Ondansetron HCl 4 mg Q4HP PRN IV 07/24/25 00:15 07/26/25 15:20 4 MG Nitroglycerin 0.4 mg Q5MINP PRN SL 07/24/25 00:15 Morphine Sulfate 2 mg Q30M PRN IV 07/24/25 00:15 Diagnostic Test (Pha) 1 strip ACHS 07/24/25 07:00 07/27/25 11:31 1 STRIP Insulin Human Regular HS SC 07/24/25 22:00 07/26/25 21:33 3 UNITS Insulin Human Regular AC SC 07/24/25 07:00 07/27/25 11:37 9 UNITS Dextrose 50 ml UD PRN IV 07/24/25 00:15 Ceftriaxone Sodium 50 ml @ 100 mls/hr DAILY IV 07/24/25 10:00 07/27/25 10:22 100 MLS/HR Atorvastatin Calcium 20 mg HS PO 07/25/25 22:00 07/26/25 21:21 20 MG Lisinopril 20 mg DAILY PO 07/25/25 10:00 07/27/25 09:58 20 MG Trazodone HCl 50 mg HS PO 07/24/25 22:00 Levothyroxine Sodium 100 mcg QAM@0600 PO 07/25/25 06:00 07/27/25 06:09 100 MCG Patient Own Medication 1 tab DAILY PO 07/25/25 10:00 Levothyroxine Sodium 50 mcg QAM@0600 PO 07/25/25 06:00 07/27/25 06:09 50 MCG Levothyroxine Sodium 25 mcg QAM@0600 PO 07/25/25 06:00 07/27/25 06:09 25 MCG Pantoprazole Sodium 40 mg BID IV 07/25/25 22:00 07/27/25 09:54 40 MG Ertapenem 1 gm/ Sodium Chloride 50 ml @ 100 mls/hr DAILY IV 07/27/25 10:00 07/27/25 09:48 100 MLS/HR Artificial Tears 1 drop Q2HP PRN EACHEYE 07/26/25 19:15 objective General Appearance: Alert, Oriented X3, moderate distress HEENT: Atraumatic, PERRLA, EOMI Respiratory: Clear to auscultation Cardiovascular: Regular rate, Normal S1, Normal S2 Abdominal: Normal bowel sounds, Soft Extremities: No clubbing, No cyanosis, No edema Skin: No rashes, No breakdown Neuro: Normal speech, Strength at 5/5 X4 ext Psych/Mental Status: Mental status NL, Mood NL laboratory and microbiology Laboratory Tests 07/26/25 06:45 Test 07/26/25 06:45 Range/Units Serum Glucose 161 H 74-106 mg/dL Assessment/Plan Patient is a 70years old female, presented to the hospital with Complicated UTI with failed outpatient treatment gram negative rods in urine Uncontrolled DM with hyperglycemia Generalized weakness Recommendations: Urine culture GNR: follow..prelim shows mixed abdirahman outpatient cultures were ESBL hence abx are switched to Invanz and midline is being placed CT of Abdomen and Pelvis revealed: No acute abdominopelvic abnormality. No evidence of perinephric abscess. 3.2 cm cystic right adnexal lesion, which may be further evaluated with a nonemergent pelvic ultrasound as clinically indicated. Total time spent 50minutes during this encounter Thank you for the consult. Plan discussed with: Other MALLAD,MADIHA V MD Jul 27, 2025 11:58
[2025-07-27 12:30] VITALS: BP 150/70; PULSE 65; RESP 17; TEMP 99.2; O2SAT 96
--- NOTE | 2025-07-27 15:47 | DVHDS2 ---
Discharge Summary Date of Admission Jul 24, 2025 at 00:01 Date of Discharge: Jul 27, 2025 Labs/Diagnostic Data: Laboratory Results Test 07/27/25 11:20 07/26/25 06:45 07/23/25 19:39 POC Glucose 280 mg/dl (70-106) White Blood Count 5.8 10^3/uL (4.4-10.8) Red Blood Count 4.01 10^6/uL (4.0-5.20) Hemoglobin 11.2 g/dL (12.2-16.2) Hematocrit 32.5 % (36.0-46.0) Mean Corpuscular Volume 81.1 fL (80.0-100.0) Mean Corpuscular Hemoglobin 27.9 pg (28.0-32.0) Mean Corpuscular Hemoglobin Concent 34.4 g/dL (32.0-36.0) Red Cell Distribution Width 14.8 % (11.8-14.3) Platelet Count 232 10^3/uL (140-450) Mean Platelet Volume 7.1 fL (6.9-10.8) Neutrophils (%) (Auto) 56.5 % (37.0-80.0) Lymphocytes (%) (Auto) 34.6 % (10.0-50.0) Monocytes (%) (Auto) 5.9 % (0.0-12.0) Eosinophils (%) (Auto) 2.8 % (0.0-7.0) Basophils (%) (Auto) 0.2 % (0.0-2.0) Neutrophils # (Auto) 3.3 10 ^3/uL (1.6-8.6) Lymphocytes # (Auto) 2.0 10 ^3/uL (0.4-5.4) Monocytes # (Auto) 0.3 10 ^3/uL (0-1.3) Eosinophils # (Auto) 0.2 10 ^3/uL (0-0.8) Basophils # (Auto) 0 10 ^3/uL (0-0.2) Nucleated Red Blood Cells 0.1 % Sodium Level 142 mmol/L (136-145) Potassium Level 4.1 mmol/L (3.5-5.1) Chloride Level 104 mmol/L (98-107) Carbon Dioxide Level 28 mmol/L (20-31) Anion Gap 10 (5-15) Blood Urea Nitrogen 12 mg/dL (9-23) Creatinine 0.75 mg/dL (0.550-1.02) Glomerular Filtration Rate Calc 87 mL/min (>90) BUN/Creatinine Ratio 16.0 (10.0-20.0) Serum Glucose 161 mg/dL (74-106) Calcium Level 8.7 mg/dL (8.7-10.4) Total Bilirubin 0.5 mg/dL (0.2-1.0) Aspartate Amino Transferase (AST) 19 U/L (13-40) Alanine Aminotransferase (ALT) 19 U/L (7-40) Alkaline Phosphatase 88 U/L (46-116) Total Protein 6.0 g/dL (5.7-8.2) Albumin 3.5 g/dL (3.2-4.8) Lipase 31 U/L (12-53) Urine Color Colorless (Yellow) Urine Clarity Turbid (Clear) Urine pH 5.5 (5.0-9.0) Urine Specific [place] 1.015 (1.001-1.035) Urine Protein Trace (Negative) Urine Ketones 1+ (Negative) Urine Blood Trace /uL (Negative) Urine Nitrite Negative (Negative) Urine Bilirubin Negative (Negative) Urine Urobilinogen 2 mg/dL (Negative) Urine Leukocyte Esterase 3+ /uL (Negative) Urine RBC 13 /hpf (0 - 4) Urine WBC Clumps Present /hpf (None Seen) Urine Microscopic WBC 262 /HPF (0-5) Urine Squamous Epithelial Cells Few /hpf (<5) Urine Bacteria Many /hpf (None Seen) Urine Mucus Many (None Seen) Urine Glucose 4+ mg/dL (Normal) Other Laboratory Tests 07/26/25 06:45 Brief Hx & Hospital Course: 70-year-old female with a known history of diabetes mellitus type 2, hypertension, dyslipidemia, hypothyroidism, chronic insomnia L presented to hospital with. Outpatient treatment was sent by Urology for urinary tract infection treatment. Patient's past started on Invanz as patient's urine culture was showing ESBL in the outpatient setting which are sensitive to Invanz and meropenem. Patient will be arranged for IV antibiotics seen wants BUN g IV daily for seven more days. Patient is being discharged under stable condition. Condition at Discharge: Stable Final Diagnosis/Problems List 1. Recurrent urinary tract infection with a failed outpatient treatment 2. ESBL urinary tract infection next 4. diabetes mellitus type 2 5. hypertension 6. Chronic insomnia Discharge Disposition: Home with Health Services SNF Discharge Will this Physician continue t: No Discharge Instruct/Medications Diet: Cardiac 2g Na,low cholest Diet comment: 1800 ADA diet Activity: No Restrictions, As Tolerated Follow Up/Referral: Please follow up with the PCP in 1-2 weeks. Medications: Medication as prescribed, IV antibiotics Invanz for seven more days. Continued Medications: Acetaminophen (Acetaminophen) 500 Mg Tab 500 MG PO Q4HP PRN, #30 TAB Atorvastatin Calcium (Atorvastatin Calcium) 20 Mg Tab 1 TAB PO DAILY, #30 TAB 5 Refills Levothyroxine Sodium (Levothyroxine Sodium) 175 Mcg Tab 175 MCG PO QAM for 30 Days, MCG Lisinopril (Lisinopril) 20 Mg Tab 1 TAB PO DAILY, #30 TAB 5 Refills Ondansetron Odt 4MG Tab (Zofran Po) 4 Mg Tb 4 MG SL QIDPRN, #20 TAB ODT TAB-DISSOLVE IN MOUTH, THEN SWALLOW Ondansetron Odt 4MG Tab (Zofran Po) 4 Mg Tb 4 MG PO Q6HP PRN, #15 TAB ODT TAB-DISSOLVE IN MOUTH, THEN SWALLOW Sitagliptin Phosphate (Januvia) 100 Mg Tab 1 TAB PO DAILY, #30 TAB 5 Refills Trazodone HCl (Trazodone Hydrochloride) 50 Mg Tab 50 MG PO HS, TAB Discontinued Medications: Cephalexin (Keflex Capsule) 250 Mg Cp 250 MG PO DAILY Ciprofloxacin Hcl (Cipro) 500 Mg Tab 1 TAB PO BID for 10 Days, #20 TAB Scheduled Atorvastatin Calcium (Atorvastatin Calcium), 1 TAB PO DAILY, (Reported) Cephalexin (Keflex Capsule), 250 MG PO DAILY, (Reported) Ciprofloxacin Hcl (Cipro), 1 TAB PO BID Levothyroxine Sodium (Levothyroxine Sodium), 175 MCG PO QAM, (Reported) Lisinopril (Lisinopril), 1 TAB PO DAILY, (Reported) Ondansetron Odt 4MG Tab (Zofran Po), 4 MG SL QIDPRN Sitagliptin Phosphate (Januvia), 1 TAB PO DAILY, (Reported) Trazodone HCl (Trazodone Hydrochloride), 50 MG PO HS, (Reported) Scheduled PRN Acetaminophen (Acetaminophen), 500 MG PO Q4HP PRN Ondansetron Odt 4MG Tab (Zofran Po), 4 MG PO Q6HP PRN Discharge Statement: "Patient was advised to return to the ER or call 911 if any headaches, dizziness, shortness of breath, chest pain, abdominal pain, bleeding, fevers, or worsening of medical condition. Patient was counseled about treatment plan, medications, possible side effects, patientverbalized understanding. All questions were answered to the best of my ability. This discharge took greater then 30 minutes in planning, reviewing documentation, counseling the patient, and discussing with other team members." ASSESSMENT ASSESSMENT Assessment 1. Recurrent urinary tract infection with a failed outpatient treatment 2. ESBL urinary tract infection next 4. diabetes mellitus type 2 5. hypertension 6. Chronic insomnia Date of Service: Jul 27, 2025 Billing Provider: WILLY OCAMPO MD Common Visit Codes: NOT BILLABLE WILLY OCAMPO MD Jul 27, 2025 15:47
[2025-07-27 16:28] VITALS: BP 142/72; TEMP 37.3
== END 2025-07-27 17:05 | disposition home health service (06) | DRG 690 ==
LOC: ER 17:42 → OVERFLOW 07-24 00:01 → WEST WING 07-24 14:53
PROVIDERS: ADMIT Internal Medicine; ATTEND Internal Medicine
PROC: 05HD33Z Insertion of Infusion Device into Right Cephalic Vein, Percutaneous Approach (ICD-10-PCS; principal; 2025-07-26)
PROC: B54MZZA Ultrasonography of Right Upper Extremity Veins, Guidance (ICD-10-PCS; 2025-07-26)
DX: N39.0 Urinary tract infection, site not specified (principal); Z16.12 Extended spectrum beta lactamase (ESBL) resistance; A04.9 Bacterial intestinal infection, unspecified; E11.65 Type 2 diabetes mellitus with hyperglycemia; E78.5 Hyperlipidemia, unspecified; I10 Essential (primary) hypertension; F51.04 Psychophysiologic insomnia; E03.9 Hypothyroidism, unspecified; Z79.899 Other long term (current) drug therapy; Z90.710 Acquired absence of both cervix and uterus; Z88.1 Allergy status to other antibiotic agents; Z88.0 Allergy status to penicillin; Z90.49 Acquired absence of other specified parts of digestive tract; Z87.440 Personal history of urinary (tract) infections; Z83.3 Family history of diabetes mellitus; Z82.49 Family history of ischemic heart disease and other diseases of the circulatory system; Z79.84 Long term (current) use of oral hypoglycemic drugs; Z87.442 Personal history of urinary calculi
CPT/HCPCS: 36415; 74177; 80048; 80053; 82962; 83690; 85025; 87086; G0378; J1335; J1815; J2405; J2470

== ENCOUNTER 2025-07-30 14:41 | Emergency (ER) | payer OTHER, MEDICAID ==
[~2025-07-30] VITALS: Ht 167.6 cm; Wt 73.3 kg
[~2025-07-30 14:41] MED LIST changes: -CIPR-173 PO
--- NOTE | 2025-07-30 15:28 | ED.PDOC ---
History of Present Illness HPI Comments Ms. Valdez is a 70 year old female with PMHx of type 2 diabetes mellitus, hypertension, hyperlipidemia, cholelithiasis, and UTIs, who was sent today from the discharge clinic for evaluation due to elevated blood sugar and weakness. The patient was discharged on 07/27/2025 where she was admitted for a UTI. She was discharged on IV ertapenem, of which she has received 3 doses, the most recent being today. Additionally states that she had blood drawn today at home for follow up of IV treatment. Currently states she is well, except for some fatigue. On evaluation, the patient seemed well, blood pressure was 175/82 mmHg, other vitals were stable. Chief Complaint: Urinary Time Seen by MD: 14:44 Primary Care Provider: Dr. Alicia Allergies: Coded Allergies: Cyclobenzaprine (Verified Allergy, Unknown, 02/05/25) Erythromycin (Verified Allergy, Unknown, rash, 02/08/25) Nitrofurantoin (Verified Allergy, Unknown, 02/05/25) Penicillins (Verified Allergy, Unknown, 02/05/25) Sulfa Antibiotics (Verified Allergy, Unknown, 02/05/25) Home Meds Active Scripts Acetaminophen (Acetaminophen) 500 Mg Tab, 500 MG PO Q4HP PRN, #30 TAB Prov:ROMI KUMAR 07/14/25 Ondansetron Odt 4MG Tab (ZOFRAN PO) 4 Mg Tb, 4 MG PO Q6HP PRN, #15 TAB ODT TAB-DISSOLVE IN MOUTH, THEN SWALLOW Prov:ROMI KUMAR 07/14/25 Ondansetron Odt 4MG Tab (ZOFRAN PO) 4 Mg Tb, 4 MG SL QIDPRN, #20 TAB ODT TAB-DISSOLVE IN MOUTH, THEN SWALLOW Prov:BUCK MARTI MD 09/16/24 Reported Medications Sitagliptin Phosphate (Januvia) 100 Mg Tab, 1 TAB PO DAILY, #30 TAB 5 Refills 02/06/25 Atorvastatin Calcium (ATORVASTATIN CALCIUM) 20 Mg Tab, 1 TAB PO DAILY, #30 TAB 5 Refills 02/06/25 Lisinopril (Lisinopril) 20 Mg Tab, 1 TAB PO DAILY, #30 TAB 5 Refills 02/06/25 Trazodone HCl (Trazodone Hydrochloride) 50 Mg Tab, 50 MG PO HS, TAB 02/06/25 Levothyroxine Sodium (Levothyroxine Sodium) 175 Mcg Tab, 175 MCG PO QAM for 30 Days, MCG 02/06/25 Discontinued Reported Medications Cephalexin (KEFLEX CAPSULE) 250 Mg Cp, 250 MG PO DAILY 07/24/25 Discontinued Scripts Ciprofloxacin Hcl (Cipro) 500 Mg Tab, 1 TAB PO BID for 10 Days, #20 TAB Prov:ROMI KUMAR PAC 07/14/25 Information Source: Patient Mode of Arrival: Ambulatory Severity: None Timing: Hours Duration: Hours Past Medical History PAST MEDICAL HISTORY: DM, High Lipids, HTN, Kidney Stones, UTI'S Surgical History: Appendectomy, Cholecystectomy, Hysterectomy, Tonsillectomy 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: Uterine Fibroids Family History Family History: Reviewed,noncontributory to illness Social History Smoker: Non-Smoker Alcohol: Denies ETOH Use Drugs: Denies Drug Use Lives In: Home Constitutional: reports: fatigue; denies: chills, diaphoresis, fever, malaise, sweats, weakness EENTM: reports: photophobia; denies: blurred vision, double vision, ear bleeding, ear discharge, ear drainage, ear pain, eye pain, hearing loss, nasal discharge, nose bleeding, nose congestion, nose pain, throat pain, throat swelling Respiratory: denies: cough, hemoptysis, orthopnea, shortness of breath Cardiovascular: denies: chest pain, dizzy spells, diaphoresis, Dyspnea on exertion, edema, irregular heart beat, lightheadedness, palpitations Gastrointestinal: denies: abdomen distended, abdominal pain, diarrhea, dysphagia, difficulty swallowing, hematemesis, melena, nausea, rectal bleeding, rectal pain, vomiting Genitourinary: denies: burning, dysuria, flank pain, frequency, hematuria, incontinence, pain, urgency Neurological: denies: dizziness, fainting, headache, left sided weakness, numbness, seizure Musculoskeletal: denies: back pain, joint pain, joint swelling, muscle pain, muscle stiffness, neck pain Integumetry: reports: bruises (Secondary to recent blood draw ) Physical Exam General Appearance: Normal HEENT: Normal ENT Inspection, PERRL/EOMI, Pharynx Normal Neck: Full Range of Motion, Non-Tender, Normal Inspection Respiratory: Chest Non-Tender, No Accessory Muscle Use, No Respiratory Distress, Normal Breath Sounds Cardiovascular: No Edema, No Murmur, Normal Peripheral Pulses, Regular Rate/Rhythm Breast Exam: Deferred Gastrointestinal: Non Tender, No Pulsatile Mass, Normal Bowel Sounds, Soft Genitalia: Deferred Pelvic: Deferred Rectal: Deferred Extremities: Normal capillary refill, Normal inspection, Normal range of motion, Non-tender, No pedal edema Neurologic: No Motor Deficits, Normal Affect, Normal Mood Cerebellar Function: Normal Reflexes: NOT DONE Skin: Bruises (In left forearm ) Lymphatic: No Adenopathy Was a procedure done? Was a procedure done?: No Differential Dx Considerations may include: UTI, pyelonephritis, muscle strain, generalized weakness X-Ray, Labs, Meds, VS Vital Signs Date Time Temp Pulse Resp B/P (MAP) Pulse Ox O2 Delivery O2 Flow Rate FiO2 07/30/25 14:45 97.4 73 16 175/82 98 97.4 Lab Test 07/30/25 16:23 07/30/25 16:05 Range/Units Urine Color Light-yellow Yellow Urine Clarity Turbid H Clear Urine pH 5.0 5.0-9.0 Urine Specific [place] 1.013 1.001-1.035 Urine Protein Negative Negative Urine Ketones Negative Negative Urine Blood Negative Negative /uL Urine Nitrite Negative Negative Urine Bilirubin Negative Negative Urine Urobilinogen Normal Negative mg/dL Urine Leukocyte Esterase 2+ Negative /uL Urine RBC 3 0 - 4 /hpf Urine Microscopic WBC 33 H 0-5 /HPF Urine Squamous Epithelial Cells Mod <5 /hpf Urine Bacteria None seen None Seen /hpf Urine Yeast (Budding) Occasional None Seen /hpf Urine Glucose 2+ H Normal mg/dL White Blood Count 6.5 4.4-10.8 10^3/uL Red Blood Count 4.34 4.0-5.20 10^6/uL Hemoglobin 12.1 L 12.2-16.2 g/dL Hematocrit 35.1 L 36.0-46.0 % Mean Corpuscular Volume 80.9 80.0-100.0 fL Mean Corpuscular Hemoglobin 27.9 L 28.0-32.0 pg Mean Corpuscular Hemoglobin Concent 34.5 32.0-36.0 g/dL Red Cell Distribution Width 14.5 H 11.8-14.3 % Platelet Count 257 140-450 10^3/uL Mean Platelet Volume 6.9 6.9-10.8 fL Neutrophils (%) (Auto) 68.0 37.0-80.0 % Lymphocytes (%) (Auto) 25.5 10.0-50.0 % Monocytes (%) (Auto) 4.4 0.0-12.0 % Eosinophils (%) (Auto) 1.8 0.0-7.0 % Basophils (%) (Auto) 0.3 0.0-2.0 % Neutrophils # (Auto) 4.4 1.6-8.6 10 ^3/uL Lymphocytes # (Auto) 1.7 0.4-5.4 10 ^3/uL Monocytes # (Auto) 0.3 0-1.3 10 ^3/uL Eosinophils # (Auto) 0.1 0-0.8 10 ^3/uL Basophils # (Auto) 0 0-0.2 10 ^3/uL Nucleated Red Blood Cells 0.0 % Sodium Level 141 136-145 mmol/L Potassium Level 4.1 3.5-5.1 mmol/L Chloride Level 104 98-107 mmol/L Carbon Dioxide Level 29 20-31 mmol/L Anion Gap 8 5-15 Blood Urea Nitrogen 9 9-23 mg/dL Creatinine 0.72 0.550-1.02 mg/dL Glomerular Filtration Rate Calc 91 >90 mL/min BUN/Creatinine Ratio 12.5 10.0-20.0 Serum Glucose 225 H 74-106 mg/dL Calcium Level 9.2 8.7-10.4 mg/dL Current Medications Medications (Trade) Dose Ordered Sig/Tim Route Start Time Stop Time Status Last Admin Ondansetron HCl (Zofran Po) 4 mg ONCE ONCE PO 07/30/25 15:30 07/30/25 15:52 DC 07/30/25 16:18 Time of 1ST Reevaluation: 16:25 Reevaluation 1ST: Unchanged Patient Education/Counseling: Diagnosis, Treatment Family Education/Counseling: No Family Present Comments The patient presented from discharge clinic follow up visit due to elevated blood glucose and persistence of generalized weakness The patient was recently discharged from this institution on with home IV ertapenem. On initial evaluation, the patient seemed well, BP was 175/82 mmHg, other vitals were stable, blood glucose 225, and she states she feels well except for some fatigue CBC shows normocytic anemia which is improving from previous lab values, BMP significant for hyperglycemia, and UA is signficant for UTI, however it is much improved from previous study. Follow up vitals are improved, patient is educated on the importance of taking her blood pressure medications and has been recommended to follow up with her PCP within 1 week The patient is stable at this time, and is considered stable for discharge home to continue home IV antibiotics SEPSIS Sepsis Screen Date sepsis recognized/suspect: Jul 30, 2025 Time Sepsis recognized/suspect: 1448 Recent Procedure: No On Antibiotic Therapy: No Respiratory Rate >20: No Heart Rate >90: No Temp<36 C (96.8 F) or >38.3 C: No SBP <90 or MAP <65 mmHG: No New Acute Mental Status Change: No Is the patient on CPAP, BIPAP,: No Vital Signs Date Time Temp Pulse Resp B/P (MAP) Pulse Ox O2 Delivery O2 Flow Rate FiO2 07/30/25 14:45 97.4 73 16 175/82 98 97.4 Laboratory Tests Test 07/30/25 16:05 White Blood Count 6.5 10^3/uL (4.4-10.8) Medications Medications Dose Ordered Sig/Tim Route Start Time Stop Time Status Last Admin Dose Admin Ondansetron HCl 4 mg ONCE ONCE PO 07/30/25 15:30 07/30/25 15:52 DC 07/30/25 16:18 Departure 1 Departure Time of Disposition: 17:01 Impression: Primary Impression: UTI (urinary tract infection) Disposition: 01 HOME / SELF CARE / HOMELESS Condition: Stable Additional Instructions: You presented today from discharge clinic appointment due to elevated blood sugar and persistence of generalized weakness Physical exam showed no positive findings Your workup which includes a CBC, BMP, and urinalysis, is significant for improving anemia, hyperglycemia, and UTI, however it is much improved from previous study You were considered stable for discharge home to continue IV antibiotics We recommend you follow up with your primary care physician within 1-2 weeks for continued monitoring If your symptoms persist or worsen, please return to the emergency department Discharged With: Self Critical Care Note Critical Care Time?: No Stability Stability form required: AMOL Jara RESIDENT Jul 30, 2025 15:28
[2025-07-30] MEDS: ONDANSETRON ODT 4 MG TAB PO ONE (16:18)
[2025-07-30 16:24] LABS: Hematocrit 35.1 % (36.0-46.0); Hemoglobin 12.1 g/dL (12.2-16.2); Mean Corpuscular Hemoglobin 27.9 pg (28.0-32.0); Mean Corpuscular Volume 80.9 fL (80.0-100.0); Nucleated Red Blood Cells % 0.0 %
[2025-07-30 16:32] LABS: Chloride 104 mmol/L (98-107); Potassium 4.1 mmol/L (3.5-5.1); Sodium 141 mmol/L (136-145)
[2025-07-30 16:33] LABS: Anion Gap 8 (5-15); Carbon Dioxide 29 mmol/L (20-31)
[2025-07-30 16:34] LABS: Calcium 9.2 mg/dL (8.7-10.4)
[2025-07-30 16:39] LABS: BUN/Creatinine Ratio 12.5 (10.0-20.0); Blood Urea Nitrogen 9 mg/dL (9-23)
[2025-07-30 16:40] LABS: Glucose 225 mg/dL (74-106)
[2025-07-30 16:52] LABS: Urine Budding Yeast OCCASIONAL /hpf (None Seen); Urine Protein, UAD Negative (Negative)
[2025-07-30] MEDS ORDERED: LISI-275 PO (18:01)
[2025-07-30 18:12] VITALS: BP 149/70; PULSE 65; RESP 14; TEMP 97.7; O2SAT 98
== END 2025-07-30 18:16 | disposition home or self-care (01) ==
LOC: ER 14:41
DX: N39.0 Urinary tract infection, site not specified (principal); E11.65 Type 2 diabetes mellitus with hyperglycemia; E78.5 Hyperlipidemia, unspecified; I10 Essential (primary) hypertension; Z79.899 Other long term (current) drug therapy; Z90.710 Acquired absence of both cervix and uterus; Z88.1 Allergy status to other antibiotic agents; Z87.440 Personal history of urinary (tract) infections; Z79.84 Long term (current) use of oral hypoglycemic drugs; Z88.2 Allergy status to sulfonamides; Z88.0 Allergy status to penicillin; Z87.442 Personal history of urinary calculi; Z86.018 Personal history of other benign neoplasm; Z90.49 Acquired absence of other specified parts of digestive tract; Z79.890 Hormone replacement therapy
CPT/HCPCS: 36415; 80048; 81001; 85025; 99283; Q0162